=== PATIENT | female | born 1945 | race Hispanic/Latino ===

== ENCOUNTER 2019-02-21 18:18 | Emergency (ER) | payer OTHER ==
--- OUTSIDE RECORDS SUMMARY | 2019-02-21 18:22 | XMS REPORT | Summary of Care ---
:1945 Author Organization [facility] Address [address] [place] [id number] Encounter HQ He_júnior(MATTEO) [id number] Date(s): 08/06/15 - 08/06/[address] [phone] Discharge Disposition: Home Attending Physician: Livier Ngo MD Referring Physician: Livier Ngo MD Vital Signs Most recent to oldest [Reference Range]: 1 Height 167.64 cm (08/06/15 3:12 PM) Most recent to oldest [Reference Range]: 1 Blood Pressure [90-140/60-90 mmHg] 139/66 mmHg (08/06/15 3:12 PM) Most recent to oldest [Reference Range]: 1 Respiratory Rate [14-20 BRMIN] 18 BRMIN (08/06/15 3:12 PM) Most recent to oldest [Reference Range]: 1 Peripheral Pulse Rate [60-100 bpm] 59 bpm *LOW* (08/06/15 3:12 PM) Most recent to oldest [Reference Range]: 1 Weight 90.455 kg (08/06/15 3:12 PM) Most recent to oldest [Reference Range]: 1 Body Mass Index 32.19 m2 (08/06/15 3:12 PM) Problem List Condition Effective Dates Status Health Status Informant Gait abnormality(Confirmed) Active Diabetes mellitus(Confirmed) Active 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 Hypertension(Confirmed) Active Neurogenic bladder(Confirmed) Active Neurogenic bowel(Confirmed) Resolved Neuropathic pain(Confirmed) Active Obesity(Confirmed) Active 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) Vertigo(Confirmed) Active Allergies, Adverse Reactions, Alerts Substance Reaction Severity Status NKDA Active Medications DULoxetine 30 mg oral delayed release capsule 30 mg=1 cap, PO, Daily, # 30 cap, 0 Refill(s) Start Date: 08/06/15 Status: Orderedmeclizine 25 mg oral tablet 25 mg=1 tab, PO, BID, PRN for dizziness, # 60 tab, 0 Refill(s) Start Date: 08/06/15 Status: Orderedmeloxicam 7.5 mg oral tablet 7.5 mg=1 tab, PO, Daily, # 30 tab, 0 Refill(s) Start Date: 08/06/15 Status: Ordered Results No data available for this section Immunizations No data available for this section Procedures Procedure Date Related Diagnosis Body Site Appendectomy Bunionectomy Cholecystectomy Procedure on back Social History Social History Type Response Smoking Status Never smoker; Exposure to Tobacco Smoke None; Cigarette Smoking Last 365 Days No; Reg Smoking Cessation Counseling No Assessment and Plan No data available for this section
--- OUTSIDE RECORDS SUMMARY | 2019-02-21 18:22 | XMS REPORT | Summary of Care ---
:1945 Author Organization [facility] Address [address] [place] [phone] Encounter HQ Lluvia(MATTEO) [id number] Date(s): 04/28/16 - 04/28/[address] Discharge Disposition: Home Attending Physician: Livier Ngo MD Referring Physician: Livier Ngo MD Vital Signs Most recent to oldest [Reference Range]: 1 Height 167.64 cm (04/28/16 3:13 PM) Blood Pressure [90-140/60-90 mmHg] 130/63 mmHg (04/28/16 3:13 PM) Respiratory Rate [14-20 BRMIN] 20 BRMIN (04/28/16 3:13 PM) Peripheral Pulse Rate [60-100 bpm] 63 bpm (04/28/16 3:13 PM) Weight 77.273 kg (04/28/16 3:13 PM) Body Mass Index 27.5 m2 (04/28/16 3:13 PM) Problem List Condition Effective Dates Status Health Status Informant Gait abnormality(Confirmed) Active Diabetes mellitus(Confirmed) 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 Hypertension(Confirmed) Active Neurogenic bladder(Confirmed) Active Neurogenic bowel(Confirmed) Resolved Neuropathic pain(Confirmed) Active Obesity(Confirmed) Active 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
--- OUTSIDE RECORDS SUMMARY | 2019-02-21 18:22 | XMS REPORT | Summary of Care ---
:1945 Author Encounter MELVI Teixeira(MATTEO) [id number] Date(s): 11/27/14 - 11/27/[address] [phone] [facility] Discharge Disposition: Home Physician Attending: Livier Ngo MD Physician_Referring: Livier Ngo MD Reason for Visit F/U Vital Signs Most recent to oldest [Reference Range]: 1 Height 167.64 cm (11/27/14 2:47 PM) Systolic Blood Pressure [90-140 mmHg] 147 mmHg *HI* (11/27/14 2:47 PM) Diastolic Blood Pressure [60-90 mmHg] 88 mmHg (11/27/14 2:47 PM) Respiratory Rate [14-20 BRMIN] 20 BRMIN (11/27/14 2:47 PM) Peripheral Pulse Rate [60-100 bpm] 73 bpm (11/27/14 2:47 PM) Weight 88.636 kg (11/27/14 2:47 PM) Body Mass Index 31.54 m2 (11/27/14 2:47 PM) Problem List Condition Effective Dates Status Health Status Informant Gait abnormality(Confirmed) Active Diabetes mellitus(Confirmed) 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 Hypertension(Confirmed) Active Neurogenic bladder(Confirmed) Active Neurogenic bowel(Confirmed) Resolved Neuropathic pain(Confirmed) Active 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) Vertigo(Confirmed) Active Allergies, Adverse Reactions, Alerts Substance Reaction Severity Status NKDA Active Medications Home Medication Refill(s) 0 Start Date: 11/27/14 Status: OrderedNexIUM 40 mg oral delayed release capsule 40 mg=1 cap, PO, Daily, # 30 cap, 0 Refill(s) Start Date: 11/27/14 Status: Ordered Medications Administered During Your Visit No data available for this section Immunizations No data available for this section Social History Social History Type Response Smoking Status Never smoker, Exposure to Tobacco Smoke None, Cigarette Smoking Last 365 Days No, Reg Smoking Cessation Counseling Yes
--- OUTSIDE RECORDS SUMMARY | 2019-02-21 18:22 | XMS REPORT | Summary of Care ---
:1945 Author Encounter MELVI Teixeira(MATTEO) [id number] Date(s): 08/14/14 - 08/14/[address] [phone] [facility] [place] Discharge Disposition: Home Physician Attending: Livier Ngo MD Physician_Referring: Livier Ngo MD Reason for Visit POST D/C FU Vital Signs Most recent to oldest [Reference Range]: 1 Height 167.64 cm (08/14/14 2:55 PM) Systolic Blood Pressure [90-140 mmHg] 117 mmHg (08/14/14 2:55 PM) Diastolic Blood Pressure [60-90 mmHg] 59 mmHg *LOW* (08/14/14 2:55 PM) Respiratory Rate [14-20 BRMIN] 20 BRMIN (08/14/14 2:55 PM) Peripheral Pulse Rate [60-100 bpm] 65 bpm (08/14/14 2:55 PM) Weight 90 kg (08/14/14 2:55 PM) Body Mass Index 32.02 m2 (08/14/14 2:55 PM) Problem List Condition Effective Dates Status Health Status Informant Gait abnormality(Confirmed) Active Diabetes mellitus(Confirmed) 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 Hypertension(Confirmed) Active Neurogenic bladder(Confirmed) Active Neurogenic bowel(Confirmed) Resolved Neuropathic pain(Confirmed) Active 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) Vertigo(Confirmed) Active Allergies, Adverse Reactions, Alerts Substance Reaction Severity Status NKDA Active Medications Centrum oral tablet 1 tab, PO, Daily, # 30 tab, 0 Refill(s) Start Date: 08/14/14 Status: OrderedDULoxetine 60 mg oral delayed release capsule 60 mg=1 cap, PO, Daily, # 30 cap, 0 Refill(s) Start Date: 08/14/14 Status: OrderedVESIcare 5 mg oral tablet 5 mg=1 tab, PO, Daily, # 30 tab, 0 Refill(s) Start Date: 08/14/14 Status: Ordered Results ELECTROLYTES Most recent to oldest [Reference Range]: 1 Sodium Lvl [135-145 mEq/L] 144 mEq/L (08/14/14 4:55 PM) Potassium Lvl [3.5-5.1 mEq/L] 3.9 mEq/L (08/14/14 4:55 PM) Chloride Lvl [95-109 mEq/L] 107 mEq/L (08/14/14 4:55 PM) CO2 [24-32 mEq/L] 28 mEq/L (08/14/14 4:55 PM) AGAP [10.0-20.0 mEq/L] 12.9 mEq/L (08/14/14 4:55 PM) CHEM PANEL Most recent to oldest [Reference Range]: 1 Creatinine Lvl [0.5-1.4 mg/dL] 0.8 mg/dL (08/14/14 4:55 PM) eGFR 77 mL/min/1.73m2 1 *NA* (08/14/14 4:55 PM) BUN [7-22 mg/dL] 21 mg/dL (08/14/14 4:55 PM) B/C Ratio [6-25] 26 *HI* (08/14/14 4:55 PM) Glucose Lvl [70-99 mg/dL] 114 mg/dL 2 *HI* (08/14/14 4:55 PM) Total Protein [6.4-8.4 g/dL] 6.8 g/dL (08/14/14 4:55 PM) Albumin Lvl [3.5-5.0 g/dL] 4.0 g/dL (08/14/14 4:55 PM) Globulin [2.0-4.0 g/dL] 2.8 g/dL (08/14/14 4:55 PM) A/G Ratio [0.7-1.6] 1.4 (08/14/14 4:55 PM) Calcium Lvl [8.5-10.5 mg/dL] 9.0 mg/dL (08/14/14 4:55 PM) ALT [0-65 unit/L] 18 unit/L (08/14/14 4:55 PM) AST [0-37 unit/L] 12 unit/L (08/14/14 4:55 PM) Alk Phos [39-136 unit/L] 108 unit/L (08/14/14 4:55 PM) Bili Total [0.2-1.3 mg/dL] 0.5 mg/dL (08/14/14 4:55 PM) 1Result Comment: The eGFR is calculated using the CKD-EPI formula. In most young , healthy individualsthe eGFR will be >90 mL/min/1.73m2. The eGFR declines with age. An eGFR of 60-89 may be normal in some populations, particularly the elderly, for whom the CKD-EPI formula has not been extensively validated. Use of the eGFR is not recommended in the following populations: Individuals with unstable creatinine concentrations, including patients and those with serious co-morbid conditions. Patients with extremes in muscle mass or diet. The data above are obtained from the National Kidney Disease Education Program ( NKDEP) which additionally recommends that when the eGFR is used in patients with extremes of body mass index for purposesof drug dosing, the eGFR should be multiplied by the estimated BMI.2Interpretive Data: Adult reference range values reflect the clinical guidelines of the [place] [employer].ANEMIA STUDY Most recent to oldest [Reference Range]: 1 Vitamin B12 Lvl [254-1320 pg/mL] 383 pg/mL (08/14/14 4:55 PM) Folate Lvl [>=3.0 ng/mL] 25.9 ng/mL (08/14/14 4:55 PM) THYROID PANEL Most recent to oldest [Reference Range]: 1 T4 Free [0.76-1.46 ng/dL] 0.98 ng/dL (08/14/14 4:55 PM) TSH [0.360-3.740 uIU/mL] 1.090 uIU/mL (08/14/14 4:55 PM) HEMATOLOGY Most recent to oldest [Reference Range]: 1 WBC [3.7-10.4 K/CMM] 5.9 K/CMM (08/14/14 4:55 PM) RBC [4.20-5.40 M/CMM] 4.33 M/CMM (08/14/14 4:55 PM) Hgb [12.0-16.0 g/dL] 13.0 g/dL (08/14/14 4:55 PM) Hct [36.0-48.0 %] 38.6 % (08/14/14 4:55 PM) MCV [80.0-98.0 fL] 89.1 fL (08/14/14 4:55 PM) MCH [27.0-31.0 pg] 30.0 pg (08/14/14 4:55 PM) MCHC [32.0-36.0 g/dL] 33.7 g/dL (08/14/14 4:55 PM) RDW [11.5-14.5 %] 13.5 % (08/14/14 4:55 PM) Platelet [133-450 K/CMM] 168 K/CMM (08/14/14 4:55 PM) MPV [7.4-10.4 fL] 9.4 fL (08/14/14 4:55 PM) Segs [45.0-75.0 %] 56.7 % (08/14/14 4:55 PM) Lymphocytes [20.0-40.0 %] 34.0 % (08/14/14 4:55 PM) Monocytes [2.0-12.0 %] 6.5 % (08/14/14 4:55 PM) Eosinophils [0.0-4.0 %] 2.2 % (08/14/14 4:55 PM) Basophils [0.0-1.0 %] 0.6 % (08/14/14 4:55 PM) Segs-Bands # [1.5-8.1 K/CMM] 3.4 K/CMM (08/14/14 4:55 PM) Lymphocytes # [1.0-5.5 K/CMM] 2.0 K/CMM (08/14/14 4:55 PM) Monocytes # [0.0-0.8 K/CMM] 0.4 K/CMM (08/14/14 4:55 PM) Eosinophils # [0.0-0.5 K/CMM] 0.1 K/CMM (08/14/14 4:55 PM) Medications Administered During Your Visit No data available for this section Immunizations No data available for this section Social History Social History Type Response Smoking Status Never smoker, Exposure to Tobacco Smoke None, Cigarette Smoking Last 365 Days No, Reg Smoking Cessation Counseling No
--- OUTSIDE RECORDS SUMMARY | 2019-02-21 18:22 | XMS REPORT | Continuity of Care Document ---
:1945 Author Organization Interface Problems Problem Status Onset Classification Date Comments Source Date Reported MARIAM F/U Active 01/30/20 [facility] 16 F/U Active 08/06/20 [facility] 15 POST D/C FU Active 05/07/20 [facility] 14 BILATERAL Active 02/05/[address] WEAKNESS Active 02/05/20 [facility],[address] Gait abnormality Active Problem 05/01/2016 [facility] Diabetes Active Problem 05/01/2016 [facility] mellitus Guillain [place] Active Problem 05/01/2016 [facility] syndrome Hypertension Active Problem 05/01/2016 [facility] Neurogenic Active Problem 05/01/2016 [facility] bladder Neurogenic bowel Resolved Problem 05/01/2016 [facility] Neuropathic pain Active Problem 05/01/2016 [facility] Obesity Active Problem 05/01/2016 [facility] AIDP (<span Active Problem 05/01/2016 [facility] ID="[id number]" >Confirmed</span >) Vertigo Active Problem 05/01/2016 [facility] MALAISE AND Active [facility] FOLLOW-UP EXAM Active [facility] NOS BRAIN INJURY NEC Active [facility] LT EFF Active [facility] INTRACRANIAL INJ INTCRAN INJ W/O Active [facility] LOSS OF CONSCIOUSNESS, I Medications Medication Details Route Status Patient Ordering Order Source Instructions Provider Date Metformin 500 mg=1 Active 04/28/20 [facility] hydrochloride tab, PO, 16 500 MG Oral BID-Meals, Tablet # 180 tab, 0 Refill(s) azelastine / 1 spray, Active 04/28/20 [facility] fluticasone NASAL, 16 BID, 0 Refill(s) Loratadine 10 mg=1 Active 04/28/20 [facility] tab, PO, 16 Daily, PRN Itching / rash / allergy symptoms, # 14 tab, 0 Refill(s) meclizine 25 mg 25 mg=1 Active 08/06/20 [facility] oral tablet tab, PO, 15 BID, PRN for dizziness, # 60 tab, 0 Refill(s) meloxicam 7.5 mg 7.5 mg=1 Active 08/06/20 [facility] oral tablet tab, PO, 15 Daily, # 30 tab, 0 Refill(s) DULoxetine 30 mg 30 mg=1 Active 08/06/20 [facility] oral delayed cap, PO, 15 release capsule Daily, # 30 cap, 0 Refill(s) Home Medication Refill(s) Active 11/27/20 [facility] 0 14 Esomeprazole 40 40 mg=1 Active 11/27/20 [facility] MG Enteric cap, PO, 14 Coated Capsule Daily, # [Nexium] 30 cap, 0 Refill(s) solifenacin 5 mg=1 Active 08/14/20 [facility] succinate 5 MG tab, PO, 14 Oral Tablet Daily, # [VESICARE] 30 tab, 0 Refill(s) DULoxetine 60 mg 60 mg=1 Active 08/14/20 [facility] oral delayed cap, PO, 14 release capsule Daily, # 30 cap, 0 Refill(s) Centrum oral 1 tab, PO, Active 08/14/20 [facility] tablet Daily, # 14 30 tab, 0 Refill(s) Allergies, Adverse Reactions, Alerts Substance Category Reaction Severity Reaction Status Date Comments Source type Reported Immunizations Immunization Date Given Site Status Last Updated Comments Source Results Order Name Results Value Reference Date Interpretation Comments Source Range ANEMIA Folate Lvl 25.9 ng/mL >=3.0 08/14 [facility] STUDY ng/mL /2013 ANEMIA Vitamin B12 383 pg/mL 254 - 1320 08/14 [facility] STUDY Lvl CHEM PANEL eGFR 77 08/14 1Result Comment: The eGFR is calculated using the CKD-EPI formula. In most young, healthy individuals the eGFR will be >90 mL/ min/1.73m2. The eGFR declines with age. An eGFR of 60-89 may be normal in [facility] mL/min/1.73 some populations, particularly the elderly, for whom the CKD-EPI formula has not been extensively validated. Use of the eGFR is not recommended in the following populations: m2 Individuals with unstable creatinine concentrations, including patients and those with serious co-morbid conditions. Patients with extremes in muscle mass or diet. The data above are obtained from the National Kidney Disease Education Program (NKDEP) which additionally recommends that when the eGFR is used in patients with extremes of body mass index for purposes of drug dosing, the eGFR should be multiplied by the estimated BMI. CHEM PANEL Bili Total 0.5 mg/dL 0.2 - 1.3 08/14 [facility] CHEM PANEL Alk Phos 108 unit/L 39 - 136 08/14 [facility] CHEM PANEL AST 12 unit/L 0 - 37 08/14 [facility] CHEM PANEL ALT 18 unit/L 0 - 65 08/14 [facility] CHEM PANEL Sodium Lvl 144 meq/L 135 - 145 08/14 [facility] CHEM PANEL Potassium 3.9 meq/L 3.5 - 5.1 08/14 [facility] Lv CHEM PANEL Chloride Lvl 107 meq/L 95 - 109 08/14 [facility] CHEM PANEL Creatinine 0.8 mg/dL 0.5 - 1.4 08/14 [facility] Lv CHEM PANEL BUN 21 mg/dL 7 - 22 08/14 [facility] CHEM PANEL CO2 28 meq/L 24 - 32 08/14 [facility] CHEM PANEL Calcium Lvl 9.0 mg/dL 8.5 - 10.5 08/14 [facility] CHEM PANEL Total 6.8 g/dL 6.4 - 8.4 08/14 CHEM PANEL Albumin Lvl 4.0 g/dL 3.5 - 5.0 08/14 [facility] CHEM PANEL Glucose Lvl 114 mg/dL 70 - 99 08/14 2Interpretive Data: Adult reference range values reflect the clinical guidelines of the [place] [employer]. CHEM PANEL AGAP 12.9 meq/L 10.0 - 08/14 [facility] 20. CHEM PANEL B/C Ratio 26 6 - 25 08/14 [facility] CHEM PANEL Globulin 2.8 g/dL 2.0 - 4.0 08/14 [facility] CHEM PANEL A/G Ratio 1.4 0.7 - 1.6 08/14 [facility] HEMATOLOGY RDW 13.5 % 11.5 - 08/14 [facility] 14. HEMATOLOGY Platelet 168 K/CMM 133 - 450 08/14 [facility] HEMATOLOGY MCV 89.1 fL 80.0 - 08/14 [facility] 98.0 /2013 HEMATOLOGY Hct 38.6 % 36.0 - 08/14 [facility] 48.0 /2013 HEMATOLOGY MCHC 33.7 g/dL 32.0 - 08/14 [facility] 36.0 /2013 HEMATOLOGY MCH 30.0 pg 27.0 - 08/14 [facility] 31.0 /2013 HEMATOLOGY Hgb 13.0 g/dL 12.0 - 08/14 [facility] 16.0 HEMATOLOGY RBC 4.33 M/CMM 4.20 - 08/14 [facility] 5.40 /2013 HEMATOLOGY WBC 5.9 K/CMM 3.7 - 10.4 08/14 [facility] /2013 HEMATOLOGY MPV 9.4 fL 7.4 - 10.4 08/14 [facility] /2013 HEMATOLOGY Monocytes 6.5 % 2.0 - 12.0 08/14 [facility] /2013 HEMATOLOGY Eosinophils 2.2 % 0.0 - 4.0 08/14 [facility] /2013 HEMATOLOGY Basophils 0.6 % 0.0 - 1.0 08/14 [facility] /2013 HEMATOLOGY Segs-Bands # 3.4 K/CMM 1.5 - 8.1 08/14 [facility] /2013 HEMATOLOGY Segs 56.7 % 45.0 - 08/14 [facility] 75.0 /2013 HEMATOLOGY Lymphocytes 34.0 % 20.0 - 08/14 [facility] 40.0 HEMATOLOGY Eosinophils 0.1 K/CMM 0.0 - 0.5 08/14 [facility] # /2013 HEMATOLOGY Lymphocytes 2.0 K/CMM 1.0 - 5.5 08/14 [facility] # /2013 HEMATOLOGY Monocytes # 0.4 K/CMM 0.0 - 0.8 08/14 [facility] /2013 THYROID T4 Free 0.98 ng/dL 0.76 - 08/14 [facility] PANEL 1.46 THYROID TSH 1.090 0.360 - 08/14 [facility] PANEL uIU/mL 3.740 /2013 Chest 1view Chest 1view PORTABLE CHEST 2014-02-05 16:28:00 02/05 - - [facility] COMPARISON: None Read by: Callum Foote Dictated Date/time: 02/05/14 16:51 Electronically Signed by: Callum Foote MD 02/05/14 16:52 FINAL REPORT CLINICAL INDICATION: Dyspnea DISCUSSION: Lung volumes are low. Subsegmental atelectasis is seen within the left lower lobe. No evidence of airspace disease. No pleural effusions or pneumothorax. Cardiac silhouette is normal in size. Aorta is unfolded. IMPRESSION: Subsegmental atelectasis within left lower lobe. Spine Spine entire EXAM: MRI SPINE, ENTIRE 02/04 - [facility] entire w/wo w/ /2013 - Medical contrast contrast MRI Center MRI DATE: 2014-02-04 19:53:00. Read by: Francisco J Gerard Dictated Date/time: 02/05/14 09:50 Electronically Signed by: Francisco J Gerard MD 02/05/14 10:31 FINAL REPORT INDICATION: TECHNIQUE: Sagittal T1, sagittal T2, axial T1, and axial T2-weighted images of the cervical, thoracic and lumbar spine are obtained without contrast. Postcontrast sagittal and axial T1-weighted images were also obtained after the uneventful administration of 17 cc intravenous gadolinium. FINDINGS: The examination is performed as a study of the entire spine entire spine. Therefore, axial images are obtained at a greater than standard interval. As a consequence, evaluation of the patient's degenerative disease is somewhat limited. Cervical Spine: The visualized portions of the brain parenchyma are unremarkable. The craniocervical junction has a normal appearance. The cerebellar tonsils are in the normal position. No focal signal abnormality is i dentified within the cervical cord. No intradural pathology is present. There is reversal of the cervical lordotic curvature centered at C5. Generative retrolisthesis of C3 is present with respect to C4. Similarly, there is degenerative retrolisthesis of C5 with respect to the adjacent 2 vertebral bodies. Vertebral height is maintained and marrow signal is unremarkable. C2-C3: Unremarkable C3-C4: No focal disk pathology a diffuse bulge of the posterior annulus combines with redundancy of the ligamenta flava to narrow the ventral and dorsal subarachnoid spaces without cord compression. The foramina are grossly patent. C4-C5: Minimal degenerative changes are present without focal disc pathology. The foramina appear patent. C5-C6: As a result of the alignment abnormality there is narrowing of the ventral subarachnoid space and posterior displacement of the cord with possible ventral indentation. Bilateral foraminal narrowi ng is noted, mild on the right and minimal on the left. C6-C7: Unremarkable C7-T1: Unremarkable Thoracic Spine: Minimal right convex curvature of the thoracic spine is noted. AP alignment is normal. Marrow signal is normal. Intervertebral disk height is maintained. No focal disk pathology is identified. No spinal canal stenosis is present. Signal, caliber and contour of the spinal cord is unremarkable. No pathologic enhancement is identified after administration of intravenous contrast. Lumbar Spine: The conus medullaris terminates at the L1 level. It has a normal contour and normal signal characteristics. No intradural pathology is identified. Alignment is normal. Vertebral height and signal characteristics are unremarkable. Elevated T2 signal in the posterior disc annulus at L3-L4 is parallel to the posterior longitudinal ligament and evidence of degenerative change rather than a radial tear. No focal disc pathology is present at this level otherwise. L4-L5, there is minimal loss of disc signal intensity although disc height is maintained. L5-S1 there is loss of intervertebral disc height and signal, most pronounced posteriorly. The patient has had prior laminectomies at this level. No residual or recurrent disc protrusion is evident. Intervertebral disk height and signal are otherwise maintained. No other focal disk pathology is evident. There is no evidence of significant spinal canal or neural foraminal stenosis. No pathologic enh ancement is identified after administration of intravenous contrast. IMPRESSION: The examination is performed as a study of the entire spine entire spine. Therefore, axial images are obtained at a greater than standard interval. As a consequence, evaluation of the patient's degenerative disease is somewhat limited. 1. No cord neoplasm or other cord signal to indicate demyelinating disease or infection. 2. No extradural mass lesion. 3. The nerve roots do not appear thickened or to enhance pathologically. 4. Cervical spine degenerative changes resulting in a mild degree of cord impingement at C5-C6. 5. Lumbar degenerative disease at L5-S1 with evidence of prior surgery. No residual or recurrent disc herniation is present. Vital Signs Vital Sign Value Date Comments Source Weight 77.273 04/28/2016 [facility] Height 167.64 cm 04/28/2016 [facility] BMI Calculated 27.5 04/28/2016 [facility] Respitory Rate 20 04/28/2016 [facility] Systolic (mm Hg) 130 04/28/2016 [facility] Diastolic (mm Hg) 63 04/28/2016 [facility] Heart Rate 63 04/28/2016 [facility] Height 167.64 cm 08/06/2015 [facility] Weight 90.455 08/06/2015 [facility] BMI Calculated 32.19 08/06/2015 [facility] Systolic (mm Hg) 139 08/06/2015 [facility] Diastolic (mm Hg) 66 08/06/2015 [facility] Respitory Rate 18 08/06/2015 [facility] Heart Rate 59 08/06/2015 [facility] Height 167.64 cm 11/27/2014 [facility] Weight 88.636 11/27/2014 [facility] BMI Calculated 31.54 11/27/2014 [facility] Diastolic (mm Hg) 88 11/27/2014 [facility] Respitory Rate 20 11/27/2014 [facility] Systolic (mm Hg) 147 11/27/2014 [facility] Heart Rate 73 11/27/2014 [facility] Diastolic (mm Hg) 59 08/14/2014 [facility] Systolic (mm Hg) 117 08/14/2014 [facility] Respitory Rate 20 08/14/2014 [facility] Heart Rate 65 08/14/2014 [facility] Weight 90 08/14/2014 [facility] BMI Calculated 32.02 08/14/2014 [facility] Height 167.64 cm 08/14/2014 [facility] Encounters Location Location Encounter Encounter Reason Attending ADM DC Status Source Details Type Number For Provider Date Date [facility] [id number] 08[facility]14 08/15 [facility]2013 [facility] [id number] Livier 11/27 11/28 [facility]- /2013 [facility] [place] [facility] [id number] [place] 08/06 08/07 [facility] /2014 [facility] [id number] [place] 04/28 04/29 [facility] /2015 [facility] Procedures Procedure Code Date Perfomer Comments Source Appendectomy [id number] [facility] Bunionectomy [id number] [facility] Cholecystectomy [id number] [facility] Procedure on back [id number] [facility]
--- NOTE | 2019-02-21 20:16 | RAD REPORT ---
EXAM DESCRIPTION: Nabila García (2 Views)02/21/2019 7:50 pm CLINICAL HISTORY: Chest pain COMPARISON: None FINDINGS: The lungs appear clear of acute infiltrate. The heart is normal size IMPRESSION: No acute abnormalities displayed
--- NOTE | 2019-02-21 20:48 | RAD REPORT ---
EXAM DESCRIPTION: RAD - Knee Right 3 View - 02/21/2019 8:43 pm CLINICAL HISTORY: Right knee pain FINDINGS: No fracture or dislocation is seen.
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
--- NOTE | 2019-02-21 21:05 | RAD REPORT ---
EXAM DESCRIPTION: RAD - Knee Left 3 View - 02/21/2019 8:43 pm CLINICAL HISTORY: Left knee pain status post injury FINDINGS: No fracture or dislocation is seen.
[2019-02-21] MEDS ORDERED: IBUPROFEN 400 MG TAB ONE (21:17)
[2019-02-21 22:25] VITALS: BP 124/59; TEMP 97.8; O2SAT 97
== END 2019-02-21 21:22 | disposition home or self-care (01) ==
LOC: ER 18:18
DX: R07.89 Other chest pain (principal); M25.562 Pain in left knee; M25.561 Pain in right knee; V49.50XA Passenger injured in collision with unspecified motor vehicles in traffic accident, initial encounter; Z79.82 Long term (current) use of aspirin; E11.9 Type 2 diabetes mellitus without complications
CPT/HCPCS: 71046; 99284

== ENCOUNTER 2023-11-07 10:08 | Inpatient (IN) | payer OTHER ==
[2023-11-07 10:52] LABS: Absolute Lymphocytes (CBC) 0.4 K/uL (0.7-4.9); Hematocrit 36.7 % (36.0-45.0); Lymphocytes % 5.8 % (15.3-44.8); MCV 87.5 fL (80-100); MPV 8.1 fL (7.6-11.3); Platelets 168 thou/uL (152-406); RBC Red Blood Cell Count 4.19 M/uL (3.86-4.86)
[2023-11-07 10:59] LABS: Protime INR 1.18
--- NOTE | 2023-11-07 11:03 | RAD REPORT ---
[facility] CLINICAL HISTORY: COUGH COMPARISON: Chest Pa And Lat (2 Views) dated 02/21/2019; Chest Single View dated 09/15/2017; Chest Si ngle View dated 07/29/2016; CHEST SINGLE VIEW dated 06/24/2011 TECHNIQUE: Portable AP view of the chest. FINDINGS: Decreased inspiratory effort limits evaluation. Streaky perihilar opacities and bronchial wall thickening. No pneumothorax or effusion. The cardiomediastinal contours are unremarkable. IMPRESSION: Findings suggestive of reactive airway changes or viral infection, without evidence of f ocal pneumonia.
[2023-11-07 11:10] LABS: Albumin 3.7 g/dL (3.4-5.0); Bilirubin Total 0.8 mg/dL (0.2-1.0); Potassium 3.5 mEq/L (3.5-5.1); Protein, Total 7.4 g/dL (6.4-8.2)
[2023-11-07] MEDS ORDERED: NA CHLORIDE 0.9% 500 ML ONE (11:14)
[2023-11-07] MEDS ORDERED: ACETAMINOPHEN 500 MG TAB ONE (11:14)
[2023-11-07 11:47] LABS: SARS-CoV-2 Antigen Rapid Res Negative (Negative)
--- NOTE | 2023-11-07 12:06 | RAD REPORT ---
EXAM DESCRIPTION: CT - Head C Spine Cap Mian Regan - 11/07/2023 11:21 am CLINICAL HISTORY: fall, head/neck/back pain, weak lower ext COMPARISON: MRI brain 01/10/2020 TECHNIQUE: Head and cervical spine CT images were obtained without IV contrast. Chest, abdomen, and pelvis CT images were obtained following intravenous administration of 100 mL Isovue-300. Multiplanar reformats were generated and reviewed. All CT scans are performed using dose optimization technique as appropriate and may include automated exposure control or mA/KV adjustment according to patient size. FINDINGS: CT HEAD: No intracranial hemorrhage, mass effect, or edema. No evidence of acute territorial infarct. No midli ne shift or abnormal fluid collection. The ventricles are normal in caliber and configuration for age . Basal cisterns are patent. Mastoid aircells and paranasal sinuses are clear. No acute skull fractur e. CT CERVICAL SPINE: No acute cervical spine fracture or subluxation. Vertebral body heights are well maintained. Facet joann ints are normal in alignment. No hyperattenuating canal hematoma. Prevertebral and paraspinous soft t issues are unremarkable. CT CHEST: No pneumothorax, pulmonary contusion or pleural fluid collection. No mediastinal hematoma and the aor ta and pulmonary arteries are unremarkable. No chest will mass or abnormal axillary finding. No displ aced rib fracture or other significant bony finding. CT ABDOMEN/ PELVIS: No evidence of traumatic injury to solid abdominal viscera. Gallbladder was surgically removed. Bilia ry tree is unremarkable. Mild colonic diverticulosis. Right lower pole cortical fluid density 1.3 cm cyst. No bowel injury or significant finding. No free air, free fluid or abnormal fat stranding. No u rinary bladder abnormality. No significant bony finding. Subcutaneous soft tissue swelling and fat stranding along the anterior right upper thigh. IMPRESSION: Mild soft tissue contusion along the included anterior right upper thigh. No other acute traumatic findings. Incidental findings as above.
[2023-11-07] MEDS ORDERED: OSELTAMIVIR 75 MG CAP PO ONE (12:29)
--- NOTE | 2023-11-07 12:34 | ER ---
Nurse's Notes [facility] Name: Gabriella Whyte Age: 77 yrs Sex: Female : 1945 Arrival Date: 11/07/2023 Time: 10:08 Bed 7 Private MD: Diagnosis: Influenza due to identified novel influenza A virus with other respiratory manifestations;Weakness Presentation: 11/07 10:13 Chief complaint: EMS states: Pt fell this morning around one and landed on her right rs5 side, pt denies LOC, reports feeling weak. Coronavirus screen: At this time, the client does not indicate any symptoms associated with coronavirus-19. Ebola Screen: No symptoms or risks identified at this time. Initial Sepsis Screen: Does the patient meet any 2 criteria? HR > 90 bpm. Does the patient have a suspected source of infection? No. Patient's initial sepsis screen is negative. Risk Assessment: Do you want to hurt yourself or someone else? Patient reports no desire to harm self or others. Onset of symptoms was November 07, 2023. Care prior to arrival: IV initiated. 22 GA, in the right hand. 10:13 Method Of Arrival: EMS: 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 - Social history:: Smoking status: Patient denies any tobacco usage or history of. - Family history:: not pertinent. - Hospitalizations: : No recent hospitalization is reported. - History obtained from: grandson. Screenin:11 [facility] ED Fall Risk Assessment (Adult) History of falling in the last 3 months, rs5 including since admission Yes- single mechanical fall (1 pt) Confusion or Disorientation No (0 pts) Intoxicated or Sedated No (0 pts) Impaired Gait Yes (1 pt) Mobility Assist Device Used No (0 pt) Altered Elimination No (0 pt) Score/Fall Risk Level 0 - 2 = Low Risk Oriented to surroundings, Maintained a safe environment. Abuse screen: Denies threats or abuse. Nutritional screening: No deficits noted. Tuberculosis screening: No symptoms or risk factors identified. Assessment: 10:11 General: Appears in no apparent distress. comfortable, Behavior is calm, cooperative. rs5 Pain: Denies pain. Neuro: Level of Consciousness is awake, alert, obeys commands, Oriented to person, place, time, situation. Neuro: Weather Teacher are equal bilaterally Moves all extremities. Speech is normal, Facial symmetry appears normal, Pupils are PERRLA, Pupil Size: 3 mm Intact Pt reports lower extremity weakness bilat. Pt states "I'm usually able to walk around just fine without a walker or a cane, I don't know why but my legs started feeling really weak and heavy this morning around one in the morning and so I fell this morning and I had trouble getting up". Cardiovascular: Heart tones S1 S2 present Patient's skin is warm and dry. Rhythm is regular. Respiratory: Respiratory effort is even, unlabored, Respiratory pattern is regular, symmetrical, Breath sounds are clear bilaterally. GI: Abdomen is round non-distended, Bowel sounds present X 4 quads. Abd is soft and non tender X 4 quads. 10:11 : No signs and/or symptoms were reported regarding the genitourinary system. EENT: No rs5 signs and/or symptoms were reported regarding the EENT system. Derm: Skin is intact, Skin is dry, Skin is normal, Skin temperature is warm Small abrasion noted to right knee and right elbow, no bleeding noted. Musculoskeletal: Circulation, motion, and sensation intact. Range of motion: intact in all extremities, Pt reports bilat lower extremity weakness. Pt states "I can move my lower legs just fine when I'm in bed but they feel weak and heavy and I am unable to support my weight". 10:11 Reassessment: Pt has a cervical collar placed by EMS. rs5 11:20 Reassessment: Patient and/or family updated on plan of care and expected duration. Pain rs5 level reassessed. Patient is alert, oriented x 3, equal unlabored respirations, skin warm/dry/pink. 12:30 Reassessment: Pt in bed, eyes closed, respirations even and unlabored, side rails up rs5 x2, normal sinus rhythm noted on monitor . 13:26 Reassessment: No changes from previously documented assessment. rs5 Vital Signs: 10:13 BP 121 / 64; Pulse 110; Resp 17; Temp 99.8(O); Pulse Ox 93% on R/A; rs5 11:42 BP 108 / 54; Pulse 89; Resp 16; Pulse Ox 99% on R/A; iw 12:30 BP 117 / 53; Pulse 77; Resp 18; Pulse Ox 99% on R/A; rs5 13:00 Weight 75.75 kg (R); Height 5 ft. 7 in. ; rs5 13:26 BP 120 / 55; Pulse 75; Resp 17; Pulse Ox 99% on R/A; rs5 13:00 Body Mass Index 26.16 (75.75 kg, 170.18 cm) rs5 ED Course: 10:11 Patient arrived in ED. rn 10:11 Victor Manuel Burt MD is Attending Physician. rn 10:11 Patient has correct armband on for positive identification. Placed in gown. Bed in low rs5 position. Call light in reach. Side rails up X 1. 10:12 Bob Sadler, RN is Primary Nurse. rs5 10:16 Triage completed. rs5 10:58 Chest Single View XRAY In Process Unspecified. EDMS 11:23 CT Traumagram (Head C Spine CAP W Con) In Process Unspecified. EDMS 11:49 No provider procedures requiring assistance completed. rs5 12:33 Ashlee Perrin MD is Hospitalizing Provider. rn 13:51 Patient admitted, IV remains in place. rs5 15:17 initiated transfer to [facility] as requested by Dr Perrin. bd 15:38 pt accepted in transfer to [facility] by Dr Patel,admin approval given by Estephania Murguia RN, pt going to 5 [facility] neuro floor. Administered Medications: 10:30 Drug: NS 0.9% IV 500 ml IV at bolus once Route: IV; Rate: bolus; Site: right rs5 antecubital; 10:45 Follow up: Response: No adverse reaction rs5 11:14 Drug: Acetaminophen PO 650 mg PO once Route: PO; rs5 11:49 Follow up: Response: No adverse reaction rs5 12:15 Drug: Oseltamivir PO 75 mg PO once Route: PO; rs5 Medication: 11:49 VIS not applicable for this client. rs5 Outcome: 12:34 Decision to Hospitalize by Provider. rn 13:50 Admitted to ER Hold. Please see [facility] for further documentation. rs5 13:50 Condition: stable 13:50 Discharge instructions given to patient, family, Instructed on the need for admit, Demonstrated understanding of instructions, 17:56 Patient left the ED. iw Signatures: Dispatcher [employer] Em Andrew Irene, RN RN iw Nieto, Roman, MD MD rn Sotelo, Ricky, RN RN rs5
--- NOTE | 2023-11-07 12:34 | EDPHYS ---
Physician Documentation [facility] Name: Gabriella Whyte Age: 77 yrs Sex: Female : 1945 Arrival Date: 11/07/2023 Time: 10:08 Bed 7 Private MD: ED Physician Victor Manuel Burt HPI: 11/07 10:37 This 77 yrs old Female presents to ER via EMS with complaints of fall, rn weakness. 10:37 Details of fall: The patient fell from an upright position, while standing. Onset: The rn symptoms/episode began/occurred last night. Associated injuries: The patient sustained injury to the head, neck injury. Severity of symptoms: At their worst the symptoms were mild, in the emergency department the symptoms are unchanged. The patient has not experienced similar symptoms in the past. Patient reports fell last night when going to the bathroom. Reports hitting head and pain to head and neck. Reports subjective fever and cough for 2 days. Reports generalized weakness with lower extremities worse than the upper extremities. No shortness of breath.. 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 - Social history:: Smoking status: Patient denies any tobacco usage or history of. - Family history:: not pertinent. - Hospitalizations: : No recent hospitalization is reported. - History obtained from: grandson. ROS: 10:37 Constitutional: Positive for fever Neck: Positive for mild neck pain Cardiovascular: rn Negative for chest pain, palpitations, and edema, Respiratory: Positive for cough, negative for shortness of breath Abdomen/GI: Negative for abdominal pain, nausea, vomiting, diarrhea, and constipation, : Negative for injury, bleeding, discharge, and swelling, MS/Extremity: Negative for injury and deformity, Skin: Negative for injury, rash, and discoloration, Neuro: Positive for headache and generalized weakness Exam: 10:37 Constitutional: This is a well developed, well nourished patient who is awake, alert, rn and in no acute distress. Head/Face: Normocephalic, atraumatic. Eyes: Pupils equal round and reactive to light, extra-ocular motions intact. Periorbital areas with no swelling, redness, or edema. ENT: No oral trauma noted Neck: Patient in c-collar from EMS, no midline tenderness, no swelling, trachea midline Chest/axilla: Normal chest wall appearance and motion. Nontender with no deformity. Cardiovascular: Tachycardic, regular. No pulse deficits. Respiratory: Mild tachypnea. Speaking full sentences. No retractions. Abdomen/GI: Soft, non-tender Back: No spinal tenderness MS/ Extremity: Pulses equal, no cyanosis. Neurovascular intact. Neuro: Awake and alert, GCS 15, oriented to person, place, time, and situation. Cranial nerves II-XII grossly intact. Motor strength 4/5 in all extremities, slightly weaker in lower extremities compared to upper extremities.. Sensory grossly intact. Cerebellar exam normal. 12:46 ECG was reviewed by the Attending Physician. rn Vital Signs: 10:13 BP 121 / 64; Pulse 110; Resp 17; Temp 99.8(O); Pulse Ox 93% on R/A; rs5 11:42 BP 108 / 54; Pulse 89; Resp 16; Pulse Ox 99% on R/A; iw 12:30 BP 117 / 53; Pulse 77; Resp 18; Pulse Ox 99% on R/A; rs5 13:00 Weight 75.75 kg (R); Height 5 ft. 7 in. ; rs5 13:26 BP 120 / 55; Pulse 75; Resp 17; Pulse Ox 99% on R/A; rs5 13:00 Body Mass Index 26.16 (75.75 kg, 170.18 cm) rs5 MDM: 10:11 Patient medically screened. rn 10:37 Care significantly affected by the following chronic conditions: Diabetes, rn Hypertension, Vertigo and history of Guillain-Butler. 12:31 Differential diagnosis: contusion. rn 12:32 Data reviewed: vital signs, nurses notes, and as a result, I will admit patient. rn 12:32 Consideration of Admission/Observation Patient was admitted/placed on observation. rn Escalation of care including admission/observation considered. Management of patient was discussed with the following: Hospitalist: Will see and evaluate patient. Independent interpretation of the following test(s) in the Emergency Department X-Ray: My interpretation is Chest x-ray images show interstitial prominence per my interpretation. Counseling: I had a detailed discussion with the patient and/or guardian regarding the historical points, exam findings, and any diagnostic results supporting the discharge/admit diagnosis, lab results, radiology results, the need for further work-up and treatment in the hospital. Response to treatment: the patient's symptoms have mildly improved after treatment, and as a result, I will admit patient. ED course: Patient with oxygen 93% on room air, signs of viral infection on chest x-ray, positive flu A. I feel like at this time has generalized weakness but lower extremities are slightly weaker than upper extremities. Given history of Guillain-Butler, will observe in hospital to make sure she does not need further workup. At this time I had a long discussion with family and LP not indicated emergently at this time. Will defer to neurology and hospitalist service.. 14:40 ED course: Patient evaluated by Dr. Perrin, who in turn consulted Dr. Frazier, both rn recommend transfer for workup and evaluation for possible Guillain-Butler as they state if that is what she has we do not have IVIG here to administer and treat. Transfer initiated. 14:59 ED course: Inpatient admission orders have been placed, Dr. Perrin will initiate transfer rn now. 11/07 10:12 Order name: Blood Culture Adult (2) rn 11/07 10:12 Order name: CBC with Diff; Complete Time: 11:32 rn 11/07 10:12 Order name: CMP; Complete Time: 11:32 rn 11/07 10:12 Order name: Lactate w/ 2H reflex if indic.; Complete Time: 11:32 rn 11/07 10:12 Order name: Protime (+inr); Complete Time: 11:32 rn 11/07 10:12 Order name: Ptt, Activated; Complete Time: 11:32 rn 11/07 10:12 Order name: Urinalysis w/ reflexes; Complete Time: 14:41 rn 11/07 10:12 Order name: Flu; Complete Time: 12:08 rn 11/07 10:12 Order name: SARS RAPID; Complete Time: 12:08 rn 11/07 13:55 Order name: CBC with Automated Diff EDMS 11/07 13:55 Order name: CBC with Automated Diff EDMS 11/07 13:55 Order name: Comprehensive Metabolic Panel EDMS 11/07 13:55 Order name: Comprehensive Metabolic Panel EDMS 11/07 10:12 Order name: Chest Single View XRAY; Complete Time: 11:32 rn 11/07 10:12 Order name: CT Traumagram (Head C Spine CAP W Con); Complete Time: 12:08 rn 11/07 12:32 Order name: XRAY Femur RIGHT rn 11/07 14:26 Order name: RAD; Complete Time: 14:41 EDMS 11/07 10:12 Order name: EKG; Complete Time: 10:13 rn 11/07 13:55 Order name: CONS Physician Consult EDWA 11/07 10:12 Order name: Accucheck; Complete Time: 11:06 rn 11/07 10:12 Order name: Cardiac monitoring; Complete Time: 11:06 rn 11/07 10:12 Order name: EKG - Nurse/Tech; Complete Time: 11:16 rn 11/07 10:12 Order name: IV Saline Lock - Large Bore; Complete Time: 11:06 rn 11/07 10:12 Order name: Labs collected and sent; Complete Time: 11:06 rn 11/07 10:12 Order name: O2 Per Protocol; Complete Time: 11:06 rn 11/07 10:12 Order name: O2 Sat Monitoring; Complete Time: 11:06 rn 11/07 10:12 Order name: Vital Signs; Complete Time: 11:06 rn EC:46 Rate is 97 beats/min. Rhythm is regular. QRS [place] is Normal. [place] interval is normal. QRS rn interval is normal. QT interval is normal. T waves are Normal. No ST changes noted. Clinical impression: NSR w/ Non-specific ST/T Changes. Interpreted by me. Reviewed by me. Administered Medications: 10:30 Drug: NS 0.9% IV 500 ml IV at bolus once Route: IV; Rate: bolus; Site: right rs5 antecubital; 10:45 Follow up: Response: No adverse reaction rs5 11:14 Drug: Acetaminophen PO 650 mg PO once Route: PO; rs5 11:49 Follow up: Response: No adverse reaction rs5 12:15 Drug: Oseltamivir PO 75 mg PO once Route: PO; rs5 Disposition Summary: 11/07/23 12:34 Hospitalization Ordered Notes: Hospitalization Status: Observation rn Provider: Ashlee Perrin rn Condition: Stable rn Problem: new rn Symptoms: have improved rn Bed/Room Type: Standard rn Location: [facility] ER HOLD(11/07/23 14:27) bd Room Assignment: ERHOLD-(11/07/23 14:27) bd Diagnosis - Influenza due to identified novel influenza A virus with other respiratory rn manifestations - Weakness rn Forms: - Medication Reconciliation Form rn - SBAR form rn - Leadership Thank You Letter rn Signatures: Dispatcher [employer] EDEm Wheeler Roman, MD MD rn Sotelo, Ricky RN RN rs5 Corrections: (The following items were deleted from the chart) 14: 12:34 Telemetry/MedSurg (observation) rn bd 14: 12:34 rn bd
[2023-11-07 13:14] LABS: Urine Bacteria None Seen /HPF (<20); Urine Bilirubin NEGATIVE (Negative); Urine Blood Negative (Negative); Urine Clarity Clear (Clear); Urine Color Light-Yellow (Yellow); Urine Glucose NEGATIVE (Negative); Urine Mucus Slight /HPF (None Seen); Urine Protein TRACE (Negative); Urine RBC <5 /HPF (None Seen); Urine Urobilinogen Normal (Normal); Urine pH 6.5 (5.0-7.0)
[2023-11-07 13:17] LABS: Specific Gravity > 1.030 (1.005-1.030)
[2023-11-07] MEDS ORDERED: MORPHINE 2 MG/ML SYR IV PRN (13:50)
[2023-11-07] MEDS ORDERED: ALBUTEROL 2.5 MG/3 ML NEB SOL NEB PRN (13:50)
[2023-11-07] MEDS ORDERED: IPRATROPIUM BROM 0.5MG/2.5ML NEB PRN (13:50)
[2023-11-07] MEDS ORDERED: ONDANSETRON 4 MG/2 ML VIAL IV PRN (13:50)
[2023-11-07] MEDS ORDERED: ACETAMINOPHEN 500 MG TAB PO PRN (13:50)
[2023-11-07] MEDS ORDERED: NA CHLORIDE 0.9% 1,000 ML IV SCH (14:00)
--- NOTE | 2023-11-07 14:04 | P.HP ---
Certification for Inpatient Patient admitted to: Inpatient With expected LOS: >2 Midnights Patient will require the following post-hospital care: None Practitioner: I am a practitioner with admitting privileges, knowledge of patient current condition, hospital course, and medical plan of care. Services: Services provided to patient in accordance with Admission requirements found in Title 42 Section 412.3 of the Code of Federal Regulations Patient History Date of Service: 11/07/23 Reason for admission: Weakness; AMS Allergies No Known Allergies Allergy (Verified 11/12/12 02:56) Home Medications: Metformin HCl [Glucophage*] 500 mg PO BID 11/12/12 Aspirin [Low Dose Aspirin EC] 81 mg PO DAILY 07/29/16 Solifenacin [Vesicare*] 5 mg PO DAILY 07/29/16 - Past Medical/Surgical History Diabetic: Yes -: guillain-barre -: bunyons removed from left foot -: back sx due to fall and dislocation of discs -: appendectomy -: cholecystectomy - Family History Father Medical History: Cancer, Other (see notes) Notes: Prostate Mother Medical History: Other (see notes) Notes: severe rheumatoid arthritis - Social History Smoking Status: Former smoker Alcohol use: No CD- Drugs: No Caffeine use: Yes Review of Systems 10-point ROS is otherwise unremarkable Physical Examination - Vital Signs Temperature: 98 F Blood Pressure: 140/80 Pulse: 60 Respirations: 18 Pulse Ox (%): 95 - Physical Exam General: Alert, In no apparent distress, Oriented x3 HEENT: Atraumatic, PERRLA, Mucous membr. moist/pink, EOMI, Sclerae nonicteric Neck: Supple, 2+ carotid pulse no bruit, No LAD, Without JVD or thyroid abnormality Respiratory: Diminished Cardiovascular: Regular rate/rhythm, Normal S1 S2, No murmurs Gastrointestinal: Normal bowel sounds, Soft and benign, Non-distended, No tenderness Musculoskeletal: No clubbing, No swelling, No tenderness Integumentary: No rashes Neurological: Normal gait, Normal speech, Normal strength at 5/5 x4 extr, Normal tone, Sensation intact, Cranial nerves 3-12 intact, Normal affect Lymphatics: No axilla or inguinal lymphadenopathy - Studies Laboratory Data (last 24 hrs) 11/07/23 11/07/23 11/07/23 10:32 10:32 10:32 WBC 7.10 Hgb 12.3 Hct 36.7 Plt Count 168 PT 12.9 H INR 1.18 APTT 31.3 Sodium 136 Potassium 3.5 BUN 9 Creatinine 0.68 Glucose 138 H Total Bilirubin 0.8 AST 15 ALT 16 Alkaline Phosphatase 93 Microbiology Data (last 24 hrs): 11/07/23 10:55 Nasopharnyx Influenza Type A Antigen Screen - Final 11/07/23 10:55 Nasopharnyx Influenza Type B Antigen Screen - Final Assessment & Plan - Problems (Diagnosis) (1) AMS (altered mental status) Current Visit: Yes Status: Acute (2) Weakness Current Visit: Yes Status: Acute (3) Chest pain Onset Date: 07/30/16 Current Visit: No Status: Acute (4) Diabetes mellitus Onset Date: 07/30/16 Current Visit: No Status: Acute Qualifiers: - Advance Directives Does patient have a Living Will: No Does patient have a Durable POA for Healthcare: No
[2023-11-07 14:05] VITALS: BP 140/80; TEMP 98
[2023-11-07] MEDS ORDERED: ONDANSETRON 4 MG/2 ML VIAL ONE (14:12)
[2023-11-07] MEDS ORDERED: MORPHINE 2 MG/ML SYR ONE (14:12)
[2023-11-07 14:17] VITALS: BMI 26.2
--- NOTE | 2023-11-07 14:26 | RAD REPORT ---
EXAM DESCRIPTION: RAD - Femur Right - 11/07/2023 2:16 pm CLINICAL HISTORY: Leg pain FINDINGS: No fracture is seen.
[2023-11-07 18:03] VITALS: O2SAT 99
--- NOTE | 2023-11-08 13:44 | EKG ---
Test Date: 2023-11-07 Test Time: 10:49:57 Television Anchor: BELINDA MEASUREMENT RESULTS: Intervals: Rate: 97 AL: 148 QRSD: 84 QT: 362 QTc: 459 Quinter: P: 65 AL: 148 QRS: 2 T: 45 INTERPRETIVE STATEMENTS: Normal sinus rhythm ST abnormality, possible digitalis effect Abnormal ECG Compared to ECG 09/15/2017 17:30:34 ST (T wave) deviation now present Left ventricular hypertrophy no longer present Electronically Signed On 11-08-23 13:40:17 [employer]ING [employer] LEAD[employer] by Gabriel Linares
== END 2023-11-07 17:59 | disposition short-term general hospital (02) | DRG 195 ==
LOC: ER 10:08 → ERHOLD 13:55
PROVIDERS: ADMIT Hospitalist; ATTEND Hospitalist
DX: J10.1 Influenza due to other identified influenza virus with other respiratory manifestations (principal); I10 Essential (primary) hypertension; E11.9 Type 2 diabetes mellitus without complications; E78.00 Pure hypercholesterolemia, unspecified; Z11.52 Encounter for screening for COVID-19; Z79.84 Long term (current) use of oral hypoglycemic drugs; Z79.82 Long term (current) use of aspirin; Z90.49 Acquired absence of other specified parts of digestive tract; Z79.899 Other long term (current) drug therapy; Z87.891 Personal history of nicotine dependence
CPT/HCPCS: 36415; 70450; 71045; 71260; 72125; 74177; 80053; 81001; 83605; 85025; 85610; 85730; 87040; 87804; 87811; 93005; J2270; J2405; J7040; Q9967

== ENCOUNTER 2025-07-01 12:12 | Inpatient (IN) | payer OTHER ==
[2025-07-01] MEDS ORDERED: NA CHLORIDE 0.9% 1,000 ML ONE (12:36)
--- OUTSIDE RECORDS SUMMARY | 2025-07-01 12:46 | XMS REPORT | Continuity of Care Document ---
Author Name Unknown Address [address] [place] [address] [facility] Address 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 Name Role Phone Pcp, Patient Does Not Have A Primary Care Physic polly Aston Andrade Attending Clinician Unavailable Doctor Unassigned, Donnellson Attending Clinician U Juan Rosales MD Attending Clinician [phone] JUAN LOVE Attending Clinician Unavailable Evelyn Santo Attending Clinician [phone] Saray Borja Attending Clinician [phone] SARAY VISNON Attending Clinician Unavailable 2, [facility] Attending Clinician Unavailable Jaspreet Monroy MD Attending Clinician [phone] NERET Attending Clinician Unavailable NERET Admitting Clinician Unavailable Payers Payer Name Policy Type Policy Number Effective Date Expirati on Date Source [facility] Dual Complete Choice (Regional PPO D-SNP) [id number] [facility] Advantage PPO 53 [id number] [facility] [place] [id number] 2008 00:00:00 [place] BENEFIC[place]ARY [place]) [id number] Problems Condition Name Condition Details Condition Category Status Onset Date Resolution Date Last Treatment Date Treating Clinician Comments Source MARIAM F/U MARIAM F/U Active 01/30/2016 [facility] Diagnosis Active 01-29 00:00: 00 2016-04-28 14:04:00 Yeison Marmolejo F/U F/U Active 08/06/2015 [facility] Diagnosis Active 08-06 00:00: 00 2016-03-07 16:40:00 Yeison Marmolejo POST D/C FU POST D/C FU Active 05/07/2014 [facility] Diagnosis Active 05-07 00:00: 00 2014-08-14 14:34:00 Yeison Marmolejo BILATERAL BILATERAL Active 02/04/2014 [facility] Diagnosis Active 02-04 00:00: 00 2014-02-04 18:39:00 Yeison Marmolejo WEAKNESS WEAKNESS Active 02/04/2014 [facility] Diagnosis Active 02-04 00:00: 00 2014-02-12 14:23:00 Yeison Marmolejo Encounter for routine gynecologi iliana examinatio n Encounter for routine gynecologi iliana examinatio n Disease Active 07-16 00:00: 00 Overview: Formattin g of this note might be different from the original. Medical records:B HS. Digital mammogram . Impressio n: BI-RADS, category 2 benign. Routine annual mammogram . ICD10 Diagnosis Term Viscosity Tester Utility [facility] Type 2 diabetes mellitus without complicati ons Type 2 diabetes mellitus without complicati ons Disease Active 07-16 00:00: 00 Overview: Formattin g of this note might be different from the original. ICD10 Diagnosis Term Viscosity Tester Utility [facility] Essential hypertensi on Essential hypertensi on Disease Active 07-16 00:00: 00 Overview: Formattin g of this note might be different from the original. ICD10 Diagnosis Term Viscosity Tester Utility 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) Active Problem 05/01/2016 [facility] Problem Active 2016-05-01 00:07:23 Yeison Marmolejo Hypertensi ve disorder, systemic arterial (disorder) Hypertensi ve disorder, systemic arterial (disorder) Active Problem 05/01/2016 [facility] Problem Active 2016-05-01 00:07:23 Yeison Marmolejo Neurogenic bladder (finding) Neurogenic bladder (finding) Active Problem 05/01/2016 [facility] Problem Active 2016-05-01 00:07:23 Yeison Marmolejo Neuropathi c pain (finding) Neuropathi c pain (finding) Active Problem 05/01/2016 [facility] Problem Active 2016-05-01 00:07:23 Yeison Marmolejo Peripheral demyelinat ing neuropathy (disorder) Peripheral demyelinat ing neuropathy (disorder) Active Problem 05/01/2016 [facility] Problem Active 2016-05-01 00:07:23 Yeison Marmolejo Dizziness and giddiness (finding) Dizziness and giddiness (finding) Active Problem 05/01/2016 [facility] Problem Active 2016-05-01 00:07:23 Yeison Marmolejo Obesity (disorder) Obesity (disorder) Active Problem 05/01/2016 [facility] Problem Active 2016-05-01 00:07:23 Yeison Marmolejo MALAISE AND FATIGUE NEC MALAISE AND FATIGUE NEC Active [facility] Diagnosis Active 2014-02-08 15:42:00 Yeison Marmolejo FOLLOW-UP EXAM NOS FOLLOW-UP EXAM NOS Active [facility] Diagnosis Active 2015-08-06 15:14:00 Yeison Marmolejo BRAIN INJURY NEC BRAIN INJURY NEC Active [facility] Diagnosis Active 2015-08-06 15:14:00 Yeison Marmolejo LT EFF INTRACRANI AL INJ LT EFF INTRACRANI AL INJ Active [facility] Diagnosis Active 2015-06-28 16:21:00 Yeison Marmolejo INTCRAN INJ W/O LOSS OF CONSCIOUSN ESS, I INTCRAN INJ W/O LOSS OF CONSCIOUSN ESS, I Active [facility] Diagnosis Active 2016-04-28 14:04:00 Yeison Marmolejo Neurogenic bowel (disorder) Neurogenic bowel (disorder) Resolved Problem 05/01/2016 [facility] Problem Resolve d 2016-05-01 00:07:23 Memced Marmolejo [id number] Pain, joint, knee, left Problem Active [facility] [id number] Bilateral primary osteoarthr itis of knee Problem Active [facility] [id number] Carpal tunnel syndrome of left wrist Problem Active [facility] [id number] Right sciatic nerve pain Problem Active [facility] [id number] Primary osteoarthr itis of right knee Problem Active [facility] [id number] Primary osteoarthr itis of left knee Problem Active [facility] [id number] 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 Social History Social Habit Start Date Stop Date Quantity Comments Source History of Tobacco Use [facility] Sex Assigned At [facility] Exposure to SARS-CoV-2 (event) Not sure [facility] Gender identity [facility] Sexual orientation U [facility] Tobacco use and exposure 2021-01-28 00:00:00 2021-01-28 00:00:00 Never used [facility] Alcohol intake 2021-01-28 00:00:00 2021-01-28 00:00:00 Current non-drinker of alcohol (finding) [facility] History of Social function 2020-12-31 00:00:00 2020-12-31 00:00:00 [facility] Smoking Status Start Date Stop Date Source Social History [facility] Medications Ordered Medication Name Filled Medication Name Start Date Stop Date Current Medication? Ordering Clinician Indication Dosage Frequency Signature (SIG) Comments Components Source Voltaren 1 % Voltaren 1 % 06-11 00:00: 00 No QID Voltaren 1 % Meloxicam 7.5 MG Meloxicam 7.5 MG 06-11 00:00: 00 No 1{table t} QD Meloxicam 7.5 MG predniSONE 10 MG predniSONE 10 MG 06-11 00:00: 00 No 1{table t_with_ food_or _milk} QD predniSONE 10 MG NaCl 0.9% (NS) IV infusion 250 mL 2022-11 18:15: 00 Yes 250mL at 20 mL/hr, IV Infusion, CONTINUOUS , Starting on Tue09/23/23 at 1315, Until Discontinu ed, Routine
To keep vein open
[facility] sulfur hexafluorid e microsphr (LUMASON) injection 5 mL 2022-11 18:00: 00 09-23 15:00 :00 No 5mL 5 mL, Slow IV Push, ONCE, 1 dose, On Tue09/23/23 at 1300, Routine
anthropology faculty member approving Restricted medication : XOCHILT RODRIGUEZ [facility] DOBUTamine (DOBUTREX) 250 mg/250 mL RTU infusion 2022-11 17:01: 11 Yes 5ug/kg/ min 5 mcg/kg/min ?77.6 kg (23.28 mL/hr), IV Infusion, TITRATE, MAP Goal > or = 65 mmHg, Titrate per admin instructio ns, Starting on Tue09/23/23 at 1201
No te and document the precise time that this is 3. ac complished . Begin the count with the EKG system's DSE applicatio n program. This is time zero.&nbsp ; At 2 minutes and 30 seconds after beginning the initial dosing, acquire parasterna l long axis and parasterna l short axis view at papillary level, apical 4 chamber, 2 chamber and apical long axis view, and BP At the 3 minute interval, simultaneo usly obtain a 12 lead EKG, heart rate and 02 saturation and increase the Dobutamine infusion to 10 mcg/kg/min . At the 5 minutes and 30 second interval, acquire parasterna l long axis and parasterna l short&nbsp ;axis view at papillary level, apical 4 chamber, 2 chamber and apical long axis view and measure BP. At the 6 minute interval, simultaneo usly obtain a 12 lead EKG, heart rate and 02saturati on an d increase the Dobutamine infusion to 20 mcg/kg/min . At the 8 minutes and 30 second interval, acquire parasterna l long axis and parasterna l short&nbsp ;axis view at papillary level, apical 4 chamber, 2 chamber and apical long axis view and measure BP. At the 9 minute interval, simultaneo usly obtain a 12 lead EKG, heart rate and 02 saturation and increase the Dobutamine infusion to 30 mcg/kg/min . (see Adjunctive Therapy)&n bsp; At the 11 minutes and 30 second interval, acquire parasterna l long axis and parasterna l short&nbsp ;axis view at papillary level, apical 4 chamber, 2 chamber and apical long axis view and m easure BP. At the 12 minute interval, simultaneo usly obtain a 12 lead EKG, heart rate and 02 saturation and increase the Dobutamine infusion to 40 mcg/kg/min . (see Adjunctive Therapy&nb sp; At the 14 minutes and 30 second interval, acquire parasterna l long axis and parasterna l short&nbsp ;axis view at papillary level, apical 4 chamber, 2 chamber and apical long axis view and m easure BP. At the 15 minute interval, simultaneo usly obtain a 12 lead EKG, heart rate and 02 saturation and terminate the Dobutamine infusion. (see Adjunctive Therapy)<b r> [facility] losartan-hy drochloroth iazide (HYZAAR) 50-12.5 mg per tablet 2022-11 13:21: 41 Yes 1{tbl} Take 1 tablet by mouth daily. [facility] METFORMIN HCL (METFORMIN ORAL) 2022-11 0-06 13:21: 41 Yes 500mg Take 500 mg by mouth daily. [facility] Hyalgan Hyalgan 2022-0 5-16 00:00: 00 No 2mL [facility] Dose Unknown 2021-0 9-05 00:00: 00 No Dose Unknown 2021-0 9-01 00:00: 00 No 500 Kenalog (Triamcinol one) Kenalog (Triamcinol one) 2021-0 8-01 00:00: 00 No 40mg [facility] &lt 2022-0 8-01 00:00: 00 No 5 &lt 2022-0 6-15 00:00: 00 No &lt 2022-0 6-15 00:00: 00 No &lt 2022-0 6-15 00:00: 00 No &lt 2022-0 6-15 00:00: 00 No &lt 2022-0 6-15 00:00: 00 No Dose Unknown 2022-0 5-02 00:00: 00 No Dose Unknown 2-0 5-02 00:00: 00 No Dose Unknown 2021-0 4-29 00:00: 00 No Dose Unknown 2021-0 4-29 00:00: 00 No Dose Unknown 2021-0 4-07 00:00: 00 No Dose Unknown 2021-0 4-07 00:00: 00 No loratadine 10 mg tablet 2021-0 4-06 00:00: 00 No 1mg fluticasone propionate 50 mcg/actuati on nasal spray,suspe nsion 2021-0 4-06 00:00: 00 No 12mcg/a ctuatio n Dose Unknown 2021-0 4-06 00:00: 00 No Dose Unknown 2-0 3-16 00:00: 00 No Dose Unknown 2021-0 3-16 00:00: 00 No Dose Unknown 2022-0 3-16 00:00: 00 No Dose Unknown 2-0 3-16 00:00: 00 No Dose Unknown 2021-0 3-16 00:00: 00 No Dose Unknown 2021-0 3-16 00:00: 00 No Dose Unknown 3-16 00:00: 00 No Dose Unknown 2020-11 2-14 00:00: 00 No Dose Unknown 2020-11 2-14 00:00: 00 No Dose Unknown 2020-11 2-14 00:00: 00 No Dose Unknown 2020-11 0-27 00:00: 00 No Dose Unknown 9-21 00:00: 00 No Dose Unknown 9- 00:00: 00 No Dose Unknown 9- 00:00: 00 No Dose Unknown 9 00:00: 00 No amoxicillin 500 mg tablet 06-11 00:00: 00 No 1mg Flonase Allergy Relief 50 mcg/actuati on nasal spray,suspe nsion 06-11 00:00: 00 No 1mcg/ac tuation Dose Unknown 06-11 00:00: 00 No lisinopril 5 mg tablet 6- 00:00: 00 No 1mg metformin 1,000 mg tablet 6 00:00: 00 No 1mg atorvastati n 20 mg tablet 6 00:00: 00 No 1mg Myrbetriq 50 mg tablet,exte nded release 3-10 00:00: 00 No 1mg lisinopril 5 mg tablet 3-10 00:00: 00 No 1mg metformin 1,000 mg tablet 3-10 00:00: 00 No 1mg ibuprofen 600 mg tablet 3-10 00:00: 00 No 1mg atorvastati n 20 mg tablet 3-10 00:00: 00 No 1mg mirabegron (MYRBETRIQ) 50 mg tablet 3-03 00:00: 00 Yes [id number] 50mg Take 1 tablet by mouth daily. [facility] mirabegron (MYRBETRIQ) 50 mg tablet 0 2-23 00:00: 00 - 00:00 :00 No [id number] 50mg Take 1 tablet by mouth daily. [facility] cephALEXin (KEFLEX) 500 mg capsule 01-02 00:00: 00 Yes [id number] 500mg Take 1 capsule by mouth 2 (two) times daily. [facility] mirabegron (MYRBETRIQ) 50 mg tablet 12-31 00:00: 00 01-20 00:00 :00 No [id number] 50mg Take 1 tablet by mouth daily. [facility] oxybutynin chloride ER 10 mg tablet,exte nded release 24 hr 12-10 00:00: 00 No 1mg oxybutynin chloride ER 15 mg tablet,exte nded release 24 hr 12-10 00:00: 00 No 1mg ACCU-CHEK SATHYA PLUS TEST STRP strip 2019-11 00:00: [address] [facility] lisinopril 5 mg tablet 2019-11 00:00: 00 No 1mg metformin 1,000 mg tablet 2019-11 00:00: 00 No 1mg oxybutynin chloride ER 10 mg tablet,exte nded release 24 hr 2019-11 00:00: 00 No 1mg atorvastati n 20 mg tablet 2019-11 00:00: 00 No 1mg Celebrex 200 mg capsule 2019-11 00:00: 00 No 1mg Celebrex 200 mg capsule 2019-11 00:00: 00 No 1mg oxybutynin chloride ER 10 mg tablet,exte nded release 24 hr 08-22 00:00: 00 No 1mg lisinopril 5 mg tablet 08-22 00:00: 00 No 1mg metformin 1,000 mg tablet 08-22 00:00: 00 No 1mg atorvastati n 20 mg tablet 08-22 00:00: 00 No 1mg Celebrex 200 mg capsule 08-22 00:00: 00 No 1mg lisinopril 5 mg tablet 05-13 00:00: 00 No 1mg oxybutynin chloride ER 10 mg tablet,exte nded release 24 hr 05-13 00:00: 00 No 1mg meloxicam 7.5 mg tablet 05-13 00:00: 00 No 1mg metformin 1,000 mg tablet 05-13 00:00: 00 No 1mg atorvastati n 20 mg tablet 05-13 00:00: 00 No 1mg naproxen 500 mg tablet 02-12 00:00: 00 No 1mg azithromyci n 250 mg tablet 02-12 00:00: 00 No mg benzonatate 200 mg capsule 02-12 00:00: 00 No 1mg Bromfed DM 2 mg-30 mg-10 mg/5 mL oral syrup 02-12 00:00: 00 No 5mg/5 mL metformin 1,000 mg tablet 01-11 00:00: 00 No 1mg atorvastati n 20 mg tablet 01-11 00:00: 00 No 1mg lisinopril 5 mg tablet 01-11 00:00: 00 No 1mg oxybutynin chloride ER 10 mg tablet,exte nded release 24 hr 01-11 00:00: 00 No 1mg meloxicam 7.5 mg tablet 01-11 00:00: 00 No 1mg Depo Medrol (40mg) Depo Medrol (40mg) 06-04 00:00: 00 No 40mg [facility] Bupivicaine [place] Bupivicaine [place] 06-04 00:00: 00 No 150mg [facility] Metformin hydrochlori de 500 MG Oral Tablet 04-28 20:27: 00 Yes 500 mg = 1 tab, PO, BID-Meals, # 180 tab, 0 Refill(s) Memced Marmolejo azelastine / fluticasone 04-28 20:27: 00 Yes 1 spray, NASAL, BID, 0 Refill(s) Yeison Marmolejo Loratadine 04-28 20:27: 00 Yes 10 mg = 1 tab, PO, Daily, PRN Itching / rash / allergy symptoms, # 14 tab, 0 Refill(s) Yeison Marmolejo meclizine 25 mg oral tablet 08-06 20:16: 00 Yes 25 mg = 1 tab, PO, BID, PRN for dizziness, # 60 tab, 0 Refill(s) [facility] meloxicam 7.5 mg oral tablet 08-06 20:16: 00 Yes 7.5 mg = 1 tab, PO, Daily, # 30 tab, 0 Refill(s) [facility] Jaleel DULoxetine 30 mg oral delayed release capsule 08-06 20:16: 00 Yes 30 mg = 1 cap, PO, Daily, # 30 cap, 0 Refill(s) Yeison Marmolejo Home Medication 2013-11 20:53: 00 Yes Refill(s) 0 Yeison Marmolejo Esomeprazol e 40 MG Enteric Coated Capsule [Nexium] 2013-11 20:52: 00 Yes 40 mg = 1 cap, PO, Daily, # 30 cap, 0 Refill(s) Yeison Marmolejo solifenacin succinate 5 MG Oral Tablet [VESICARE] 08-14 20:05: 00 Yes 5 mg = 1 tab, PO, Daily, # 30 tab, 0 Refill(s) [facility] DULoxetine 60 mg oral delayed release capsule 08-14 20:05: 00 Yes 60 mg = 1 cap, PO, Daily, # 30 cap, 0 Refill(s) [facility] Centrum oral tablet 08-14 20:05: 00 Yes 1 tab, PO, Daily, # 30 tab, 0 Refill(s) Yeison Marmolejo METFORMIN HCL (METFORMIN ORAL) 07-16 20:44: 48 Yes 500mg Take 500 mg by mouth daily. [facility] losartan-hy drochloroth iazide (HYZAAR) 50-12.5 mg per tablet 07-16 19:59: 41 Yes 1{tbl} Take 1 Tab by mouth daily. [facility] METFORMIN HCL (METFORMIN ORAL) 07-16 15:44: 48 Yes 500mg Take 500 mg by mouth daily. [facility] losartan-hy drochloroth iazide (HYZAAR) 50-12.5 mg per tablet 07-16 14:59: 41 Yes 1{tbl} Take 1 Tab by mouth daily. [facility] Pregabalin 100 MG Pregabalin 100 MG No 1{capsu le} TID Pregabalin 100 MG Atorvastati n Calcium 20 MG Atorvastati n Calcium 20 MG No 1{table t} QD Atorvastat in Calcium 20 MG Lisinopril 5 MG Lisinopril 5 MG No 1{table t} QD Lisinopril 5 MG metFORMIN HCl 1000 MG metFORMIN HCl 1000 MG No 1{table t_with_ a_meal} QD metFORMIN HCl 1000 MG Immunizations Ordered Immunization Name Filled Immunization Name Date Status Comments Source Moderna COVID-19 Vaccine 2021-12-30 00:00:00 Completed Moderna COVID-19 Vaccine 2021-04-24 00:00:00 Completed Moderna COVID-19 Vaccine 2021-03-27 00:00:00 Completed TDAP 2013-02-13 00:00:00 Completed [facility] TDAP 2013-02-13 00:00:00 Completed [facility] TDAP 2013-02-13 00:00:00 Completed [facility] TDAP 2013-02-13 00:00:00 Completed [facility] TDAP 2013-02-13 00:00:00 Completed [facility] TDAP 2013-02-13 00:00:00 Completed [facility] TDAP 2013-02-13 00:00:00 Completed [facility] TDAP 2013-02-13 00:00:00 Completed [facility] TDAP 2013-02-13 00:00:00 Completed [facility] TDAP Unknown Completed [facility] Influenza Virus Vaccine,quad Im,preserve Free 65+ (FLUAD) Unknown Completed [facility] TDAP Unknown Completed [facility] TDAP Unknown Completed [facility] Influenza Virus Vaccine,quad Im,preserve Free 65+ (FLUAD) Unknown Completed [facility] TDAP Unknown Completed [facility] Influenza Virus Vaccine,quad Im,preserve Free 65+ (FLUAD) Unknown Completed [facility] TDAP Unknown Completed [facility] Influenza Virus Vaccine,quad Im,preserve Free 65+ (FLUAD) Unknown Completed [facility] TDAP Unknown Completed [facility] Influenza Virus Vaccine,quad Im,preserve Free 65+ (FLUAD) Unknown Completed [facility] TDAP Unknown Completed [facility] Influenza Virus Vaccine,quad Im,preserve Free 65+ (FLUAD) Unknown Completed [facility] TDAP Unknown Completed [facility] Influenza Virus Vaccine,quad Im,preserve Free 65+ (FLUAD) Unknown Completed [facility] Vital Signs Vital Name Observation Time Observation Value Comments S angi height 2025-06-11 14:30:00 66 [in_i] [facility] weight 2025-06-11 14:30:00 168 [lb_av] [facility] on [facility] temperature 2025-06-11 14:30:00 98.4 [degF] Com mon [facility] bmi 2025-06-11 14:30:00 27.11 kg/m2 [facility] blood pressure systolic 2025-06-11 14:30:00 110 mm[Hg] [facility] blood pressure diastolic 2025-06-11 14:30:00 68 mm[Hg] [facility] Systolic blood pressure 2023-09-02 18:28:00 128 mm[Hg] [facility] Diastolic blood pressure 2023-09-02 18:28:00 57 mm[Hg] [facility] Heart rate 2023-09-02 18:28:00 61 /min [facility] Body height 2023-09-02 18:28:00 170.2 cm [facility] Body weight 2023-09-02 18:28:00 77.883 kg [facility] BMI 2023-09-02 18:28:00 26.89 kg/m2 [facility] Oxygen saturation in Arterial blood by Pulse oximetry 2023-09-02 18:28:00 96 /min [facility] height 2023-04-19 09:30:00 66 [in_i] [facility] weight 2023-04-19 09:30:00 168 [lb_av] [facility] temperature 2023-04-19 09:30:00 97.7 [degF] [facility] bmi 2023-04-19 09:30:00 27.11 kg/m2 [facility] blood pressure systolic 2023-04-19 09:30:00 128 mm[Hg] [facility] blood pressure diastolic 2023-04-19 09:30:00 82 mm[Hg] [facility] height 2023-04-12 09:45:00 66 [in_i] [facility] weight 2023-04-12 09:45:00 168 [lb_av] [facility] on [facility] bmi 2023-04-12 09:45:00 27.11 kg/m2 [facility] blood pressure systolic 2023-04-12 09:45:00 130 mm[Hg] [facility] blood pressure diastolic 2023-04-12 09:45:00 84 mm[Hg] [facility] height 2023-04-05 11:00:00 66 [in_i] [facility] weight 2023-04-05 11:00:00 168 [lb_av] [facility] on [facility] temperature 2023-04-05 11:00:00 98.0 [degF] Com [facility] bmi 2023-04-05 11:00:00 27.11 kg/m2 [facility] blood pressure systolic 2023-04-05 11:00:00 130 mm[Hg] [facility] blood pressure diastolic 2023-04-05 11:00:00 84 mm[Hg] [facility] height 2023-03-28 13:00:00 66 [in_i] [facility] weight 2023-03-28 13:00:00 168 [lb_av] [facility] temperature 2023-03-28 13:00:00 97.5 [degF] Com [facility] bmi 2023-03-28 13:00:00 27.11 kg/m2 [facility] blood pressure systolic 2023-03-28 13:00:00 126 mm[Hg] [facility] blood pressure diastolic 2023-03-28 13:00:00 74 mm[Hg] [facility] height 2023-03-10 13:30:00 66 [in_i] [facility] weight 2023-03-10 13:30:00 168 [lb_av] [facility] temperature 2023-03-10 13:30:00 98.1 [degF] Com [facility] bmi 2023-03-10 13:30:00 27.11 kg/m2 [facility] blood pressure systolic 2023-03-10 13:30:00 124 mm[Hg] [facility] blood pressure diastolic 2023-03-10 13:30:00 78 mm[Hg] [facility] height 2022-06-28 09:00:00 66 [in_i] [facility] weight 2022-06-28 09:00:00 174 [lb_av] [facility] temperature 2022-06-28 09:00:00 97.4 [degF] Com [facility] bmi 2022-06-28 09:00:00 28.08 kg/m2 [facility] blood pressure systolic 2022-06-28 09:00:00 126 mm[Hg] [facility] blood pressure diastolic 2022-06-28 09:00:00 72 mm[Hg] [facility] Systolic blood pressure 2021-01-28 15:06:00 130 mm[Hg] [facility] acute hospital Diastolic blood pressure 2021-01-28 15:06:00 70 mm[Hg] [facility] hospital Heart rate 2021-01-28 15:06:00 70 /min [facility] Body temperature 2021-01-28 15:06:00 36.22 [place] [facility] Respiratory rate 2021-01-28 15:06:00 18 /min [facility] Body height 2021-01-28 15:06:00 170.2 cm [facility] Body weight 2021-01-28 15:06:00 76.476 kg [facility] BMI 2021-01-28 15:06:00 26.41 kg/m2 [facility] Systolic blood pressure 2020-12-31 15:06:00 118 mm[Hg] [facility] hospital Diastolic blood pressure 2020-12-31 15:06:00 63 mm[Hg] [facility] hospital Heart rate 2020-12-31 15:06:00 73 /min [facility] Body temperature 2020-12-31 15:06:00 36.28 [place] [facility] Respiratory rate 2020-12-31 15:06:00 18 /min [facility] Body height 2020-12-31 15:06:00 170.2 cm [facility] Body weight 2020-12-31 15:06:00 77.293 kg [facility] BMI 2020-12-31 15:06:00 26.69 kg/m2 [facility] BP Systolic 2022-08-02 08:36:00 136 mm[Hg] BP Diastolic 2022-08-02 08:36:00 72 mm[Hg] Weight Measured 2022-08-02 08:36:00 172.20 pounds Height Measured 2022-08-02 08:36:00 67.30 inches Body Temperature 2022-08-02 08:36:00 98.40 degrees Heart Rate 2022-08-02 08:36:00 54.00 /min Respiratory Rate 2022-08-02 08:36:00 18.00 /min BP Systolic 2022-05-12 11:33:00 113 mm[Hg] BP Diastolic 2022-05-12 11:33:00 69 mm[Hg] Weight Measured 2022-05-12 11:33:00 181.00 pounds Height Measured 2022-05-12 11:33:00 67.30 inches Body Temperature 2022-05-12 11:33:00 98.30 degrees Heart Rate 2022-05-12 11:33:00 74.00 /min Respiratory Rate 2022-05-12 11:33:00 16.00 /min BP Systolic 2022-03-03 15:30:00 144 mm[Hg] BP Diastolic 2022-03-03 15:30:00 77 mm[Hg] Weight Measured 2022-03-03 15:30:00 177.80 pounds Height Measured 2022-03-03 15:30:00 67.30 inches Body Temperature 2022-03-03 15:30:00 98.10 degrees Heart Rate 2022-03-03 15:30:00 84.00 /min Respiratory Rate 2022-03-03 15:30:00 16.00 /min BP Systolic 2022-02-22 09:10:00 123 mm[Hg] BP Diastolic 2022-02-22 09:10:00 71 mm[Hg] Weight Measured 2022-02-22 09:10:00 177.20 pounds Height Measured 2022-02-22 09:10:00 67.30 inches Body Temperature 2022-02-22 09:10:00 98.20 degrees Heart Rate 2022-02-22 09:10:00 69.00 /min Respiratory Rate 2022-02-22 09:10:00 21.00 /min BP Systolic 2022-02-10 10:44:00 117 mm[Hg] BP Diastolic 2022-02-10 10:44:00 70 mm[Hg] Weight Measured 2022-02-10 10:44:00 173.60 pounds Height Measured 2022-02-10 10:44:00 67.30 inches Body Temperature 2022-02-10 10:44:00 98.20 degrees Heart Rate 2022-02-10 10:44:00 70.00 /min Respiratory Rate 2022-02-10 10:44:00 21.00 /min BP Systolic 2021-11-10 11:50:00 113 mm[Hg] BP Diastolic 2021-11-10 11:50:00 61 mm[Hg] Weight Measured 2021-11-10 11:50:00 177.60 pounds Height Measured 2021-11-10 11:50:00 67.30 inches Body Temperature 2021-11-10 11:50:00 98.30 degrees Heart Rate 2021-11-10 11:50:00 73.00 /min Respiratory Rate 2021-11-10 11:50:00 21.00 /min BP Systolic 2021-09-23 08:53:00 134 mm[Hg] BP Diastolic 2021-09-23 08:53:00 78 mm[Hg] Weight Measured 2021-09-23 08:53:00 172.00 pounds Height Measured 2021-09-23 08:53:00 67.30 inches Body Temperature 2021-09-23 08:53:00 98.20 degrees Heart Rate 2021-09-23 08:53:00 63.00 /min Respiratory Rate 2021-09-23 08:53:00 16.00 /min BP Systolic 2021-08-18 10:57:00 128 mm[Hg] BP Diastolic 2021-08-18 10:57:00 72 mm[Hg] Weight Measured 2021-08-18 10:57:00 172.00 pounds Height Measured 2021-08-18 10:57:00 67.30 inches Body Temperature 2021-08-18 10:57:00 98.20 degrees Heart Rate 2021-08-18 10:57:00 64.00 /min Respiratory Rate 2021-08-18 10:57:00 17.00 /min BP Systolic 2021-05-25 08:00:00 128 mm[Hg] BP Diastolic 2021-05-25 08:00:00 72 mm[Hg] Weight Measured 2021-05-25 08:00:00 168.20 pounds Height Measured 2021-05-25 08:00:00 67.30 inches Body Temperature 2021-05-25 08:00:00 98.50 degrees Heart Rate 2021-05-25 08:00:00 64.00 /min Respiratory Rate 2021-05-25 08:00:00 17.00 /min BP Systolic 2021-03-04 16:16:00 123 mm[Hg] BP Diastolic 2021-03-04 16:16:00 70 mm[Hg] Weight Measured 2021-03-04 16:16:00 170.40 pounds Height Measured 2021-03-04 16:16:00 67.30 inches Body Temperature 2021-03-04 16:16:00 98.30 degrees Heart Rate 2021-03-04 16:16:00 71.00 /min Respiratory Rate 2021-03-04 16:16:00 17.00 /min Heart Rate 2016-04-28 20:13:00 [facility] Weight 2016-04-28 20:13:00 [facility] Height 2016-04-28 20:13:00 167.64 cm [facility] BMI Calculated 2016-04-28 20:13:00 [facility] Rate 2016-04-28 20:13:00 [facility] Systolic (mm Hg) 2016-04-28 20:13:00 [facility] Diastolic (mm Hg) 2016-04-28 20:13:00 [facility] Height 2015-08-06 20:12:00 167.64 cm [facility] Weight 2015-08-06 20:12:00 [facility] BMI Calculated 2015-08-06 20:12:00 [facility] Systolic (mm Hg) 2015-08-06 20:12:00 [facility] Diastolic (mm Hg) 2015-08-06 20:12:00 [facility] Respitory Rate 2015-08-06 20:12:00 [facility] Heart Rate 2015-08-06 20:12:00 [facility] Height 2014-11-27 20:47:00 167.64 cm [facility] Weight 2014-11-27 20:47:00 [facility] BMI Calculated 2014-11-27 20:47:00 [facility] Diastolic (mm Hg) 2014-11-27 20:47:00 [facility] Respitory Rate 2014-11-27 20:47:00 [facility] Systolic (mm Hg) 2014-11-27 20:47:00 [facility] Heart Rate 2014-11-27 20:47:00 [facility] Systolic (mm Hg) 2014-08-14 19:55:00 [facility] Respitory Rate 2014-08-14 19:55:00 [facility] Heart Rate 2014-08-14 19:55:00 [facility] Weight 2014-08-14 19:55:00 [facility] BMI Calculated 2014-08-14 [facility]:55[facility] Height 2014-08-14 19:55:00 167.64 cm [facility] Diastolic (mm Hg) 2014-08-14 19:55:00 [facility] Procedure Date / Time Performed Performing Clinician Source AUTHORIZATION FOR RELEASE OF PHI 2023-10-06 06:01:00 Doctor Unassigned, Donnellson [facility] COMPLETE ECHOCARDIOGRAM DOBUTAMINE STRESS TEST W CONTRAST 2023-09-23 17:32:19 [facility] RHYTHM STRIP 2023-09-02 [facility]:25[facility]65+YR,0.5 ML,IM,ADJUVANTED,QUAD(FLUA D) 2023-09-02 18:10:14 [facility] FOR [facility]AGNOSIS AND TREATMENT 2023-09-02 17:46:44 Doctor Unassigned, Donnellson [facility] REFERRAL- REQUEST/RESPONSE 2023-07-14 05:01:00 D octor Unassigned, Donnellson [facility] REFERRAL- REQUEST/RESPONSE 2021-06-09 05:01:00 D octor Unassigned, Donnellson [facility] POCT URINALYSIS AUTO 2021-01-28 15:04:00 Saray Vinson [facility] POCT URINALYSIS AUTO 2020-12-31 15:12:00 Saray Vinson [facility] ASSIGNMENT OF BENEFITS 2020-12-31 14:25:54 Docto r Unassigned, Donnellson [facility] Appendectomy [facility] Bunionectomy [facility] Cholecystectomy [facility] rivera Procedure on back [facility] Plan of Care Planned Activity Planned Date Details Comments Source Goal Plan of Care Note [code = 28206-4] Goal Plan of Care Note [code = 50657-9] Goal Plan of Care Note [code = 23681-9] Goal Plan of Care Note [code = 27587-3] Goal Plan of Care Note [code = 23108-6] Goal Plan of Care Note [code = 71080-9] Goal Plan of Care Note [code = 71530-1] Goal Plan of Care Note [code = 51765-9] Goal Plan of Care Note [code = 82013-9] Goal Plan of Care Note [code = 14965-6] Goal Plan of Care Note [code = 85793-5] Goal Plan of Care Note [code = 41315-0] Goal Plan of Care Note [code = 58192-1] Goal Plan of Care Note [code = 82449-3] Goal Plan of Care Note [code = 83198-1] Goal Plan of Care Note [code = 59368-8] Goal Plan of Care Note [code = 01138-8] Goal Plan of Care Note [code = 76769-8] Goal Plan of Care Note [code = 19014-4] Goal Plan of Care Note [code = 31604-8] Goal Plan of Care Note [code = 86706-8] Goal Plan of Care Note [code = 46279-5] Goal Plan of Care Note [code = 86310-0] Goal Plan of Care Note [code = 32013-5] Goal Plan of Care Note [code = 26657-7] Goal Plan of Care Note [code = 73737-6] Goal Plan of Care Note [code = 11548-3] Goal Plan of Care Note [code = 46297-4] Goal Plan of Care Note [code = 55334-2] Goal Plan of Care Note [code = 54368-6] Goal Plan of Care Note [code = 07983-1] Encounters Start Date/Time End Date/Time Encounter Type Admission Type Attending [facility] Care Facility Care Department Encounter ID Source 2023-03-10 14:16:00 Outpatient AndradeJigna sonh [facility] [id number] [facility] 2022-06-30 10:10:00 Outpatient AndradeJignah [facility] [id number] [facility] 2022-06-28 09:01:00 Outpatient [facility] [id number] [facility] 2022-06-23 08:46:00 Outpatient Andrade, [facility] [id number] [facility] 2022-05-27 08:26:00 Outpatient Andrade, Aston [facility] [id number] [facility] 2021-12-23 11:31:03 Outpatient Andrade[facility] [id number] [facility] 2021-12-23 11:28:46 Outpatient Andrade, Aston [facility] [id number] [facility] 2025-06-11 00:00:00 2025-06-11 00:00:00 OFFICE VISIT ESTAB PT LEVEL 4 [facility] [id number] [facility] 2024-03-21 09:41:40 2024-03-21 09:41:40 Outpatient S[facility] [id number] Dante Lira 2024-02-21 13:25:02 2024-02-21 13:25:02 Outpatient [facility] [id number] Dante Gonzalez [place] 2023-12-28 08:06:51 2023-12-28 08:06:51 Outpatient [facility] [id number] Dante Lira 2023-12-01 11:49:59 2023-12-01 11:49:59 Outpatient [facility] [id number] Dante Lira 2023-10-11 13:54:47 2023-10-11 13:54:47 Outpatient SFA [facility] [id number] Dante Lira 2023-10-06 00:00:00 2023-10-06 00:00:00 Orders Only Doctor Unassigned, Donnellson [facility] ..840.114 350.1.13.10 4.2.7.2.[id number] [facility] 2023-10-05 00:00:00 2023-10-05 00:00:00 Telephone Juan Love [facility] 1..840.114 350.1.13.10 4.2.7.2.[id number] [facility] 2023-09-26 00:00:00 2023-09-26 00:00:00 [facility] 1.2.840.114 350.1.13.10 4.2.7.2.[id number] [facility] 2023-09-23 10:54:10 2023-09-23 23:59:00 [facility] 1.2.840.114 350.1.13.10 4.2.7.2.[id number] [facility] 2023-09-23 08:59:40 2023-09-23 10:53:00 [facility] [id number] [facility] 2023-09-23 08:59:40 2023-09-23 10:53:00 [facility] 1.2.840.114 350.1.13.10 4.2.7.2.[id number] [facility] 2023-09-22 00:00:00 2023-09-22 00:00:00 [facility] 1.2.840.114 350.1.13.10 4.2.7.2.[id number] [facility] 2023-09-02 13:20:00 2023-09-02 13:51:33 [facility] [id number] [facility] 2023-09-02 13:20:00 2023-09-02 13:51:33 [facility] 1.2.840.114 350.1.13.10 4.2.7.2.[id number] [facility] 2023-09-02 00:00:00 2023-09-02 00:00:00 Orders Only Doctor Unassigned, Donnellson [facility] 1.2.840.114 350.1.13.10 4.2.7.2.[id number] [facility] 2023-07-20 14:52:41 2023-07-20 14:52:41 Outpatient [facility] [id number] Dante Gonzalez [place] 2023-07-15 15:35:13 2023-07-15 15:35:13 Outpatient SFA [facility] [id number] Dante Gonzalez [place] 2023-07-14 00:00:00 2023-07-14 00:00:00 Orders Only Doctor Unassigned, Donnellson [facility] 1.2.840.114 350.1.13.10 4.2.7.2.[id number] [facility] 2023-07-13 16:45:29 2023-07-13 16:45:29 Outpatient SFA [facility] [id number] Dante Gonzalez [place] 2023-05-02 13:31:08 2023-05-02 13:31:08 Outpatient [facility]FA [facility] [id number] Dante Gonzalez [place] 2023-04-19 10:31:43 2023-04-19 10:31:43 Outpatient [facility]FA [facility] [id number] Dante Gonzalez [place] 2023-04-19 00:00:00 2023-04-19 00:00:00 (IN/ASP) INJ ASP [facility] [id number] [facility] 2023-04-12 00:00:00 2023-04-12 00:00:00 (IN/ASP) INJ ASP [facility]LMLC [facility] [id number] [facility] 2023-04-07 10:42:53 2023-04-07 10:42:53 Outpatient SFA [facility] [id number] Dante Lira 2023-04-05 00:00:00 2023-04-05 00:00:00 (IN/ASP) INJ ASP [facility]LMLC [facility] [id number] [facility] 2023-03-28 00:00:00 2023-03-28 00:00:00 OFFICE VISIT ESTAB PT LEVEL 4 [facility] [id number] [facility] 2023-03-10 00:00:00 2023-03-10 00:00:00 (TEL) STLMLC ST[facility] [id number] [facility] 2023-03-10 00:00:00 2023-03-10 00:00:00 OFFICE VISIT ESTAB PT LEVEL 4 [facility] [id number] [facility] 2023-02-16 16:59:48 2023-02-16 16:59:48 Outpatient [facility] [id number] Dante Lira 2022-11-30 17:29:36 2022-11-30 17:29:36 Outpatient [facility] [id number] Dante Lira 2022-08-02 00:00:00 2022-08-02 00:00:00 Outpatient Visit [id number] 2022-06-28 00:00:00 2022-06-28 00:00:00 (TEL) STLMLC STLMLC [id number] [facility] 2022-06-28 00:00:00 2022-06-28 00:00:00 OFFICE VISIT ESTAB PT LEVEL 4 [facility] [id number] [facility] 2021-06-24 00:00:00 2021-06-24 00:00:00 Letter (Out) Evelyn Isaac [facility] 1.2.840.114 350.1.13.10 4.2.7.2.[id number] [facility] 2021-06-09 00:00:00 2021-06-09 00:00:00 Orders Only Doctor Unassigned, Donnellson [facility] 1.2.840.114 350.1.13.10 4.2.7.2.[id number] [facility] 2021-01-28 08:42:38 2021-01-28 09:23:08 Office Visit Saray Vinson [facility] 1.2.840.114 350.1.13.10 4.2.7.2.[id number] [facility] 2021-01-28 09:00:00 2021-01-28 09:00:00 Outpatient R SARAY VINSON [facility] [id number] [facility] 2021-01-20 13:00:00 2021-01-20 13:00:00 Outpatient R SARAY VINSON [facility] [id number] [facility] 2021-01-20 09:23:33 2021-01-20 09:38:33 Care Giver Visit 2, Adc Lab Saray Vinson [facility] 1.2.840.114 350.1.13.10 4.2.7.2.[id number] [facility] 2021-01-20 00:00:00 2021-01-20 00:00:00 Refill Jaspreet Monroy [facility] 1.2.840.114 350.1.13.10 4.2.7.2.[id number] [facility] 2021-01-02 00:00:00 2021-01-02 00:00:00 Telephone Saray Vinson [facility] 1.2.840.114 350.1.13.10 4.2.7.2.[id number] [facility] 2020-12-31 08:26:16 2020-12-31 09:31:42 Office Visit Saray Vinson [facility] 1.2.840.114 350.1.13.10 4.2.7.2.[id number] [facility] 2020-12-31 09:00:00 2020-12-31 09:00:00 Outpatient R SARAY VINSON [facility] [id number] [facility] 2020-12-31 00:00:00 2020-12-31 00:00:00 Orders Only Doctor Unassigned, Donnellson [facility] 1.2.840.114 350.1.13.10 4.2.7.2.[id number] [facility] 2020-08-13 08:05:00 2020-08-13 08:05:00 Outpatient [facility] [id number] [facility] 2020-07-17 09:30:00 2020-07-17 09:30:00 [facility] [id number] [facility] 2020-06-16 11:52:00 2020-06-16 11:52:00 Outpatient [facility] [id number] [facility] 2020-06-05 09:30:00 2020-06-05 09:30:00 Outpatient [facility] [id number] [facility] 2016-04-28 18:54:00 2016-04-29 04:59:00 Outpatient nullFlavo r [facility] [id number] Yeison Marmolejo 2015-08-06 20:05:00 2015-08-07 04:59:00 Outpatient nullFlavo r [facility] [id number] Yeison M[facility] 2014-11-27 20:00:00 2014-11-28 05:59:00 Outpatient elianaFlavo kaylynn Patel [facility] [id number] Yeison [facility] 2014-08-14 19:00:00 2014-08-15 04:59:00 Outpatient elianaFlavo r Amanda Jaleel [facility] [id number] Yeison [facility] Results Test Description Test Time Test Comments Results Result Co mments Source LIPID [id number] 05:41:01* Test Item Value Reference Range Interpretation Comme nts CHOLESTEROL (test code = 2210) 115 MG/DL <200 TRIGLYCERIDES (test code = 2232) 136 MG/DL <150 HDL CHOLESTEROL (test code = 2220) 52 MG/DL >39 CALC LDL CHOL (test code = 2237) 41 MG/DL <100 NOTE: CALCULATED LDL IS BASED ON YASMEEN-LOU METHOD WHICHINCLUDES ADJUSTABLE TRIGLYCERIDE:VLDL CHOLESTEROL RATIO.THIS FACTOR VARIES BY MEASURED TRIGLYCERIDE AND NON-HDLCHOLESTEROL CONCENTRATIONS WITH INCREASED CALCULATED LDL SEENIN HIGHER TRIGLYCERIDE OR LOWER NON-HDL SPECIMENS. FOR MOREINFORMATION, SEE CLIENT ANNOUNCEMENT AT [email or web address] /[email or web address] RISK RATIO LDL/HDL (test code = 2238) 0.79 RATIO <3.22 UNLESS OTHERW ISE INDICATED, ALL TESTING PERFORMED AT [facility] [address] [place] [address] MANAGER OF INTERNAL: KEATON RAM M.D. CLIA NUMBER [id number] [facility] [place]. [id number] CBC W/AUTO DIFF WITH [id number] 02:55:28* Test Item Value Reference Range Interpretation Comme nts WBC (test code = 1001) 5.0 K/UL 3.5-11.0 RBC (test code = 1002) 4.25 M/UL 3.80-5.40 HEMOGLOBIN (test code = 1003) 12.3 G/DL 11.5-15.5 HEMATOCRIT (test code = 1004) 38.1 % 34.0-45.0 MCV (test code = 1005) 89.6 fL 80.0-99.0 MCH (test code = 1006) 28.9 PG 25.0-33.0 MCHC (test code = 1007) 32.3 G/DL 31.0-36.0 RDW (test code = 1038) 13.3 % 11.5-15.0 NEUTROPHILS (test code = 1008) 52.2 % LYMPHOCYTES (test code = 1010) 34.8 % MONOCYTES (test code = 1011) 8.2 % EOSINOPHILS (test code = 1012) 3.6 % BASOPHILS (test code = 1013) 0.6 % IMMATURE GRANULOCYTES (test code = 1036) 0.6 % NUCLEATED RBCS (test code = 1065) 0.0 /100 WBC'S See_Comment [Automated messa ge] The system which generated this result transmitted reference range: 0.0. The reference range was not used to interpret this result as normal/abnormal. PLATELET COUNT (test code = 1015) 209 K/UL 130-400 ABSOLUTE NEUTROPHILS (test code = 1066) 2.63 K/UL 1.50-7.50 ABSOLUTE LYMPHOCYTES (test code = 1067) 1.75 K/UL 1.00-4.00 ABSOLUTE MONOCYTES (test code = 1068) 0.41 K/UL 0.20-1.00 ABSOLUTE EOSINOPHILS (test code = 1040) 0.18 K/UL 0.00-0.50 ABSOLUTE BASOPHILS (test code = 1069) 0.03 K/UL 0.00-0.20 ABS IMMATURE GRANULOCYTES (test code = 1020) 0.03 K/UL 0.00-0.10 ABS NUCLEATED RBCS (test code = 38607) 0.00 K/UL 0.00-0.11 ALBUMIN/CREATININE RATIO, URINE, [id number] 06:41:36* Test Item Value Reference Range Interpretation Comme nts CREATININE, URINE, CONC. (test code = 2072) 35.1 MG/DL NOT ESTAB ALBUMIN, URINE, RANDOM (test code = 42153) <0.2 MG/DL NOT ESTAB CALC ALBUMIN/CREAT, RND (test code = 18569) <6 MG/G <30 Note: Albumin/Cr eatinine ratio reference interval reflects ADA and NKF guidelines. UNLESS OTHERWISE INDICATED, ALL TESTING PERFORMED AT [facility] [address] [place] [address] MANAGER OF INTERNAL: KEATON RAM M.D. CLIA NUMBER [id number] [place] [id number] HEMOGLOBIN [id number] 03:24:25* Test Item Value Reference Range Interpretation Comme nts HEMOGLOBIN A1c (test code = 70305) 6.2 % 4.2-5.6 H [employer] GUIDELINES FOR HGB A1C: PREDIABETES/INCREASED RISK . . . . . . . 5.7-6.4% DIAGNOSIS OF DIABETES . . . . . . . . . >=6.5% WITH CONFIRMATION OR APPROPRIATE SYMPTOMS NOTE: ASSAY MAY BE AFFECTED BY HEMOGLOBINOPATHIES (SICKLE CELL ANEMIA, S-C DISEASE, OTHERS) OR ARTIFICIALLY LOWERED BY DECREASED RED CELL SURVIVAL (HEMOLYTIC ANEMIAS, BLOOD LOSS, ETC.). CONSIDER ALTERNATE TESTING OR LABORATORY CONSULTATION. Echocardiogram dobutamine stress [id number] 17:58:51* Test Item Value Reference Range Interpretation Comme nts Height (test code = 1406090357) 67 in Weight (test code = 9874557624) 171 lbs Systolic BP (test code = 9468042573) 127 mmHg Diastolic BP (test code = 8031706251) 64 mmHg Heart Rate (test code = 5994580921) 54 bpm BSA (test code = 8023377345) 1.[address] Depresion (mm) (test code = 6741456498) 0 mm Radiology Study observation (narrative) (test code = 58708-7) FLORENTINO (test code = FLORENTINO) Table formatting from the original result was not included. ?Post-stress?Impression: Adequate hemodynamic response, adequate chronotropic response and negative stress echocardiography study for inducible ischemia. ?Post-stress: The post-stress echo shows appropriate increased thickness to all myocardial segments, increased ejection fraction 70-75 and no wall motion abnormalities noted. ?Stress?ECG: The ECG was negative for ischemia. ?Left?Ventricle: Left ventricle is normal in size and function. Normal wall thickness. Septal motion is normal. . Normal systolic function with a visually estimated EF of 55 - 60%. There is impaired relaxation. I, Xochilt Rodriguez MD was immediately available for ?the entire procedure(s). Stress ResultsProtocol: DSE Maximum Predicted HR: 145 Target HR: 123 % Maximum Predicted HR: 89 Stage Duration (mm:ss) Heart Rate (bpm) BP Dose Comment Baseline ?56 127/64 ?Lumason Peak 9:05 130 170/62 20 0.25 Atropine Recovery 4 4:00 122 154/74 ? ?Recovery 10 10:00 90 148/79 ? ?Add'l Recovery ?Stress Duration: 9:05 Recovery Time: 10:00 Maximum Stress HR: 130 ? Left VentricleLeft ventricle is normal in size and function. Normal wall thickness. Septal motion is normal. . Normal systolic function with a visually estimated EF of 55 - 60%. There is impaired relaxation.Right VentricleRight ventricle is normal in size and function.Left AtriumLeft atrium is mildly dilated.Right AtriumRight atrium size is normal.IVC/SVCRA pressure is 0-5 mmHg.Mitral ValveMildly calcified leaflets. Moderate posterior mitral annular calcification. Mild transvalvular regurgitation.Tricuspid ValveTricuspid valve is grossly normal size and function. Trace transvalvular regurgitation. Right ventricular systolic pressure is 25-30 mmHg. RA pressure is 0-5 mmHg.Aortic ValveAortic valve opens well.Pulmonic ValvePulmonic valve is grossly normal in structure and function. Trace transvalvular regurgitation.Ascending AortaNormal sized aortic root.PericardiumNo pericardial effusion.Study DetailsStudy quality was adequate. A Dobutamine stress echocardiogram was performed using color flow Doppler and spectral Doppler. 5 mL of Lumason ultrasound enhancing agent used. Elissa Montero, RNResting ECGNormal sinus rhythm. Resting ECG shows no ST-segment deviation.Stress FindingsA pharmacological stress test was performed using dobutamine. The patient reported no symptoms during the stress test. Blood pressure demonstrated a normal response and heart rate demonstrated a normal response to stress. The patient's heart rate recovery was normal.Stress ECGSinus tachycardia. No significant ST depression.There were no arrhythmias during stress. There were no arrhythmias during recovery. The ECG was negative for ischemia.Echo Post StressThe post-stress echo shows appropriate increased thickness to all myocardial segments, increased ejection fraction 70-75 and no wall motion abnormalities noted.Study ImpressionAdequate hemodynamic response, adequate chronotropic response and negative stress echocardiography study for inducible ischemia. [facility] W/AUTO DIFF WITH [id number] 16:24:32* Test Item Value Reference Range Interpretation Comme nts WBC (test code = 1001) 7.2 K/UL 3.5-11.0 RBC (test code = 1002) 4.03 M/UL 3.80-5.40 HEMOGLOBIN (test code = 1003) 11.9 G/DL 11.5-15.5 HEMATOCRIT (test code = 1004) 36.6 % 34.0-45.0 MCV (test code = 1005) 90.8 fL 80.0-99.0 MCH (test code = 1006) 29.5 PG 25.0-33.0 MCHC (test code = 1007) 32.5 G/DL 31.0-36.0 RDW (test code = 1038) 13.4 % 11.5-15.0 NEUTROPHILS (test code = 1008) 67.9 % LYMPHOCYTES (test code = 1010) 24.3 % MONOCYTES (test code = 1011) 5.5 % EOSINOPHILS (test code = 1012) 1.6 % BASOPHILS (test code = 1013) 0.4 % IMMATURE GRANULOCYTES (test code = 1036) 0.3 % NUCLEATED RBCS (test code = 1065) 0.0 /100 WBC'S See_Comment [Automated Novavax ABa ge] The system which generated this result transmitted reference range: 0.0. The reference range was not used to interpret this result as normal/abnormal. PLATELET COUNT (test code = 1015) 218 K/UL 130-400 ABSOLUTE NEUTROPHILS (test code = 1066) 4.59 K/UL 1.50-7.50 ABSOLUTE LYMPHOCYTES (test code = 1067) 1.64 K/UL 1.00-4.00 ABSOLUTE MONOCYTES (test code = 1068) 0.37 K/UL 0.20-1.00 ABSOLUTE EOSINOPHILS (test code = 1040) 0.11 K/UL 0.00-0.50 ABSOLUTE BASOPHILS (test code = 1069) 0.03 K/UL 0.00-0.20 ABS IMMATURE GRANULOCYTES (test code = 1020) 0.02 K/UL 0.00-0.10 ABS NUCLEATED RBCS (test code = 20829) 0.00 K/UL 0.00-0.11 VITAMIN D, 25 [id number] 05:32:52* Test Item Value Reference Range Interpretation Comme nts VITAMIN D, 25 OH (test code = 4958) 35 NG/ML SEE BELOW EFFECTIVE 07/2023, PLEASE NOTE NEW METHODOLOGY IS ELECTROCHEMILUMINESCENCE BINDING ASSAY. NOTE: 25-HYDROXYVITAMIN D ASSAY INCLUDES 25-HYDROXYVITAMIN D2 AND D3. INTERPRETIVE RANGES PEDIATRIC (<17 YEARS) . . . . . . . . . . . NG/ML 20-100ADULT: INSUFFICIENT . . . . . . . . . . . . . . NG/ML <20 SUBOPTIMAL . . . . . . . . . . . . . . . NG/ML 20-29 OPTIMAL . . . . . . . . . . . . . . . . . NG/ML 30-100 TSH, THIRD [id number] 05:32:06* Test Item Value Reference Range Interpretation Comme nts TSH, THIRD GENERATION (test code = 2821) 1.070 UIU/ML 0.400-4.100 UNLESS OTHERWISE INDICATED, ALL TESTING PERFORMED AT [facility] [address] [place] [address] 97[address] MANAGER OF INTERNAL: KEATON RAM M.D. CLIA NUMBER [id number] [facility]. [id number] CBC W/AUTO DIFF WITH [id number] 03:59:33* Test Item Value Reference Range Interpretation Comme nts WBC (test code = 1001) 7.2 K/UL 3.5-11.0 RBC (test code = 1002) 4.18 M/UL 3.80-5.40 HEMOGLOBIN (test code = 1003) 12.3 G/DL 11.5-15.5 HEMATOCRIT (test code = 1004) 36.9 % 34.0-45.0 MCV (test code = 1005) 88.3 fL 80.0-99.0 MCH (test code = 1006) 29.4 PG 25.0-33.0 MCHC (test code = 1007) 33.3 G/DL 31.0-36.0 RDW (test code = 1038) 13.5 % 11.5-15.0 NEUTROPHILS (test code = 1008) 69.3 % LYMPHOCYTES (test code = 1010) 21.6 % MONOCYTES (test code = 1011) 7.0 % EOSINOPHILS (test code = 1012) 1.3 % BASOPHILS (test code = 1013) 0.4 % IMMATURE GRANULOCYTES (test code = 1036) 0.4 % NUCLEATED RBCS (test code = 1065) 0.0 /100 WBC'S See_Comment [Automated message] The system which generated this result transmitted reference range: 0.0. The reference range was not used to interpret this result as normal/abnormal. PLATELET COUNT (test code = 1015) 200 K/UL 130-400 ABSOLUTE NEUTROPHILS (test code = 1066) 4.97 K/UL 1.50-7.50 ABSOLUTE LYMPHOCYTES (test code = 1067) 1.55 K/UL 1.00-4.00 ABSOLUTE MONOCYTES (test code = 1068) 0.50 K/UL 0.20-1.00 ABSOLUTE EOSINOPHILS (test code = 1040) 0.09 K/UL 0.00-0.50 ABSOLUTE BASOPHILS (test code = 1069) 0.03 K/UL 0.00-0.20 ABS IMMATURE GRANULOCYTES (test code = 1020) 0.03 K/UL 0.00-0.10 ABS NUCLEATED RBCS (test code = 72785) 0.00 K/UL 0.00-0.11 UNLESS OTHER [place] INDICATED, ALL TESTING PERFORMED AT [facility] [address] [place] [address] MANAGER OF INTERNAL: KEATON RAM M.D. CLIA NUMBER [id number] [facility] [place]. [id number] COMPREHENSIVE METABOLIC [id number] 06:51:21* Test Item Value Reference Range Interpretation Comme nts GLUCOSE (test code = 2217) 188 MG/DL 70-99 H BUN (test code = 2208) 23 MG/DL 8-23 CREATININE (test code = 2214) 0.56 MG/DL 0.60-1.30 L eGFR (2020 CKD-EPI) (test code = 01927) 95 ML/MIN/1.73 >60 CALC BUN/CREAT (test code = 2235) 41 RATIO 6-28 H SODIUM (test code = 2231) 142 MEQ/L 133-146 POTASSIUM (test code = 2228) 4.3 MEQ/L 3.5-5.4 CHLORIDE (test code = 2215) 106 MEQ/L 95-107 CARBON DIOXIDE (test code = 2206) 19 MEQ/L 19-31 CALCIUM (test code = 2209) 9.3 MG/DL 8.5-10.5 PROTEIN, TOTAL (test code = 222) 6.6 G/DL 6.1-8.3 ALBUMIN (test code = 2201) 4.4 G/DL 3.5-5.2 CALC GLOBULIN (test code = 2240) 2.2 G/DL 1.9-3.7 CALC A/G RATIO (test code = 2234) 2.0 RATIO 1.0-2.6 BILIRUBIN, TOTAL (test code = 2207) 0.5 MG/DL See_Comment [Automated me ssage] The system which generated this result transmitted reference range: <=1.2. The reference range was not used to interpret this result as normal/abnormal. ALKALINE PHOSPHATASE (test code = 2203) 91 U/L 40-142 AST (test code = 2218) 14 U/L 9-40 ALT (test code = 2219) 11 U/L 5-40 LIPID [id number] 06:51:21* Test Item Value Reference Range Interpretation Comme nts CHOLESTEROL (test code = 2210) 116 MG/DL <200 TRIGLYCERIDES (test code = 2) 127 MG/DL <150 HDL CHOLESTEROL (test code = 0) 63 MG/DL >39 CALC LDL CHOL (test code = 2236) 32 MG/DL <100 NOTE: CALCULATED LDL IS BASED ON YASMEEN-LOU METHOD WHICHINCLUDES ADJUSTABLE TRIGLYCERIDE:VLDL CHOLESTEROL RATIO.THIS FACTOR VARIES BY MEASURED TRIGLYCERIDE AND NON-HDLCHOLESTEROL CONCENTRATIONS WITH INCREASED CALCULATED LDL SEENIN HIGHER TRIGLYCERIDE OR LOWER NON-HDL SPECIMENS. FOR MOREINFORMATION, SEE CLIENT ANNOUNCEMENT AT [email or web address] RISK RATIO LDL/HDL (test code = 2238) 0.51 RATIO <3.22 VITAMIN D, 25 [id number] 06:13:17* Test Item Value Reference Range Interpretation Comme nts VITAMIN D, 25 OH (test code = 4958) 38 NG/ML SEE BELOW EFFECTIVE 07/2023, PLEASE NOTE NEW METHODOLOGY IS ELECTROCHEMILUMINESCENCE BINDING ASSAY. NOTE: 25-HYDROXYVITAMIN D ASSAY INCLUDES 25-HYDROXYVITAMIN D2 AND D3. INTERPRETIVE RANGES PEDIATRIC (<17 YEARS) . . . . . . . . . . . NG/ML 20-100ADULT: INSUFFICIENT . . . . . . . . . . . . . . NG/ML <20 SUBOPTIMAL . . . . . . . . . . . . . . . NG/ML 20-29 OPTIMAL . . . . . . . . . . . . . . . . . NG/ML 30-100 UNLESS OTHERWISE INDICATED, ALL TESTING PERFORMED AT [facility] [address] [place] [address] MANAGER OF INTERNAL: KEATON RAM M.D. IA NUMBER [id number] [facility] [place]. [id number] HEMOGLOBIN [id number] 05:12:55* Test Item Value Reference Range Interpretation Comme nts HEMOGLOBIN A1c (test code = 97919) 6.3 % 4.2-5.6 H [employer] DI[employer] S [employer]IATION GUIDELINES FOR HGB A1C: PREDIABETES/INCREASED RISK . . . . . . . 5.7-6.4% DIAGNOSIS OF DIABETES . . . . . . . . . >=6.5% WITH CONFIRMATION OR APPROPRIATE SYMPTOMS NOTE: ASSAY MAY BE AFFECTED BY HEMOGLOBINOPATHIES (SICKLE CELL ANEMIA, S-C DISEASE, OTHERS) OR ARTIFICIALLY LOWERED BY DECREASED RED CELL SURVIVAL (HEMOLYTIC ANEMIAS, BLOOD LOSS, ETC.). CONSIDER ALTERNATE TESTING OR LABORATORY CONSULTATION. CBC W/AUTO DIFF WITH [id number] 04:10:32* Test Item Value Reference Range Interpretation Comme nts WBC (test code = 1001) 15.2 K/UL 3.5-11.0 H RBC (test code = 1002) 3.95 M/UL 3.80-5.40 HEMOGLOBIN (test code = 1003) 11.8 G/DL 11.5-15.5 HEMATOCRIT (test code = 1004) 34.8 % 34.0-45.0 MCV (test code = 1005) 88.1 fL 80.0-99.0 MCH (test code = 1006) 29.9 PG 25.0-33.0 MCHC (test code = 1007) 33.9 G/DL 31.0-36.0 RDW (test code = 1038) 13.7 % 11.5-15.0 NEUTROPHILS (test code = 1008) 89.1 % LYMPHOCYTES (test code = 1010) 6.4 % MONOCYTES (test code = 1011) 3.6 % EOSINOPHILS (test code = 1012) 0.0 % BASOPHILS (test code = 1013) 0.1 % IMMATURE GRANULOCYTES (test code = 1036) 0.8 % NUCLEATED RBCS (test code = 1065) 0.0 /100 WBC'S See_Comment [Automated Novavax ABa ge] The system which generated this result transmitted reference range: 0.0. The reference range was not used to interpret this result as normal/abnormal. PLATELET COUNT (test code = 1015) 208 K/UL 130-400 ABSOLUTE NEUTROPHILS (test code = 1066) 13.52 K/UL 1.50-7.50 H ABSOLUTE LYMPHOCYTES (test code = 1067) 0.97 K/UL 1.00-4.00 L ABSOLUTE MONOCYTES (test code = 1068) 0.55 K/UL 0.20-1.00 ABSOLUTE EOSINOPHILS (test code = 1040) 0.00 K/UL 0.00-0.50 ABSOLUTE BASOPHILS (test code = 1069) 0.01 K/UL 0.00-0.20 ABS IMMATURE GRANULOCYTES (test code = 1020) 0.12 K/UL 0.00-0.10 H ABS NUCLEATED RBCS (test code = 78128) 0.00 K/UL 0.00-0.11 LIPID [id number] 08:35:55* Test Item Value Reference Range Interpretation Comme nts CHOLESTEROL (test code = 2210) 141 MG/DL <200 TRIGLYCERIDES (test code = 2232) 134 MG/DL <150 HDL CHOLESTEROL (test code = 2220) 70 MG/DL >39 CALC LDL CHOL (test code = 2237) 49 MG/DL <100 NOTE: CALCULATED LDL IS BASED ON YASMEEN-LOU METHOD WHICHINCLUDES ADJUSTABLE TRIGLYCERIDE:VLDL CHOLESTEROL RATIO.THIS FACTOR VARIES BY MEASURED TRIGLYCERIDE AND NON-HDLCHOLESTEROL CONCENTRATIONS WITH INCREASED CALCULATED LDL SEENIN HIGHER TRIGLYCERIDE OR LOWER NON-HDL SPECIMENS. FOR MOREINFORMATION, SEE CLIENT ANNOUNCEMENT AT [email or web address] [email or web address] RATIO LDL/HDL (test code = 2238) 0.70 RATIO <3.22 COMPREHENSIVE METABOLIC [id number] 08:35:55* Test Item Value Reference Range Interpretation Comme nts GLUCOSE (test code = 2217) 108 MG/DL 70-99 H BUN (test code = 2208) 18 MG/DL 8-23 CREATININE (test code = 2214) 0.64 MG/DL 0.60-1.30 eGFR (2020 CKD-EPI) (test code = 66922) 93 ML/MIN/1.73 >60 CALC BUN/CREAT (test code = 2235) 28 RATIO 6-28 SODIUM (test code = 223) 145 MEQ/L 133-146 POTASSIUM (test code = 8) 4.3 MEQ/L 3.5-5.4 CHLORIDE (test code = 2215) 108 MEQ/L 95-107 H CARBON DIOXIDE (test code = 2205) 25 MEQ/L 19-31 CALCIUM (test code = 2208) 9.8 MG/DL 8.5-10.5 PROTEIN, TOTAL (test code = 2228) 6.5 G/DL 6.1-8.3 ALBUMIN (test code = 2200) 4.4 G/DL 3.5-5.2 CALC GLOBULIN (test code = 0) 2.1 G/DL 1.9-3.7 CALC A/G RATIO (test code = 2233) 2.1 RATIO 1.0-2.6 BILIRUBIN, TOTAL (test code = 2206) 0.6 MG/DL See_Comment [Automated me ssage] The system which generated this result transmitted reference range: <=1.2. The reference range was not used to interpret this result as normal/abnormal. ALKALINE PHOSPHATASE (test code = 2203) 77 U/L 40-142 AST (test code = 8) 14 U/L 9-40 ALT (test code = 2219) 15 U/L 5-40 UNLESS OTHERWISE INDICATED, ALL TEST[facility] [address] [place] [address] MANAGER OF INTERNAL: BRANDON HANNA M.D. CLIA NUMBER [id number] [facility] [place]. [id number] HEMOGLOBIN [id number] 07:44:09* Test Item Value Reference Range Interpretation Comme [facility] HEMOGLOBIN A1c (test code = 51025) 6.9 % 4.2-5.6 H [employer] DIAB[employer] S ASSOCIATION GUIDELINES FOR HGB A1C: PREDIABETES/INCREASED RISK . . . . . . . 5.7-6.4% DIAGNOSIS OF DIABETES . . . . . . . . . >=6.5% WITH CONFIRMATION OR APPROPRIATE SYMPTOMS NOTE: ASSAY MAY BE AFFECTED BY HEMOGLOBINOPATHIES (SICKLE CELL ANEMIA, S-C DISEASE, OTHERS) OR ARTIFICIALLY LOWERED BY DECREASED RED CELL SURVIVAL (HEMOLYTIC ANEMIAS, BLOOD LOSS, ETC.). CONSIDER ALTERNATE TESTING OR LABORATORY CONSULTATION. TSH, THIRD [id number] 05:46:24* Test Item Value Reference Range Interpretation Comme nts TSH, THIRD GENERATION (test code = 2821) 0.445 UIU/ML 0.400-4.100 VITAMIN [id number] 05:46:24* Test Item Value Reference Range Interpretation Comme nts VITAMIN B-12 (test code = 2840) 392 PG/ML 200-950 COMPREHENSIVE METABOLIC [id number] 05:24:42* Test Item Value Reference Range Interpretation Comme nts GLUCOSE (test code = 2216) 91 MG/DL 70-99 BUN (test code = 2207) 11 MG/DL 8-23 CREATININE (test code = 2213) 0.58 MG/DL 0.60-1.30 L eGFR (2020 CKD-EPI) (test code = 99106) 95 ML/MIN/1.73 >60 CALC BUN/CREAT (test code = 2234) 19 RATIO 6-28 SODIUM (test code = 2230) 142 MEQ/L 133-146 POTASSIUM (test code = 222) 4.0 MEQ/L 3.5-5.4 CHLORIDE (test code = 2214) 105 MEQ/L 95-107 CARBON DIOXIDE (test code = 2205) 23 MEQ/L 19-31 CALCIUM (test code = 2209) 9.5 MG/DL 8.5-10.5 PROTEIN, TOTAL (test code = 2228) 6.6 G/DL 6.1-8.3 ALBUMIN (test code = 2200) 4.6 G/DL 3.5-5.2 CALC GLOBULIN (test code = 2240) 2.0 G/DL 1.9-3.7 CALC A/G RATIO (test code = 2233) 2.3 RATIO 1.0-2.6 BILIRUBIN, TOTAL (test code = 2206) 0.8 MG/DL See_Comment [Automated me ssage] The system which generated this result transmitted reference range: <=1.2. The reference range was not used to interpret this result as normal/abnormal. ALKALINE PHOSPHATASE (test code = 2203) 76 U/L 40-142 AST (test code = 2218) 19 U/L 9-40 ALT (test code = 2219) 13 U/L 5-40 UNLESS OTHERWISE INDICATED, ALL TESTING PERFORMED [facility] [address] [place] [address] MANAGER OF INTERNAL: BRANDON HANNA M.D. CLIA NUMBER [id number] [facility] [place]. [id number] CBC W/AUTO DIFF WITH [id number] 02:55:01* Test Item Value Reference Range Interpretation Comme nts WBC (test code = 1001) 7.2 K/UL 3.5-11.0 RBC (test code = 1002) 3.87 M/UL 3.80-5.40 HEMOGLOBIN (test code = 1003) 11.5 G/DL 11.5-15.5 HEMATOCRIT (test code = 1004) 33.6 % 34.0-45.0 L MCV (test code = 1005) 86.8 fL 80.0-99.0 MCH (test code = 1006) 29.7 PG 25.0-33.0 MCHC (test code = 1007) 34.2 G/DL 31.0-36.0 RDW (test code = 1038) 13.1 % 11.5-15.0 NEUTROPHILS (test code = 1008) 63.5 % LYMPHOCYTES (test code = 1010) 24.9 % MONOCYTES (test code = 1011) 9.6 % EOSINOPHILS (test code = 1012) 1.5 % BASOPHILS (test code = 1013) 0.4 % IMMATURE GRANULOCYTES (test code = 1036) 0.1 % NUCLEATED RBCS (test code = 1065) 0.0 /100 WBC'S See_Comment [Automated messa ge] The system which generated this result transmitted reference range: 0.0. The reference range was not used to interpret this result as normal/abnormal. PLATELET COUNT (test code = 1015) 203 K/UL 130-400 ABSOLUTE NEUTROPHILS (test code = 1066) 4.54 K/UL 1.50-7.50 ABSOLUTE LYMPHOCYTES (test code = 1067) 1.78 K/UL 1.00-4.00 ABSOLUTE MONOCYTES (test code = 1068) 0.69 K/UL 0.20-1.00 ABSOLUTE EOSINOPHILS (test code = 1040) 0.11 K/UL 0.00-0.50 ABSOLUTE BASOPHILS (test code = 1069) 0.03 K/UL 0.00-0.20 ABS IMMATURE GRANULOCYTES (test code = 1020) 0.01 K/UL 0.00-0.10 ABS NUCLEATED RBCS (test code = 70834) 0.00 K/UL 0.00-0.11 [id number] 00:00:00* Test Item Value Reference Range Interpretation Comme nts TSH, THIRD GENERATION (test code = 2821) 0.445 UIU/ML CBC W/AUTO [id number] 00:00:00* Test Item Value Reference Range Interpretation Comme nts WBC (test code = 1001) 7.2 K/UL RBC (test code = 1002) 3.87 M/UL HEMOGLOBIN (test code = 1003) 11.5 G/DL HEMATOCRIT (test code = 1004) 33.6 % MCV (test code = 1005) 86.8 fL MCH (test code = 1006) 29.7 PG MCHC (test code = 1007) 34.2 G/DL RDW (test code = 1038) 13.1 % NEUTROPHILS (test code = 1008) 63.5 % LYMPHOCYTES (test code = 1010) 24.9 % MONOCYTES (test code = 1011) 9.6 % EOSINOPHILS (test code = 1012) 1.5 % BASOPHILS (test code = 1013) 0.4 % IMMATURE GRANULOCYTES (test code = 1036) 0.1 % NUCLEATED RBCS (test code = 1065) 0.0 /100WBC'S PLATELET COUNT (test code = 1015) 203 K/UL ABSOLUTE NEUTROPHILS (test c ode = 1066) 4.54 K/UL ABSOLUTE LYMPHOCYTES (test c ode = 1067) 1.78 K/UL ABSOLUTE MONOCYTES (test cod e = 1068) 0.69 K/UL ABSOLUTE EOSINOPHILS (test c ode = 1040) 0.11 K/UL ABSOLUTE BASOPHILS (test cod e = 1069) 0.03 K/UL ABS IMMATURE GRANULOCYTES (t est code = 1020) 0.01 K/UL ABS NUCLEATED RBCS (test cod e = 03799) 0.00 K/UL VITAMIN [id number] 00:00:00* Test Item Value Reference Range Interpretation Comme nts VITAMIN B-12 (test code = 2840) 392 PG/ML COMPREHENSIVE METABOLIC [id number] 00:00:00* Test Item Value Reference Range Interpretation Comme nts GLUCOSE (test code = 2217) 91 MG/DL BUN (test code = 2208) 11 MG/DL CREATININE (test code = 2214) 0.58 MG/DL eGFR (2020 CKD-EPI) (test co de = 75364) 95 ML/MIN/1.73 CALC BUN/CREAT (test code = 2235) 19 RATIO SODIUM (test code = 2231) 142 MEQ/L POTASSIUM (test code = 2228) 4.0 MEQ/L CHLORIDE (test code = 2215) 105 MEQ/L CARBON DIOXIDE (test code = 2206) 23 MEQ/L CALCIUM (test code = 2209) 9.5 MG/DL PROTEIN, TOTAL (test code = 2229) 6.6 G/DL ALBUMIN (test code = 2201) 4.6 G/DL CALC GLOBULIN (test code = 2240) 2.0 G/DL CALC A/G RATIO (test code = 2234) 2.3 RATIO BILIRUBIN, TOTAL (test code = 2207) 0.8 MG/DL ALKALINE PHOSPHATASE (test code = 2204) 76 U/L AST (test code = 2218) 19 U/L ALT (test code = 2219) 13 U/L LIPID [id number] 04:38:00* Test Item Value Reference Range Interpretation Comme nts CHOLESTEROL (test code = 2210) 149 MG/DL <200 TRIGLYCERIDES (test code = 2232) 91 MG/DL <150 HDL CHOLESTEROL (test code = 2220) 84 MG/DL >39 CALC LDL CHOL (test code = 2237) 48 MG/DL <100 NOTE: CALCULATED LDL IS BASED ON YASMEEN-LOU METHOD WHICHINCLUDES ADJUSTABLE TRIGLYCERIDE:VLDL CHOLESTEROL RATIO.THIS FACTOR VARIES BY MEASURED TRIGLYCERIDE AND NON-HDLCHOLESTEROL CONCENTRATIONS WITH INCREASED CALCULATED LDL SEENIN HIGHER TRIGLYCERIDE OR LOWER NON-HDL SPECIMENS. FOR MOREINFORMATION, SEE CLIENT ANNOUNCEMENT AT [email or web address] RATIO LDL/HDL (test code = 2238) 0.57 RATIO <3.22 UNLESS OTHERW ISE INDICATED, ALL TESTING PERFORMED [facility] [address] [place] [address] MANAGER OF INTERNAL: BRANDON HANNA M.D. CLIA NUMBER [id number] [facility] [place]. [id number] HEMOGLOBIN [id number] 04:26:46* Test Item Value Reference Range Interpretation Comme nts HEMOGLOBIN A1c (test code = 39044) 6.6 % 4.2-5.6 H [employer] DI[employer] S ASSOCIATION GUIDELINES FOR HGB A1C: PREDIABETES/INCREASED RISK . . . . . . . 5.7-6.4% DIAGNOSIS OF DIABETES . . . . . . . . . >=6.5% WITH CONFIRMATION OR APPROPRIATE SYMPTOMS NOTE: ASSAY MAY BE AFFECTED BY HEMOGLOBINOPATHIES (SICKLE CELL ANEMIA, S-C DISEASE, OTHERS) OR ARTIFICIALLY LOWERED BY DECREASED RED CELL SURVIVAL (HEMOLYTIC ANEMIAS, BLOOD LOSS, ETC.). CONSIDER ALTERNATE TESTING OR LABORATORY CONSULTATION. HEMOGLOBIN [id number] 00:00:00* Test Item Value Reference Range Interpretation Comme nts HEMOGLOBIN A1c (test code = 46994) 6.6 % LIPID [id number] 00:00:00* Test Item Value Reference Range Interpretation Comme nts CHOLESTEROL (test code = 2210) 149 MG/DL TRIGLYCERIDES (test code = 2232) 91 MG/DL HDL CHOLESTEROL (test code = 2220) 84 MG/DL CALC LDL CHOL (test code = 2237) 48 MG/DL RISK RATIO LDL/HDL (test cod e = 2238) 0.57 RATIO SARS-CoV-2 (COVID-19), RT-PCR/[id number] 17:21:13* Test Item Value Reference Range Interpretation Comments SARS-CoV-2 INTERPRETATION (test code = 81882) POSITIVE SEE NOTE A SARS-CoV-2 RNA DETECTEDPositive results are indicative of the presence of SARS-CoV-2 RNA;clinical correlation with patient history and other diagnosticinformation is necessary to determine patient infection status.Positive results do not rule out bacterial infection or co-infectionwith other viruses. Positive and negative predictive values oftesting are highly dependent on prevalence. SOURCE (test code = 79054) NASOPHARYNGEAL Note: Methodolog y is Yuki Lizzie Real-Time RT-PCR. The expected result or reference range is NEGATIVE (Not Detected). For more information regarding COVID-19 testing to include clinicalinformation, methodology detail, intended use, FDA authorization andrecommended fact sheets for patients or healthcare providers, see NewTest Announcement: SARS-CoV-2 (COVID-19) by NAAT at URL below (note,fact sheets are provided by method given in report:[email or web address]/ Alternatively, see downloadable PDF fact sheet at:[email or web address] UNLESS OTHERWISE INDICATED, ALL TESTING PERFORMED [facility] [address] [place] [address] MANAGER OF INTERNAL: BRANDON HANNA M.D. CLIA NUMBER [id number] [facility] [place]. [id number] SARS-CoV-2 (COVID-19) by RT-PCR (HIGH RISK)2021-12-06 00:00:00* Test Item Value Reference Range Interpretation Comme nts SARS-CoV-2 INTERPRETATION (test code = 93970) POSITIVE SOURCE (test code = 29603) NASOPHARYNGEAL HEMOGLOBIN [id number] 00:00:00* Test Item Value Reference Range Interpretation Comme nts HEMOGLOBIN A1c (test code = 65679) 6.3 % COMPREHENSIVE METABOLIC [id number] 00:00:00* Test Item Value Reference Range Interpretation Comme nts GLUCOSE (test code = 2217) 93 MG/DL BUN (test code = 2208) 20 MG/DL CREATININE (test code = 2214) 0.71 MG/DL eGFR AMER. (test cod e = 79104) 98 ML/MIN/1.73 eGFR NON- AMER. (test code = 70856) 84 ML/MIN/1.73 CALC BUN/CREAT (test code = 2235) 28 RATIO SODIUM (test code = 2231) 141 MEQ/L POTASSIUM (test code = 2228) 4.0 MEQ/L CHLORIDE (test code = 2215) 103 MEQ/L CARBON DIOXIDE (test code = 2206) 27 MEQ/L CALCIUM (test code = 2209) 9.4 MG/DL PROTEIN, TOTAL (test code = 2229) 6.7 G/DL ALBUMIN (test code = 2201) 4.4 G/DL CALC GLOBULIN (test code = 2240) 2.3 G/DL CALC A/G RATIO (test code = 2234) 1.9 RATIO BILIRUBIN, TOTAL (test code = 2207) 0.8 MG/DL ALKALINE PHOSPHATASE (test code = 2204) 79 U/L AST (test code = 2218) 18 U/L ALT (test code = 2219) 17 U/L CBC W/AUTO [id number] 00:00:00* Test Item Value Reference Range Interpretation Comme nts WBC (test code = 1001) 5.8 K/UL RBC (test code = 1002) 3.97 M/UL HEMOGLOBIN (test code = 1003) 12.0 G/DL HEMATOCRIT (test code = 1004) 35.8 % MCV (test code = 1005) 90.2 fL MCH (test code = 1006) 30.2 PG MCHC (test code = 1007) 33.5 G/DL RDW (test code = 1038) 13.1 % NEUTROPHILS (test code = 1008) 53.8 % LYMPHOCYTES (test code = 1010) 35.6 % MONOCYTES (test code = 1011) 7.5 % EOSINOPHILS (test code = 1012) 2.2 % BASOPHILS (test code = 1013) 0.7 % IMMATURE GRANULOCYTES (test code = 1036) 0.2 % NUCLEATED RBCS (test code = 1065) 0.0 /100WBC'S PLATELET COUNT (test code = 1015) 229 K/UL ABSOLUTE NEUTROPHILS (test c ode = 1066) 3.14 K/UL ABSOLUTE LYMPHOCYTES (test c ode = 1067) 2.08 K/UL ABSOLUTE MONOCYTES (test cod e = 1068) 0.44 K/UL ABSOLUTE EOSINOPHILS (test c ode = 1040) 0.13 K/UL ABSOLUTE BASOPHILS (test cod e = 1069) 0.04 K/UL ABS IMMATURE GRANULOCYTES (t est code = 1020) 0.01 K/UL ABS NUCLEATED RBCS (test cod e = 98114) 0.00 K/UL VITAMIN D, 25 [id number] 00:00:00* Test Item Value Reference Range Interpretation Comme [facility] VITAMIN D, 25 OH (test code = 4958) 51 NG/ML RHEUMATOID FACTOR, [id number] 00:00:00* Test Item Value Reference Range Interpretation Comme [facility] RHEUMATOID FACTOR, QUANT (te st code = 3502) <10 IU/ML C-REACTIVE [id number] 00:00:00* Test Item Value Reference Range Interpretation Comme nts C-REACTIVE PROTEIN (test cod e = 3513) <0.3 MG/DL LUNA (ANTI-NUCLEAR AB) WITH REFLEX [id number] 00:00:00* Test Item Value Reference Range Interpretation Comme [facility] ANTI-NUCLEAR ANTIBODIES (lindsay t code = 3506) NEGATIVE SEDIMENTATION [id number] 00:00:00* Test Item Value Reference Range Interpretation Comme nts SEDIMENTATION RATE (test cod e = 1017) 17 MM/HOUR URIC [id number] 00:00:00* Test Item Value Reference Range Interpretation Comme nts URIC ACID (test code = 2233) 4.6 MG/DL HEMOGLOBIN [id number] 00:00:00* Test Item Value Reference Range Interpretation Comme nts HEMOGLOBIN A1c (test code = 37340) 6.7 % LIPID [id number] 00:00:00* Test Item Value Reference Range Interpretation Comme nts CHOLESTEROL (test code = 2210) 129 MG/DL TRIGLYCERIDES (test code = 2232) 94 MG/DL HDL CHOLESTEROL (test code = 2220) 69 MG/DL CALC LDL CHOL (test code = 2237) 42 MG/DL RISK RATIO LDL/HDL (test cod e = 2238) 0.61 RATIO [id number] 00:00:00* Test Item Value Reference Range Interpretation Comme [facility] TSH, THIRD GENERATION (test code = 2821) 2.240 UIU/ML VITAMIN D, 25 [id number] 00:00:00* Test Item Value Reference Range Interpretation Comme [facility] VITAMIN D, 25 OH (test code = 4958) 44 NG/ML CBC W/AUTO [id number] 00:00:00* Test Item Value Reference Range Interpretation Comme nts WBC (test code = 1001) 5.3 K/UL RBC (test code = 1002) 3.89 M/UL HEMOGLOBIN (test code = 1003) 11.4 G/DL HEMATOCRIT (test code = 1004) 34.5 % MCV (test code = 1005) 88.7 fL MCH (test code = 1006) 29.3 PG MCHC (test code = 1007) 33.0 G/DL RDW (test code = 1038) 14.5 % NEUTROPHILS (test code = 1008) 51.3 % LYMPHOCYTES (test code = 1010) 37.8 % MONOCYTES (test code = 1011) 7.5 % EOSINOPHILS (test code = 1012) 2.8 % BASOPHILS (test code = 1013) 0.6 % IMMATURE GRANULOCYTES (test code = 1036) 0.0 % NUCLEATED RBCS (test code = 1065) 0.0 /100WBC'S PLATELET COUNT (test code = 1015) 217 K/UL ABSOLUTE NEUTROPHILS (test c ode = 1066) 2.74 K/UL ABSOLUTE LYMPHOCYTES (test c ode = 1067) 2.02 K/UL ABSOLUTE MONOCYTES (test cod e = 1068) 0.40 K/UL ABSOLUTE EOSINOPHILS (test c ode = 1040) 0.15 K/UL ABSOLUTE BASOPHILS (test cod e = 1069) 0.03 K/UL ABS IMMATURE GRANULOCYTES (t est code = 1020) 0.00 K/UL ABS NUCLEATED RBCS (test cod e = 03965) 0.00 K/UL COMPREHENSIVE METABOLIC [id number] 00:00:00* Test Item Value Reference Range Interpretation Comme nts GLUCOSE (test code = 2217) 100 MG/DL BUN (test code = 2208) 17 MG/DL CREATININE (test code = 2214) 0.68 MG/DL eGFR AMER. (test cod e = 67665) 101 ML/MIN/1.73 eGFR NON- AMER. (test code = 96477) 87 ML/MIN/1.73 CALC BUN/CREAT (test code = 2235) 25 RATIO SODIUM (test code = 2231) 144 MEQ/L POTASSIUM (test code = 2228) 4.2 MEQ/L CHLORIDE (test code = 2215) 106 MEQ/L CARBON DIOXIDE (test code = 2206) 24 MEQ/L CALCIUM (test code = 2209) 9.2 MG/DL PROTEIN, TOTAL (test code = 2229) 6.4 G/DL ALBUMIN (test code = 2201) 4.1 G/DL CALC GLOBULIN (test code = 2240) 2.3 G/DL CALC A/G RATIO (test code = 2234) 1.8 RATIO BILIRUBIN, TOTAL (test code = 2207) 0.5 MG/DL ALKALINE PHOSPHATASE (test code = 2204) 74 U/L AST (test code = 2218) 17 U/L ALT (test code = 2219) 13 U/L CBC W/AUTO [id number] 00:00:00* Test Item Value Reference Range Interpretation Comme nts WBC (test code = 1001) 7.0 K/UL RBC (test code = 1002) 4.18 M/UL HEMOGLOBIN (test code = 1003) 12.1 G/DL HEMATOCRIT (test code = 1004) 35.9 % MCV (test code = 1005) 85.9 fL MCH (test code = 1006) 28.9 PG MCHC (test code = 1007) 33.7 G/DL RDW (test code = 1038) 14.1 % NEUTROPHILS (test code = 1008) 56.0 % LYMPHOCYTES (test code = 1010) 33.5 % MONOCYTES (test code = 1011) 6.7 % EOSINOPHILS (test code = 1012) 3.3 % BASOPHILS (test code = 1013) 0.4 % IMMATURE GRANULOCYTES (test code = 1036) 0.1 % NUCLEATED RBCS (test code = 1065) 0.0 /100WBC'S PLATELET COUNT (test code = 1015) 200 K/UL ABSOLUTE NEUTROPHILS (test c ode = 1066) 3.92 K/UL ABSOLUTE LYMPHOCYTES (test c ode = 1067) 2.35 K/UL ABSOLUTE MONOCYTES (test cod e = 1068) 0.47 K/UL ABSOLUTE EOSINOPHILS (test c ode = 1040) 0.23 K/UL ABSOLUTE BASOPHILS (test cod e = 1069) 0.03 K/UL ABS IMMATURE GRANULOCYTES (t est code = 1020) 0.01 K/UL ABS NUCLEATED RBCS (test cod e = 44799) 0.00 K/UL COMPREHENSIVE METABOLIC [id number] 00:00:00* Test Item Value Reference Range Interpretation Comme nts GLUCOSE (test code = 2217) 89 MG/DL BUN (test code = 2208) 15 MG/DL CREATININE (test code = 2214) 0.70 MG/DL eGFR AMER. (test cod e = 26792) 100 ML/MIN/1.73 eGFR NON- AMER. (test code = 81670) 86 ML/MIN/1.73 CALC BUN/CREAT (test code = 2235) 21 RATIO SODIUM (test code = 2231) 143 MEQ/L POTASSIUM (test code = 2228) 4.0 MEQ/L CHLORIDE (test code = 2215) 102 MEQ/L CARBON DIOXIDE (test code = 2206) 27 MEQ/L CALCIUM (test code = 2209) 9.9 MG/DL PROTEIN, TOTAL (test code = 2229) 7.0 G/DL ALBUMIN (test code = 2201) 4.5 G/DL CALC GLOBULIN (test code = 2240) 2.5 G/DL CALC A/G RATIO (test code = 2234) 1.8 RATIO BILIRUBIN, TOTAL (test code = 2207) 1.0 MG/DL ALKALINE PHOSPHATASE (test code = 2204) 92 U/L AST (test code = 2218) 17 U/L ALT (test code = 2219) 13 U/L CBC W/AUTO [id number] 00:00:00* Test Item Value Reference Range Interpretation Comme nts WBC (test code = 1001) 4.8 K/UL RBC (test code = 1002) 4.23 M/UL HEMOGLOBIN (test code = 1003) 12.5 G/DL HEMATOCRIT (test code = 1004) 37.5 % MCV (test code = 1005) 88.7 fL MCH (test code = 1006) 29.6 PG MCHC (test code = 1007) 33.3 G/DL RDW (test code = 1038) 13.0 % NEUTROPHILS (test code = 1008) 60.9 % LYMPHOCYTES (test code = 1010) 30.0 % MONOCYTES (test code = 1011) 6.0 % EOSINOPHILS (test code = 1012) 2.5 % BASOPHILS (test code = 1013) 0.6 % PLATELET COUNT (test code = 1015) 207 K/UL HEMOGLOBIN [id number] 00:00:00* Test Item Value Reference Range Interpretation Comme nts HEMOGLOBIN A1c (test code = 94720) 6.6 % COMPREHENSIVE METABOLIC [id number] 00:00:00* Test Item Value Reference Range Interpretation Comme nts GLUCOSE (test code = 2217) 129 MG/DL BUN (test code = 2208) 13 MG/DL CREATININE (test code = 2214) 0.56 MG/DL eGFR AMER. (test cod e = 42828) 107 ML/MIN/1.73 eGFR NON- AMER. (test code = 32399) 93 ML/MIN/1.73 CALC BUN/CREAT (test code = 2235) 23 RATIO SODIUM (test code = 2231) 142 MEQ/L POTASSIUM (test code = 2228) 4.3 MEQ/L CHLORIDE (test code = 2215) 104 MEQ/L CARBON DIOXIDE (test code = 2206) 29 MEQ/L CALCIUM (test code = 2209) 9.5 MG/DL PROTEIN, TOTAL (test code = 2229) 7.0 G/DL ALBUMIN (test code = 2201) 4.9 G/DL CALC GLOBULIN (test code = 2240) 2.1 G/DL CALC A/G RATIO (test code = 2234) 2.3 RATIO BILIRUBIN, TOTAL (test code = 2207) 0.7 MG/DL ALKALINE PHOSPHATASE (test code = 2204) 90 U/L AST (test code = 2218) 16 U/L ALT (test code = 2219) 11 U/L VITAMIN D, 25 [id number] 00:00:00* Test Item Value Reference Range Interpretation Comme nts VITAMIN D, 25 OH (test code = 4958) 47 NG/ML [id number] 00:00:00* Test Item Value Reference Range Interpretation Comme nts TSH, THIRD GENERATION (test code = 2821) 1.060 UIU/ML POCT URINALYSIS, [id number] 15:06:00* Test Item Value Reference Range Interpretation Comme nts POCT U SP GRAV (test code = 3255) 1.030 mg/dl 1.005-1.025 A POCT PH U (test code = 3254) 6.0 mg/dl 5-8 POCT U LEUK EST (test code = 3263) negative Negative - Negative POCT U NIT (test code = 3262) negative Negative - Negati ve POCT U PROT (test code = 3259) negative Negative - Negative POCT U GLU (test code = 3256) negative Negative - Negati ve POCT U KETONE (test code = 3258) negative Negative - Negative POCT U UROBILI (test code = 3260) 0.2 mg/dl 0.2-1 POCT U BILI (test code = 3261) negative Negative - Negative POCT U BLD (test code = 3257) negative Negative - Negati ve POCT U COLOR (test code = 3266) yellow POCT U APPEAR (test code = 3267) clear Lab Interpretation (test cod e = 92374-6) Abnormal [facility] URINALYSIS, [id number] 15:06:00 * Test Item Value Reference Range Interpretation Comme nts POCT U SP GRAV (test code = 3255) 1.030 mg/dl 1.005-1.025 A POCT PH U (test code = 3254) 6.0 mg/dl 5-8 POCT U LEUK EST (test code = 3263) negative Negative - Negative POCT U NIT (test code = 3262) negative Negative - Negati ve POCT U PROT (test code = 3259) negative Negative - Negative POCT U GLU (test code = 3256) negative Negative - Negati ve POCT U KETONE (test code = 3258) negative Negative - Negative POCT U UROBILI (test code = 3260) 0.2 mg/dl 0.2-1 POCT U BILI (test code = 3261) negative Negative - Negative POCT U BLD (test code = 3257) negative Negative - Negati ve POCT U COLOR (test code = 3266) yellow POCT U APPEAR (test code = 3267) clear Lab Interpretation (test cod e = 67205-8) Abnormal [facility] URINALYSIS, [id number] 15:13:00 * Test Item Value Reference Range Interpretation Comme nts POCT U SP GRAV (test code = 3255) 1.015 mg/dl 1.005-1.025 POCT PH U (test code = 3254) 5.5 mg/dl 5-8 POCT U LEUK EST (test code = 3263) small Negative - Negative POCT U NIT (test code = 3262) negative Negative - Negati ve POCT U PROT (test code = 3259) negative Negative - Negative POCT U GLU (test code = 3256) negative Negative - Negati ve POCT U KETONE (test code = 3258) negative Negative - Negative POCT U UROBILI (test code = 3260) 0.2 mg/dl 0.2-1 POCT U BILI (test code = 3261) negative Negative - Negative POCT U BLD (test code = 3257) trace Negative - Negati ve POCT U COLOR (test code = 3266) yellow POCT U APPEAR (test code = 3267) clear [facility] URINALYSIS, [id number] 15:13:00 * Test Item Value Reference Range Interpretation Comme nts POCT U SP GRAV (test code = 3255) 1.015 mg/dl 1.005-1.025 POCT PH U (test code = 3254) 5.5 mg/dl 5-8 POCT U LEUK EST (test code = 3263) small Negative - Negative POCT U NIT (test code = 3262) negative Negative - Negati ve POCT U PROT (test code = 3259) negative Negative - Negative POCT U GLU (test code = 3256) negative Negative - Negati ve POCT U KETONE (test code = 3258) negative Negative - Negative POCT U UROBILI (test code = 3260) 0.2 mg/dl 0.2-1 POCT U BILI (test code = 3261) negative Negative - Negative POCT U BLD (test code = 3257) trace Negative - Negati ve POCT U COLOR (test code = 3266) yellow POCT U APPEAR (test code = 3267) clear [facility] W/AUTO [id number] 00:00:00* Test Item Value Reference Range Interpretation Comme nts WBC (test code = 1001) 5.3 K/UL RBC (test code = 1002) 4.16 M/UL HEMOGLOBIN (test code = 1003) 12.5 G/DL HEMATOCRIT (test code = 1004) 36.9 % MCV (test code = 1005) 88.7 fL MCH (test code = 1006) 30.0 PG MCHC (test code = 1007) 33.9 G/DL RDW (test code = 1038) 13.3 % NEUTROPHILS (test code = 1008) 63.5 % LYMPHOCYTES (test code = 1010) 23.7 % MONOCYTES (test code = 1011) 7.2 % EOSINOPHILS (test code = 1012) 4.7 % BASOPHILS (test code = 1013) 0.9 % PLATELET COUNT (test code = 1015) 228 K/UL VITAMIN [id number] 00:00:00* Test Item Value Reference Range Interpretation Comme [facility] VITAMIN B-12 (test code = 2840) 479 PG/ML HEMOGLOBIN [id number] 00:00:00* Test Item Value Reference Range Interpretation Comme [facility] HEMOGLOBIN A1c (test code = 83854) 6.5 % LIPID [id number] 00:00:00* Test Item Value Reference Range Interpretation Comme nts CHOLESTEROL (test code = 2210) 148 MG/DL TRIGLYCERIDES (test code = 2232) 105 MG/DL HDL CHOLESTEROL (test code = 2220) 74 MG/DL CALC LDL CHOL (test code = 2237) 55 MG/DL RISK RATIO LDL/HDL (test cod e = 2238) 0.74 RATIO COMPREHENSIVE METABOLIC [id number] 00:00:00* Test Item Value Reference Range Interpretation Comme nts GLUCOSE (test code = 2217) 115 MG/DL BUN (test code = 2208) 19 MG/DL CREATININE (test code = 2214) 0.55 MG/DL eGFR AMER. (test cod e = 48839) 109 ML/MIN/1.73 eGFR NON- AMER. (test code = 13809) 94 ML/MIN/1.73 CALC BUN/CREAT (test code = 2235) 35 RATIO SODIUM (test code = 2231) 145 MEQ/L POTASSIUM (test code = 2228) 4.3 MEQ/L CHLORIDE (test code = 2215) 106 MEQ/L CARBON DIOXIDE (test code = 2206) 26 MEQ/L CALCIUM (test code = 2209) 9.5 MG/DL PROTEIN, TOTAL (test code = 2229) 7.3 G/DL ALBUMIN (test code = 2201) 4.7 G/DL CALC GLOBULIN (test code = 2240) 2.6 G/DL CALC A/G RATIO (test code = 2234) 1.8 RATIO BILIRUBIN, TOTAL (test code = 2207) 0.9 MG/DL ALKALINE PHOSPHATASE (test code = 2204) 85 U/L AST (test code = 2218) 17 U/L ALT (test code = 2219) 14 U/L HEMOGLOBIN [id number] 00:00:00* Test Item Value Reference Range Interpretation Comme nts HEMOGLOBIN A1c (test code = 54512) 6.1 % HEMOGLOBIN [id number] 00:00:00* Test Item Value Reference Range Interpretation Comme nts HEMOGLOBIN A1c (test code = 71213) 6.3 % LIPID [id number] 00:00:00* Test Item Value Reference Range Interpretation Comme nts CHOLESTEROL (test code = 2210) 140 MG/DL TRIGLYCERIDES (test code = 2232) 98 MG/DL HDL CHOLESTEROL (test code = 2220) 72 MG/DL CALC LDL CHOL (test code = 2237) 48 MG/DL RISK RATIO LDL/HDL (test cod e = 2238) 0.67 RATIO COMPREHENSIVE METABOLIC [id number] 00:00:00* Test Item Value Reference Range Interpretation Comme nts GLUCOSE (test code = 2217) 110 MG/DL BUN (test code = 2208) 14 MG/DL CREATININE (test code = 2214) 0.52 MG/DL eGFR AMER. (test cod e = 62862) 111 ML/MIN/1.73 eGFR NON- AMER. (test code = 88644) 95 ML/MIN/1.73 CALC BUN/CREAT (test code = 2235) 27 RATIO SODIUM (test code = 2231) 142 MEQ/L POTASSIUM (test code = 2228) 4.1 MEQ/L CHLORIDE (test code = 2215) 102 MEQ/L CARBON DIOXIDE (test code = 2206) 27 MEQ/L CALCIUM (test code = 2209) 9.6 MG/DL PROTEIN, TOTAL (test code = 2229) 7.0 G/DL ALBUMIN (test code = 2201) 4.7 G/DL CALC GLOBULIN (test code = 2240) 2.3 G/DL CALC A/G RATIO (test code = 2234) 2.0 RATIO BILIRUBIN, TOTAL (test code = 2207) 1.1 MG/DL ALKALINE PHOSPHATASE (test code = 2204) 78 U/L AST (test code = 2218) 16 U/L ALT (test code = 2219) 9 U/L ANEMIA [id number] 21:55:00* Test Item Value Reference Range Interpretation Comme nts Folate Lvl (test code = Folate Lvl) 25.9 [id number] 21:55:00* Test Item Value Reference Range Interpretation Comme nts eGFR (test code = eGFR) 77 [id number] 21:55:00* Test Item Value Reference Range Interpretation Comme nts RDW (test code = RDW) 13.5 11.5-14.5 [facility] [id number] 21:55:00* Test Item Value Reference Range Interpretation Comme nts T4 Free (test code = T4 Free) 0.98 0.76-1.46 Amanda Marmolejo Notes Lumbar Spine:Alignment is normal. Vertebral height and signal characteristics areElevated T2 signal in the posterior disc annulus at L3-L4 is parallel to theIMPRESSION: Date/Time Note Provider Source 2014-02-05 15:30:00 PORTABLE CHEST 2014-02-05 16:28:00 COMPARISON: None CLINICAL INDICATION: Dyspnea DISCUSSION: Lung volumes are low. Subsegmental atelectasis is seen within the left lower lobe. No evidence of airspace disease. No pleural effusions or pneumothorax. Cardiac silhouette is normal in size. Aorta is unfolded. IMPRESSION: Subsegmental atelectasis within left lower lobe. [facility] 2014-02-05 15:30:00 PORTABLE CHEST 02-05 16:28:00 COMPARISON: None CLINICAL INDICATION: Dyspnea DISCUSSION: Lung volumes are low. Subsegmental atelectasis is seen within the left lower lobe. No evidence of airspace disease. No pleural effusions or pneumothorax. Cardiac silhouette is normal in size. Aorta is unfolded. IMPRESSION: Subsegmental atelectasis within left lower lobe. [facility] 2014-02-04 19:53:00 EXAM: MRI SPINE, ENTIRE DATE: 2014-02-04 19:53:00. INDICATION: TECHNIQUE: Sagittal T1, sagittal T2, axial [...] normal position. No focal signal abnormality is identified within the cervical cord. No intradural pathology [...] cord with possible ventral indentation. Bilateral foraminal narrowing is noted, mild on the right and [...] is identified after administration of intravenous contrast. The conus medullaris terminates at the L1 level. It has a normal contour and normal signal characteristics. No intradural pathology is identified. unremarkable. posterior longitudinal ligament and evidence of degenerative change rather than a radial tear. No focal disc pathology is present at this level otherwise. maintained. posteriorly. The patient has had prior laminectomies at this level. No residual or recurrent disc protrusion is evident. disk pathology is evident. There is no evidence of significant spinal canal or neural foraminal stenosis. No pathologic enhancement is identified after administration of intravenous contrast. Therefore, axial images are obtained at a greater than standard interval. As a consequence, evaluation of the patient's degenerative disease is somewhat limited. infection. 2. No extradural mass lesion. 3. The nerve roots do not appear thickened or to enhance pathologically. 4. Cervical spine degenerative changes resulting in a mild degree of cord impingement at C5-C6. 5. Lumbar degenerative disease at L5-S1 with evidence of prior surgery. No residual or recurrent disc herniation is present. [facility] 2014-02-04 19:53:00 EXAM: MRI SPINE, ENT JERRY DATE: 2014-02-04 19:53:00. INDICATION: TECHNIQUE: Sagittal T1, sagittal T2, axial [...] normal position. No focal signal abnormality is identified within the cervical cord. No intradural pathology [...] cord with possible ventral indentation. Bilateral foraminal narrowing is noted, mild on the right and [...] canal or neural foraminal stenosis. No pathologic enhancement is identified after administration [...] residual or recurrent disc herniation is present. [facility]
[2025-07-01 12:51] LABS: Absolute Lymphocytes (CBC) 2.4 K/uL (0.7-4.9); Hematocrit 37.7 % (36.0-45.0); Hemoglobin 12.5 g/dL (12.0-15.0); MCH 29.4 pg (27.0-35.0); MCHC 33.1 g/dL (32.0-36.0); MCV 88.8 fL (80-100); MPV 7.9 fL (7.6-11.3); Nucleated RBC Absolute Count 0.0 (0-0); Nucleated Red Blood Cells % 0.0 % (0-0); RBC Red Blood Cell Count 4.25 M/uL (3.86-4.86); White Blood Count 12.00 thou/uL (4.3-10.9)
[2025-07-01 13:00] LABS: PT Prothrombin Time 12.5 SECONDS (10-13.0); PTT, Activated Partial Thromb 24.4 SECONDS (27.2-37.4); Protime INR 1.11
[2025-07-01 13:14] LABS: ALT/SGPT 20 U/L (13-56); AST/SGOT 12 U/L (15-37); Albumin 3.2 g/dL (3.4-5.0); Albumin/Globulin Ratio 1.2 (1.1-1.8); Alkaline Phosphatase 82 U/L (45-117); Anion Gap 12.6 mEq/L (5.0-15.0); BUN Blood Urea Nitrogen 24 mg/dL (7-18); Bilirubin Indirect, Calculated 0.4 mg/dL (0.2-0.8); Globulin 2.7 g/dL (2.3-3.5); Glucose Level 206 mg/dL (74-106); Lipase 45 U/L (13-75); Magnesium 2.1 mg/dL (1.6-2.4); Potassium 3.6 mEq/L (3.5-5.1); Troponin High Sensitivity 5.6 pg/mL (<58.9)
--- NOTE | 2025-07-01 13:39 | RAD REPORT ---
EXAM: Chest Single View HISTORY: 79 years Female CHEST PAIN COMPARISON: 11/07/2023 FINDINGS: LUNGS/PLEURA: The lungs are clear. No pleural effusions or pneumothorax. No pulmonary edema. CARDIAC/MEDIASTINUM: The cardiac silhouette is within normal limits. UPPER ABDOMEN: No significant abnormality. BONES: No acute abnormality. LINES/TUBES/OTHER: N/A IMPRESSION: No evidence of acute cardiopulmonary disease.
--- NOTE | 2025-07-01 13:54 | RAD REPORT ---
EXAMINATION: Head Brain Wo Cont CLINICAL INDICATION: Female, 79 years old.Weakness;Syncope TECHNIQUE: Axial CT images from the skull base to the vertex without intravenous contrast. Coronal an d sagittal reformatted images were created from the data set. One or more of the following dose reduction techniques were used: Automated exposure control, adjustment of the mA and/or kV according to patient size, and/or iterative reconstruction. Unless otherwise specified, incidental findings do not require dedicated imaging follow-up. [id number]. COMPARISON: 11/07/2023 FINDINGS: INTRACRANIAL: No acute intracranial hemorrhage. No acute large vascular territory infarct. No hydroce phalus. No mass effect or midline shift. No significant white matter disease. VASCULATURE: No visualized abnormalities in the arteries or dural venous sinuses. SCALP/SKULL: No calvarial fracture identified. No acute soft tissue abnormality. SINUSES: The visualized paranasal sinuses are mostly clear. No significant mastoid fluid. IMPRESSION: No acute intracranial abnormality. No significant change from prior.
--- NOTE | 2025-07-01 14:06 | RAD REPORT ---
EXAM: Angio Aorta For Dissection CLINICAL INDICATION: Female, 79 years ABD PAIN TECHNIQUE: CTA of the aorta was obtained including the chest, abdomen and pelvis, with IV contrast, a s per department protocol. Axial, sagittal and coronal reconstructions were obtained. Post-processing was applied at the acquisition scanner with concurrent physician supervision which in cludes 3D reconstructions, MIPs, volume rendered images and/or shaded surface rendering. One or more of the following dose reduction techniques were used: Automated exposure control, adjustment of the mA and/or kV according to the patient size, and/or iterative reconstruction. Unless otherwise specified, incidental findings do not require dedicated imaging follow-up. [id number]. COMPARISON: No prior exam. FINDINGS: ---THORAX--- LOWER NECK AND CHEST WALL: Visualized thyroid gland and soft tissues are normal. MEDIASTINUM AND LYMPH NODES: No mediastinal mass or fluid collection. Normal size mediastinal, hilar, and axillary lymph nodes. Diffuse esophageal wall thickening. THORACIC AORTA: No thoracic aortic aneurysm. Atherosclerotic changes are present. PULMONARY ARTERIES: Caliber is within normal limits. No pulmonary emboli identified. HEART: Mild cardiomegaly. No coronary calcifications.No significant pericardial effusion. Mitral coleen lar calcifications. LUNGS AND AIRWAYS: Airways are clear. No evidence of airspace or interstitial process. Motion artifac t limits evaluation for pulmonary nodule detection. 8 millimeter left lower lobe nodule on image 74, series 201. PLEURA: No pleural effusion. No pneumothorax. ---ABDOMEN/PELVIS--- UPPER GI: No significant abnormality. LIVER: Hepatic steatosis, but otherwise unremarkable. GALLBLADDER/BILE DUCTS: Cholecystectomy. Moderate extrahepatic biliary ductal dilatation. This could be secondary to the post-cholecystectomy state. Recommend correlation with LFT's. If abnormal, consider MRCP for further evaluation. ? PANCREAS: No mass, ductal dilation, or max-pancreatic fluid. SPLEEN: Unremarkable. ADRENALS: No adrenal masses. KIDNEYS AND URETERS: No hydronephrosis.Low density and/or too small to characterize renal lesions whi ch are statistically benign.No renal calculi.No ureteral calculi. ABDOMINAL AORTA AND OTHER VESSELS: Moderate atherosclerotic changes without aortic aneurysm. PERITONEUM: No abnormal free fluid. No free air. LYMPH NODES: No pathologic lymphadenopathy. ABDOMINAL WALL: Unremarkable SMALL BOWEL/COLON: Small bowel has normal course and caliber. No colonic wall thickening or pericolon ic inflammatory changes.Appendectomy Moderate diverticulosis without diverticulitis. URINARY BLADDER: Underdistended but grossly unremarkable. REPRODUCTIVE ORGANS: No pathologic process. ---COMBINED--- MUSCULOSKELETAL: No acute or suspicious osseous abnormality. ADDITIONAL FINDINGS: None. IMPRESSION: No aortic aneurysm or dissection. No acute findings in the chest, abdomen, or pelvis.. 8 mm left lower lobe pulmonary nodule, strongly favored benign but would recommend 3 month follow-up chest CT to ensure resolution and/or stability.
--- NOTE | 2025-07-01 14:21 | ER ---
Nurse's Notes [facility] Name: Gabriella Whyte Age: 79 yrs Sex: Female : 1945 Arrival Date: 07/01/2025 Time: 12:12 Bed 6 Private MD: Diagnosis: Hypotension, unspecified;Syncope Presentation: 07/01 12:21 Chief complaint: EMS states: FALL AND GENERALIZED WEAKNESS, +HEAD STRIKE, NO LOC. bp Coronavirus screen: At this time, the client does not indicate any symptoms associated with coronavirus-19. Ebola Screen: No symptoms or risks identified at this time. Initial Sepsis Screen: Does the patient meet any 2 criteria? Systolic BP < 90 mmHg. No. Patient's initial sepsis screen is negative. Does the patient have a suspected source of infection? No. Patient's initial sepsis screen is negative. Risk Assessment: Do you want to hurt yourself or someone else? Patient reports no desire to harm self or others. Onset of symptoms was July 01, 2025. Care prior to arrival: Medication(s) given: Normal saline infusion, 1000 mL, zofran 4 mg, IV initiated. 20 GA, in the right antecubital area, Glucose check: 180. 12:21 Method Of Arrival: EMS bp 12:21 Acuity: JOSHUA 2 bp Triage Assessment: 12:23 General: Appears in no apparent distress. Behavior is cooperative, appropriate for age, bp drowsy. Pain: Complains of pain in abdomen. EENT: No deficits noted. Neuro: No deficits noted. Cardiovascular: Rhythm is sinus bradycardia. Respiratory: No deficits noted. GI: Reports lower abdominal pain. : No signs and/or symptoms were reported regarding the genitourinary system. Derm: No deficits noted. Musculoskeletal: No deficits noted. Historical: - Allergies: 12:23 No Known Allergies; bp - PMHx: 12:23 Diabetes - NIDDM; Guillia-Bare's Syndrome; Hypercholesterolemia; Hypertensive disorder; bp Vertigo; - Immunization history:: Adult Immunizations up to date. - Infectious Disease History:: Denies. - Social history:: Smoking status: Patient denies any tobacco usage or history of. Screenin:24 [facility] ED Fall Risk Assessment (Adult) History of falling in the last 3 months, bp including since admission No falls in past 3 months (0 pts) Confusion or Disorientation No (0 pts) Intoxicated or Sedated No (0 pts) Impaired Gait No (0 pts) Mobility Assist Device Used No (0 pt) Altered Elimination No (0 pt) Score/Fall Risk Level 0 - 2 = Low Risk Oriented to surroundings. Abuse screen: Denies threats or abuse. Denies injuries from another. Nutritional screening: No deficits noted. Tuberculosis screening: No symptoms or risk factors identified. Assessment: 12:24 General: SEE TRIAGE NOTE. bp 13:01 Reassessment: Assisted patient onto and off of bed canales. Large, brown, soft BM noted. ss 14:41 Reassessment: Patient appears in no apparent distress at this time. Patient and/or db family updated on plan of care and expected duration. Pain level reassessed. Patient is alert, oriented x 3, equal unlabored respirations, skin warm/dry/pink. PT ASSISTED TO BEDPAN. 15:58 Reassessment: REPORT SENT FOR 403. bp 16:24 Reassessment: Patient appears in no apparent distress at this time. Patient and/or db family updated on plan of care and expected duration. Pain level reassessed. Patient is alert, oriented x 3, equal unlabored respirations, skin warm/dry/pink. PT ASSISTED TO BEDPAN. NOTED WATERY STOOL. GI: Stools are reported to be diarrhea. Last BM at 16:25. 16:57 Reassessment: Patient appears in no apparent distress at this time. Patient and/or db family updated on plan of care and expected duration. Pain level reassessed. Patient is alert, oriented x 3, equal unlabored respirations, skin warm/dry/pink. Vital Signs: 12:21 BP 84 / 32; Pulse 58; Resp 15; Temp 98; Pulse Ox 98% on 2 lpm NC; bp 12:34 BP 79 / 36; Pulse 66; Resp 17; Pulse Ox 100% on R/A; Weight 77.11 kg; Height 5 ft. 7 ss in. ; 13:15 BP 83 / 33; Pulse 68; bp 13:32 BP 92 / 46; bp 14:08 BP 97 / 57; Pulse 66; Resp 17; Pulse Ox 98% ; db 15:57 BP 115 / 52; Pulse 69; Resp 16; Temp 97.9; Pulse Ox 98% ; bp 16:30 BP 115 / 50; Pulse 71; Resp 18; Pulse Ox 96% ; db 12:34 Body Mass Index 26.63 (77.11 kg, 170.18 cm) ss ED Course: 12:21 Patient arrived in ED. bp 12:22 [facility] kb 12:22 Victor Manuel Burt MD is Attending Physician. kb 12:23 Triage completed. bp 12:23 Arm band placed on. bp 12:24 Patient has correct armband on for positive identification. bp 12:24 Maintain EMS IV. Dressing intact. Good blood return noted. Site clean \T\ dry. Gauge \T\ bp site: 20 RAC. Flushed with 10 mL NS. 12:26 Jim Dukes, RN is Primary Nurse. bp 12:49 Radiology exam delayed due to PT ON BED CANALES AT THIS TIME. rs4 13:26 Chest Single View XRAY In Process Unspecified. EDMS 13:45 CT Head Brain wo Cont In Process Unspecified. EDMS 13:48 CT Aorta for Dissection In Process Unspecified. EDMS 14:20 Ashlee Perrin MD is Hospitalizing Provider. kb 16:59 Provided Education on: ADMISSION. Client placed on continuous cardiac and pulse db oximetry monitoring. NIBP monitoring applied. satellite project site monitor on. Pulse ox on. NIBP on. Warm blanket given. Pillow given. 16:59 No provider procedures requiring assistance completed. Patient admitted, IV remains in db place. Administered Medications: 12:37 Drug: NS 0.9% IV 1000 ml IV at 1000 ml once; to be given as a bolus over 60 minutes ss Route: IV; Rate: 1000 ml; Site: left antecubital; 14:47 Follow up: Response: No adverse reaction; IV Status: Completed infusion; IV Intake: db 1000ml 14:47 Drug: Famotidine IVP 20 mg IVP once; dilute with 10 mL 0.9% NaCl; give over 2 minutes db Route: IVP; Site: left antecubital; 16:56 Follow up: Response: No adverse reaction db Medication: 12:24 VIS not applicable for this client. bp Intake: 14:47 IV: 1000ml; Total: 1000ml. db Outcome: 14:20 Decision to Hospitalize by Provider. kb 16:59 Admitted to Med/surg room 4TH, db 16:59 Condition: stable 16:59 Instructed on the need for admit, 17:00 Patient left the ED. db Signatures: Dispatcher [employer] EDMS Rebeca Coleman, KWAME-Danica DEPUTY CHIEF EXECUTIVE-Nicole Wang RN RN ss Jim Dukes RN RN bp Benton, Danielle, RN RN Tati [email or web address] Corrections: (The following items were deleted from the chart) 13:15 12:21 Acuity: JOSHUA 3 bp bp
--- NOTE | 2025-07-01 14:21 | EDPHYS ---
Physician Documentation [facility] Name: Gabriella Whyte Age: 79 yrs Sex: Female : 1945 Arrival Date: 07/01/2025 Time: 12:12 Bed 6 Private MD: ED Physician Victor Manuel Burt HPI: 07/01 13:19 This 79 yrs old Female presents to ER via EMS with complaints of Fall Injury. kb 13:19 Pt is a 79 year old female who presents for syncopal episode that occurred just port captain. kb Family states pt was complaining of chest tightness last night, then abdominal pain this morning around 0900. States pt reported she needed to use the restroom and had a syncopal episode when she tried to get up. Pt reports upper abd pain that radiates to chest. . Historical: - Allergies: 12:23 No Known Allergies; bp - PMHx: 12:23 Diabetes - NIDDM; Guillia-Bare's Syndrome; Hypercholesterolemia; Hypertensive disorder; bp Vertigo; - Immunization history:: Adult Immunizations up to date. - Infectious Disease History:: Denies. - Social history:: Smoking status: Patient denies any tobacco usage or history of. ROS: 13:18 Constitutional: As per HPI kb Exam: 13:18 Constitutional: This is a well developed, well nourished patient who is awake, alert, kb and in no acute distress. Head/Face: Normocephalic, atraumatic. ENT: Moist Mucous membranes Cardiovascular: Regular rate Respiratory: Respirations even and unlabored. No increased work of breathing. Talking in full sentences Skin: Warm, dry with normal turgor. Normal color. MS/ Extremity: Pulses equal, no cyanosis. Neurovascular intact. Full, normal range of motion. Neuro: Awake and alert, GCS 15, oriented to person, place, time, and situation. 13:18 ECG was reviewed by the Attending Physician. 13:18 Abdomen/GI: Inspection: abdomen appears normal, Bowel sounds: normal, Palpation: soft, in all quadrants, mild abdominal tenderness, in the epigastric area and right upper quadrant, Vital Signs: 12:21 BP 84 / 32; Pulse 58; Resp 15; Temp 98; Pulse Ox 98% on 2 lpm NC; bp 12:34 BP 79 / 36; Pulse 66; Resp 17; Pulse Ox 100% on R/A; Weight 77.11 kg; Height 5 ft. 7 ss in. ; 13:15 BP 83 / 33; Pulse 68; bp 13:32 BP 92 / 46; bp 14:08 BP 97 / 57; Pulse 66; Resp 17; Pulse Ox 98% ; db 15:57 BP 115 / 52; Pulse 69; Resp 16; Temp 97.9; Pulse Ox 98% ; bp 16:30 BP 115 / 50; Pulse 71; Resp 18; Pulse Ox 96% ; db 12:34 Body Mass Index 26.63 (77.11 kg, 170.18 cm) ss MDM: 12:22 Medical Screening Exam initiated kb 13:19 Data reviewed: vital signs, nurses notes. kb 14:18 Differential diagnosis: dissection, AAA, acute mi, cva, tia, arrhythmia, syncope, kb dehydration. Consideration of Admission/Observation Patient was admitted/placed on observation. Escalation of care including admission/observation considered. Management of patient was discussed with the following: Hospitalist: Dr Perrin accepts pt for admission. Historians other than the Patient: Family Member: multiple family members. Counseling: I had a detailed discussion with the patient and/or guardian regarding the historical points, exam findings, and any diagnostic results supporting the discharge/admit diagnosis, lab results, radiology results, the need for further work-up and treatment in the hospital. 07/01 12:32 Order name: Basic Metabolic Panel; Complete Time: 13:23 kb 07/01 12:32 Order name: CBC with Diff; Complete Time: 12:57 kb 07/01 12:32 Order name: Hepatic Function; Complete Time: 13:23 kb 07/01 12:32 Order name: Magnesium; Complete Time: 13:23 kb 07/01 12:32 Order name: Protime (+inr); Complete Time: 13:02 kb 07/01 12:32 Order name: Ptt, Activated; Complete Time: 13:02 kb 07/01 12:32 Order name: Troponin High Sensitivity; Complete Time: 13:23 kb 07/01 12:32 Order name: Lipase; Complete Time: 13:23 kb 07/01 12:52 Order name: Glucose, Ancillary Testing; Complete Time: 12:57 EDMS 07/01 15:45 Order name: CBC with Automated Diff EDMS 07/01 15:45 Order name: CBC with Automated Diff EDMS 07/01 15:45 Order name: Comprehensive Metabolic Panel EDMS 07/01 15:45 Order name: Comprehensive Metabolic Panel EDMS 07/01 15:45 Order name: Protime (+INR) EDMS 07/01 15:45 Order name: Protime (+INR) EDMS 07/01 15:45 Order name: PTT, Activated Partial Thromb EDMS 07/01 15:45 Order name: PTT, Activated Partial Thromb EDMS 07/01 12:32 Order name: CT Head Brain wo Cont; Complete Time: 14:02 kb 07/01 12:32 Order name: Chest Single View XRAY; Complete Time: 13:42 kb 07/01 12:48 Order name: CT Aorta for Dissection; Complete Time: 14:08 kb 07/01 15:46 Order name: Echo with Doppler EDMS 07/01 15:46 Order name: Carotid Artery Bilateral; Complete Time: 16:40 EDMS 07/01 15:45 Order name: CONS Physician Consult EDMS 07/01 12:32 Order name: Cardiac monitoring; Complete Time: 13:00 kb 07/01 12:32 Order name: EKG - Nurse/Tech; Complete Time: 13:00 kb 07/01 12:32 Order name: IV Saline Lock; Complete Time: 12:45 kb 07/01 12:32 Order name: Labs collected and sent; Complete Time: 12:45 kb 07/01 12:32 Order name: NPO; Complete Time: 13:01 kb 07/01 12:32 Order name: O2 Per Protocol; Complete Time: 13:01 kb 07/01 12:32 Order name: O2 Sat Monitoring; Complete Time: 13:01 kb EC:18 Rate is 60 beats/min. Rhythm is regular. QRS [place] is Normal. NE interval is normal at kb 150 msec. QRS interval is normal at 96 msec. QT interval is normal at 462 msec. Administered Medications: 12:37 Drug: NS 0.9% IV 1000 ml IV at 1000 ml once; to be given as a bolus over 60 minutes ss Route: IV; Rate: 1000 ml; Site: left antecubital; 14:47 Follow up: Response: No adverse reaction; IV Status: Completed infusion; IV Intake: db 1000ml 14:47 Drug: Famotidine IVP 20 mg IVP once; dilute with 10 mL 0.9% NaCl; give over 2 minutes db Route: IVP; Site: left antecubital; 16:56 Follow up: Response: No adverse reaction db Disposition: 18:23 Co-signature as Attending Physician, Victor Manuel Burt MD I reviewed the patient's care rn provided by the Advanced Practice Provider and agree with the diagnosis and treatment plan. Disposition Summary: 07/01/25 14:20 Hospitalization Ordered Notes: Hospitalization Status: Inpatient Admission kb Provider: Ashlee Perrin Location: Telemetry/MedSur (Inpatient) kb Condition: Stable kb Problem: new kb Symptoms: are unchanged kb Bed/Room Type: Standard kb Room Assignment: 403(07/01/25 15:50) bd Diagnosis - Hypotension, unspecified kb - Syncope kb Forms: - Medication Reconciliation Form kb - SBAR form kb - Leadership Thank You Letter kb Critical care time excluding procedures: 14:18 Critical care time: Bedside Care: 10 minutes, Consultation: 10 minutes, Family kb Intervention: 11 minutes. Total time: 31 minutes Signatures: Dispatcher [employer] EDRebeca Miller, KWAME-Danica LEAD CARGO MOVER-Em Fernández Roman, MD MD rn Blanchard, Shelby, RN RN ss Jim Dukes, MAGGIE RN bp Megan Dale, RN RN db Corrections: (The following items were deleted from the chart) 12:33 12:33 BASIC METABOLIC PANEL+C.LAB.BRZ ordered. EDMS EDMS 12:33 12:33 CBC+H.LAB.BRZ ordered. EDMS EDMS 12:33 12:33 HEPATIC FUNCTION+C.LAB.BRZ ordered. EDMS EDMS 12:33 12:33 MAGNESIUM+C.LAB.BRZ ordered. EDMS EDMS 12:33 12:33 PROTIME (+INR)+COAG.LAB.BRZ ordered. EDMS EDMS 12:33 12:33 PTT, ACTIVATED+COAG.LAB.BRZ ordered. EDMS EDMS 12:33 12:33 Troponin High Sensitivity+C.LAB.BRZ ordered. EDMS EDMS 12:33 12:33 LIPASE+C.LAB.BRZ ordered. EDMS EDMS 12:33 12:33 Head Brain Wo Cont+CT.RAD.BRZ ordered. EDMS EDMS 12:33 12:33 Chest Single View+RAD.RAD.BRZ ordered. EDMS EDMS 12:33 12:33 Abdomen Pelvis W Con+CT.RAD.BRZ ordered. EDMS EDMS 15:50 14:20 kb bd
[2025-07-01] MEDS ORDERED: FAMOTIDINE 20 MG/2 ML VIAL IV ONE (14:25)
[2025-07-01] MEDS ORDERED: ONDANSETRON 4 MG/2 ML VIAL IV PRN (15:41)
--- NOTE | 2025-07-01 16:09 | P.HP ---
Certification for Inpatient Patient admitted to: Inpatient With expected LOS: >2 Midnights Patient will require the following post-hospital care: None Practitioner: I am a practitioner with admitting privileges, knowledge of patient current condition, hospital course, and medical plan of care. Services: Services provided to patient in accordance with Admission requirements found in Title 42 Section 412.3 of the Code of Federal Regulations Patient History Date of Service: 07/01/25 Reason for admission: Difficulty seeing and syncope with collapse History of Present Illness: 79-year-old female who presents to the hospital after having a syncopal episode. She fell and was having a hard time regaining her balance. She came to the emergency room for further evaluation. In the ER, she was having vision problems. CT imaging was unremarkable. Long discussion with family members regarding her clinical symptoms. She mainly [place]ian-speaking. MRI of the brain is pending. Carotid Doppler and echocardiogram pending as well. At this time patient will be admitted to the hospital for further workup. Allergies No Known Allergies Allergy (Verified 11/12/12 02:56) Home Medications: Metformin HCl [Glucophage*] 1,000 mg PO BID 11/12/12 Aspirin [Low Dose Aspirin EC] 81 mg PO DAILY 07/29/16 Solifenacin [Vesicare*] 5 mg PO DAILY 07/29/16 Atorvastatin Calcium 20 mg PO ONCE 07/01/25 Pregabalin 100 mg PO TID 07/01/25 lisinopriL [Lisinopril] 5 mg PO DAILY 07/01/25 - Past Medical/Surgical History Diabetic: Yes -: Guillain-Rialto -: bunyons removed from left foot -: back surgery due to fall and dislocation of discs -: appendectomy -: cholecystectomy - Family History Father Medical History: Cancer, Other (see notes) Notes: Prostate Mother Medical History: Other (see notes) Notes: severe rheumatoid arthritis - Social History Smoking Status: Former smoker Alcohol use: No CD- Drugs: No Caffeine use: Yes Review of Systems 10-point ROS is otherwise unremarkable Physical Examination - Physical Exam General: Alert, In no apparent distress, Oriented x3 HEENT: Atraumatic, PERRLA, Mucous membr. moist/pink, EOMI, Sclerae nonicteric Neck: Supple, 2+ carotid pulse no bruit, No LAD, Without JVD or thyroid abnormality Respiratory: Clear to auscultation bilaterally, Normal air movement Cardiovascular: Regular rate/rhythm, Normal S1 S2 Gastrointestinal: Normal bowel sounds, Non-distended, No tenderness Musculoskeletal: No tenderness Integumentary: No rashes Neurological: Normal speech, Normal tone, Sensation intact, Cranial nerves 3-12 intact, Normal affect, Abnormal gait, Abnormal strength Lymphatics: No axilla or inguinal lymphadenopathy - Studies Laboratory Data (last 24 hrs) 07/01/25 07/01/25 07/01/25 12:36 12:36 12:36 WBC 12.00 H Hgb 12.5 Hct 37.7 Plt Count 158 PT 12.5 INR 1.11 APTT 24.4 L Sodium 140 Potassium 3.6 BUN 24 H Creatinine 1.10 H Glucose 206 H Magnesium 2.1 Total Bilirubin 0.6 AST 12 L ALT 20 Alkaline Phosphatase 82 Lipase 45 Assessment & Plan - Problems (Diagnosis) (1) Syncope and collapse Current Visit: Yes Status: Acute (2) Blurred vision Current Visit: Yes Status: Acute (3) Type 2 diabetes mellitus Current Visit: Yes Status: Acute - Plan Plan: 1. Syncope and collapse with visual acuity diminishing; continue with MRI of the brain. Carotid Doppler and echocardiogram pending. Continue with antiplatelet therapy and statin therapy. Monitor hemodynamics closely. Patient will be admitted for inpatient hospitalization 2. History of type 2 diabetes; strict blood sugar control 3. GI DVT prophylaxis Discharge Plan: Home Plan to discharge in: Greater than 2 days - Advance Directives Does patient have a Living Will: No Does patient have a Durable POA for Healthcare: No - Code Status/Comfort Care Code Status Assessed: Yes Code Status: Full Code Critical Care: No Time Spent Managing PTS Care (In Minutes): 45
--- NOTE | 2025-07-01 16:38 | RAD REPORT ---
EXAMINATION: CAROTID DUPLEX ULTRASOUND CLINICAL INDICATION: syncope TECHNIQUE: Real-time grayscale, color flow and spectral Doppler sonographic images were obtained of t he extracranial carotid system using a linear transducer. COMPARISON: No prior exam. FINDINGS: RIGHT: Common carotid artery: 68 cm/s Internal carotid artery: 86 cm/s External carotid artery: 106 cm/s Right ICA/CCA ratio: 1.3 Plaque: Mild hard plaque Vertebral artery Antegrade LEFT: Common carotid artery: 120 cm/s Internal carotid artery: 71 cm/s External carotid artery: 68 cm/s Left ICA/CCA ratio: 0.6 Plaque: Mild hard plaque Vertebral artery Antegrade IMPRESSION: No hemodynamically significant stenosis (greater than 50%) within the extracranial internal carotid a rteries. The degrees of stenosis, if any, are quantified according to the consensus statement of the Society o f Radiologists in Ultrasound (SRUS). Please refer to Hilario E, Garland C, Jamar G et al. Carotid Artery Stenosis: Lawrence-Scale and Doppler US Diagnosis--Society of Radiologists in Ultrasound Consensus Conference. Radiology. 2003;229(2):340-6.
[2025-07-01] MEDS: NA CHLORIDE 0.9% 1,000 ML IV SCH (17:24)
[2025-07-01] MEDS: ASPIRIN EC 81 MG TAB PO ONE (17:24)
[2025-07-01] MEDS: ACETAMINOPHEN 500 MG TAB PO PRN (17:24)
[2025-07-01 17:52] VITALS: BMI 26.6
[2025-07-01] MEDS: PNEUMOCOCCAL VACCINE 0.5 ML IMVAC ONE (18:00)
[2025-07-01] MEDS ORDERED: SODIUM CHLORIDE 0.9% 10ML INJ IV PRN (18:57)
[2025-07-01] MEDS: PANTOPRAZOLE 40 MG INJ IVP ONE (21:03)
[2025-07-01] MEDS: ATORVASTATIN 40 MG TAB PO SCH (21:03)
[2025-07-02 05:08] LABS: Absolute Lymphocytes (CBC) 1.1 K/uL (0.7-4.9); Hematocrit 37.3 % (36.0-45.0); Hemoglobin 12.5 g/dL (12.0-15.0); MCH 29.7 pg (27.0-35.0); MCHC 33.5 g/dL (32.0-36.0); MCV 88.5 fL (80-100); MPV 8.0 fL (7.6-11.3); Nucleated RBC Absolute Count 0.0 (0-0); Nucleated Red Blood Cells % 0.0 % (0-0); RBC Red Blood Cell Count 4.22 M/uL (3.86-4.86); White Blood Count 12.10 thou/uL (4.3-10.9)
[2025-07-02 05:19] LABS: PT Prothrombin Time 12.5 SECONDS (10-13.0); PTT, Activated Partial Thromb 26.7 SECONDS (27.2-37.4); Protime INR 1.11
[2025-07-02 05:31] LABS: ALT/SGPT 19 U/L (13-56); AST/SGOT < 10 U/L (15-37); Albumin 3.0 g/dL (3.4-5.0); Albumin/Globulin Ratio 1.0 (1.1-1.8); Alkaline Phosphatase 75 U/L (45-117); Anion Gap 8.9 mEq/L (5.0-15.0); BUN Blood Urea Nitrogen 18 mg/dL (7-18); Globulin 2.9 g/dL (2.3-3.5); Glucose Level 184 mg/dL (74-106); Potassium 3.9 mEq/L (3.5-5.1)
[2025-07-02 05:37] LABS: Blood Morphology Comment NOT SEEN (NOT SEEN); Differential Total Cells Count 100; Segmented Neutrophils 53 % (40-80)
[2025-07-02] MEDS: ASPIRIN EC 81 MG TAB PO SCH (09:31)
[2025-07-02 10:13] VITALS: O2SAT 97
--- NOTE | 2025-07-02 10:24 | RAD REPORT ---
EXAMINATION: MRI BRAIN WITHOUT CONTRAST CLINICAL INDICATION: Female, 79 years old.[facility] N CVA TECHNIQUE: Multiplanar multisequence MR images of the brain were obtained without intravenous contras t. Unless otherwise specified, incidental findings do not require dedicated imaging follow-up. COMPARISON: 07/01/[address] 10/12/2017 brain MRI FINDINGS: INTRACRANIAL: Midline structures are unremarkable. 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 Diff usion-weighted images show no acute or early subacute infarction. No abnormal brain parenchymal signal. The ventricles are normal in size and morphology. No augmented susceptibility signal abnormal ity. There is no mass effect or midline shift. No abnormal extraaxial fluid collection. VASCULATURE: Normal signal voids in the larger intracranial arteries and dural venous sinuses. SINUSES: The paranasal sinuses and mastoid air cells are predominantly clear. BONE: The marrow signal pattern is within normal limits. IMPRESSION: No significant intracranial abnormalities.
--- NOTE | 2025-07-02 12:05 | P.CNS ---
Date of Consult: 07/02/25 Chief Complaint: Difficulty seeing and syncope with collapse History of Present Illness: Patient with PMH of DM, presented with chest pain for the last 3 months, also daughter report that she called yesterday as she did not feel good and passed out, can not recall the exact details of that, patient also report BARCENAS, no lower extremities edema. Allergies No Known Allergies Allergy (Verified 11/12/12 02:56) Home medications list reviewed: Yes Home Medications: Metformin HCl [Glucophage*] 1,000 mg PO BID 11/12/12 Aspirin [Low Dose Aspirin EC] 81 mg PO DAILY 07/29/16 Solifenacin [Vesicare*] 5 mg PO DAILY 07/29/16 Atorvastatin Calcium 20 mg PO ONCE 07/01/25 Pregabalin 100 mg PO TID 07/01/25 lisinopriL [Lisinopril] 5 mg PO DAILY 07/01/25 - Past Medical/Surgical History Diabetic: Yes -: Guillain-Tracy -: bunyons removed from left foot -: back surgery due to fall and dislocation of discs -: appendectomy -: cholecystectomy - Family History Father Medical History: Cancer, Other (see notes) Notes: Prostate Mother Medical History: Other (see notes) Notes: severe rheumatoid arthritis - Social History Smoking Status: Never smoker Alcohol use: No CD- Drugs: No Caffeine use: Yes Place of Residence: Home Review of Systems 10-point ROS is otherwise unremarkable Physical Examination Temp Pulse Resp BP Pulse Ox 98.2 F 87 16 117/54 L 97 07/02/25 08:00 07/02/25 08:00 07/02/25 08:00 07/02/25 08:00 07/02/25 08:00 General: Alert, In no apparent distress HEENT: Atraumatic, PERRLA, Mucous membr. moist/pink, EOMI, Sclerae nonicteric Neck: Supple, 2+ carotid pulse no bruit, No LAD, Without JVD or thyroid abnormality Respiratory: Clear to auscultation bilaterally, Normal air movement Cardiovascular: Regular rate/rhythm, Normal S1 S2 Gastrointestinal: Normal bowel sounds, No tenderness Musculoskeletal: No tenderness Integumentary: No rashes Neurological: Normal gait, Normal speech, Normal tone, Normal affect Lymphatics: No axilla or inguinal lymphadenopathy Laboratory Data (last 24 hrs) 07/01/25 07/01/25 07/01/25 12:36 12:36 12:36 WBC 12.00 H Hgb 12.5 Hct 37.7 Plt Count 158 PT 12.5 INR 1.11 APTT 24.4 L Sodium 140 Potassium 3.6 BUN 24 H Creatinine 1.10 H Glucose 206 H Magnesium 2.1 Total Bilirubin 0.6 AST 12 L ALT 20 Alkaline Phosphatase 82 Lipase 45 - Problems (1) Syncope and collapse Current Visit: Yes Status: Acute Plan: patient tele did not show any significant arrhythmia if echo is normal then patient will need outpatient event monitor continue to monitor. (2) Chest pain Onset Date: 07/30/16 Current Visit: No Status: Acute Plan: continue ASA 81 mg daily continue Lipitor 40 mg daily if echo is normal then outpatient follow up with cardiology for Cardiac PET scan.
--- NOTE | 2025-07-02 13:09 | ECHO ---
HEIGHT: 5 ft 7 in WEIGHT: 170 lb 0 oz DATE OF STUDY: 07/02/[address]: Ashlee Perrin MD 2-DIMENSIONAL: YES M.MODE: YES DOPPLER: YES COLOR FLOW: YES TDS: PORTABLE: YES DEFINITY: BUBBLE STUDY: DIAGNOSIS: SYNCOPE CARDIAC HISTORY: CATHERIZATION: SURGERY: PROSTHETIC VALVE: PACEMAKER: MEASUREMENTS (cm) DIASTOLIC (NORMALS) SYSTOLIC (NORMALS) IVSd 1.0 (0.6-1.2) LA Diam 2.8 (1.9-4.0) LVEF 60-65% LVIDd 4.1 (3.5-5.7) LVIDs 2.4 (2.0-3.5) %FS 41% LVPWd 1.1 (0.6-1.2) Ao Diam 2.4 (2.0-3.7) 2 DIMENSIONAL ASSESSMENT: RIGHT ATRIUM: NORMAL LEFT ATRIUM: NORMAL RIGHT VENTRICLE: NORMAL LEFT VENTRICLE: NORMAL TRICUSPID VALVE: MILD TRICUSPID REGURGITATION MITRAL VALVE: CALCIFIED, POSTERIOR LEAFLET PULMONIC VALVE: NORMAL AORTIC VALVE: NORMAL PERICARDIAL EFFUSION: NONE AORTIC ROOT: NORMAL LEFT VENTRICULAR WALL MOTION: NORMAL DOPPLER/COLOR FLOW: NORMAL COMMENTS: 1. NORMAL LEFT VENTRICULAR SYSTOLIC FUNCTION, EJECTION FRACTION 60-65%, NORMAL WALL MOTION 2. CALCIFIED POSTERIOR LEAFLET OF THE MITRAL VALVE, NO STENOSIS TECHNOLOGIST: KELLEN CLEMENTE
[2025-07-02 17:31] LABS: Sqamous Epithelial <5 /HPF (None Seen); Urine Culture Reflex Order NOT NEEDED; Urine Microscopic Reflex YN ORDER UMIC
[2025-07-02] MEDS: MORPHINE 2 MG/ML SYR IV PRN (19:56)
[2025-07-03 06:05] LABS: Absolute Lymphocytes (CBC) 1.7 K/uL (0.7-4.9); Hematocrit 34.8 % (36.0-45.0); Hemoglobin 11.8 g/dL (12.0-15.0); MCH 29.9 pg (27.0-35.0); MCHC 34.0 g/dL (32.0-36.0); MCV 87.9 fL (80-100); MPV 7.6 fL (7.6-11.3); Nucleated RBC Absolute Count 0.0 (0-0); Nucleated Red Blood Cells % 0.0 % (0-0); RBC Red Blood Cell Count 3.96 M/uL (3.86-4.86); White Blood Count 14.50 thou/uL (4.3-10.9)
[2025-07-03 06:28] LABS: ALT/SGPT 18.0 U/L (13-56); AST/SGOT 12.0 U/L (15-37); Albumin 2.8 g/dL (3.4-5.0); Albumin/Globulin Ratio 0.9 (1.1-1.8); Alkaline Phosphatase 76.0 U/L (45-117); Anion Gap 11.5 mEq/L (5.0-15.0); BUN Blood Urea Nitrogen 10.0 mg/dL (7-18); Globulin 3.0 g/dL (2.3-3.5); Glucose Level 155.0 mg/dL (74-106); Potassium 3.5 mEq/L (3.5-5.1)
--- NOTE | 2025-07-03 11:45 | P.PN ---
Subjective Date of Service: 07/03/25 Chief Complaint: Difficulty seeing and syncope with collapse Subjective: No new changes, No C/O voiced, Tolerating diet, Ambulating, Improving Review of Systems 10-point ROS is otherwise unremarkable Physical Examination - Vital Signs Temperature: 98.1 F Blood Pressure: 108/52 Pulse: 81 Respirations: 16 Pulse Ox (%): 95 - Physical Exam General: Alert, In no apparent distress HEENT: Atraumatic, PERRLA, EOMI Neck: Supple, JVD not distended Respiratory: Clear to auscultation bilaterally, Normal air movement Cardiovascular: Regular rate/rhythm, Normal S1 S2 Gastrointestinal: Normal bowel sounds, No tenderness Musculoskeletal: No tenderness Integumentary: No rashes Neurological: Normal speech, Normal tone, Normal affect Lymphatics: No axilla or inguinal lymphadenopathy - Studies Medications List Reviewed: Yes Assessment And Plan - Current Problems (Diagnosis) (1) Syncope and collapse Current Visit: Yes Status: Acute Plan: patient tele did not show any significant arrhythmia if echo is normal then patient will need outpatient event monitor No further inpatient cardiac work up needed. (2) Chest pain Onset Date: 07/30/16 Current Visit: No Status: Acute Plan: continue ASA 81 mg daily continue Lipitor 40 mg daily echo is normal outpatient follow up with cardiology for Cardiac PET scan.
[2025-07-03] MEDS: PANTOPRAZOLE 40 MG INJ IVP ONE ×2 (13:16→16:43)
[2025-07-03] MEDS ORDERED: SODIUM CHLORIDE 0.9% 10ML INJ IV PRN (13:16)
[2025-07-03] MEDS: ENOXAPARIN 40 MG/0.4 ML SQ ONE (13:16)
[2025-07-03] MEDS: FEXOFENADINE 180 MG TAB PO PRN (13:17)
[2025-07-03] MEDS: PREGABALIN 50 MG CAP PO SCH (13:17)
--- NOTE | 2025-07-03 13:18 | RAD REPORT ---
EXAMINATION: Head angio CLINICAL INDICATION: Female, 79 years old. Blurred vision TECHNIQUE: Axial CT images were obtained through the head after intravenous contrast utilizing angiog raphic protocol with 3D post-processing (maximum intensity projection images, volume rendered images and/or shaded surface rendered images). One or more of the following dose reduction technique s were used: Automated exposure control, adjustment of the mA and/or kV according to patient size, and/or iterative reconstruction. Unless otherwise specified, incidental findings do not require dedic ated imaging follow-up. COMPARISON: No prior exam. FINDINGS: RIGHT: ICA: Atherosclerotic calcifications but no flow limiting stenosis. CARISA: Patent MCA: Patent DIRECTOR BUSINESS MANAGEMENT: Patent LEFT: ICA: Atherosclerotic calcifications but no flow limiting stenosis. CARISA: Patent MCA: Patent DIRECTOR BUSINESS MANAGEMENT: Patent Vertebrobasilar: The vertebral arteries are patent. The basilar artery is normal in appearance. 3D images confirm these findings. IMPRESSION: No occlusion, aneurysm, or hemodynamically significant stenosis identified.
[2025-07-03] MEDS: PIPER TAZO 3.375 GM in NA CHLORIDE 0.9% 100 ML IV SCH (16:43)
[2025-07-03] MEDS: PANTOPRAZOLE 40 MG INJ IVP SCH (21:00)
[2025-07-03] MEDS: HYDROCORTISONE 2.5% PR SCH (21:00)
--- NOTE | 2025-07-04 08:15 | RAD REPORT ---
EXAMINATION: CT ABDOMEN AND PELVIS WITHOUT CONTRAST CLINICAL INDICATION: GI BLEED TECHNIQUE: CT abdomen and pelvis was performed, without IV contrast, as per department protocol. Axia l, sagittal and coronal reconstructions were obtained. One or more of the following dose reduction techniques were used: Automated exposure control, adjustment of the mA and kV according to the patien t size, and iterative reconstruction. Unless otherwise specified, incidental findings do not require dedicated imaging follow-up. COMPARISON: 07/01/2025 FINDINGS: The lack of intravenous contrast limits the sensitivity of this exam for evaluation of solid visceral organs, vascular structures, and retroperitoneum. LOWER CHEST: The visualized lung bases are clear. LIVER:Normal in size and contour. No focal lesion. Cholecystectomy clips. SPLEEN: Normal size. No focal lesion. PANCREAS: No mass, ductal dilation, or max-pancreatic fluid. ADRENALS: Normal; no mass. KIDNEYS AND URETERS: Normal size and contour. No hydronephrosis. URINARY BLADDER: Normal contour. GASTROINTESTINAL TRACT: No evidence of bowel obstruction, significant free fluid, free air or abscess . Sigmoid diverticulosis coli with mild wall thickening. Mild thickening of the left colon also present. APPENDIX: Appendix surgically absent. LYMPH NODES: No lymphadenopathy. MUSCULOSKELETAL: Moderate lower lumbar degenerative changes. ADDITIONAL FINDINGS: Aortoiliac atherosclerosis. IMPRESSION: Mild/moderate colitis pattern suspected involving the descending colon and proximal sigmoid colon. No pneumatosis coli. Prominent sigmoid diverticulosis coli without diverticulitis.
--- NOTE | 2025-07-04 08:19 | RAD REPORT ---
EXAM: CTA of the abdomen and pelvis HISTORY: Chest pain and back pain GI BLEED COMPARISON: None TECHNIQUE: Multiple contiguous axial images were obtained a CTA of the abdomen and pelvis with contra st per angiographic protocol. This involves 3D reconstructions, MIPs, volume rendered images and/or shaded surface rendering. One or more of the following dose reduction techniques were used: Automated exposure control, adjustment of the mA and/or kV according to patient size, and/or iterative reconstruction. Unless otherwise specified, incidental findings do not require dedicated imaging foll ow-up. Sagittal and coronal 3-D MIP reformats were performed. FINDINGS: DESCENDING THORACIC AORTA: Included infeior aspect demonstrates normal caliber without evidence of d issection or aneurysmal dilatation. ABDOMINAL AORTA: Normal caliber without evidence of dissection or aneurysmal dilatation. CELIAC TRUNK: Mild hard plaque is seen at the celiac axis origin. SMA: Mild/moderate hard plaque is seen SMA ostium. DUGLAS: Patent RENAL ARTERIES: Bilateral single renal arteries without significant atherosclerotic disease. LIVER: Mild liver.. Cholecystectomy. SPLEEN: Unremarkable. PANCREAS: Unremarkable. KIDNEYS: Unremarkable. ADRENALS: Unremarkable. BOWEL: Mild to moderately inflamed appearance to the descending colon and sigmoid colon suggesting co litis.. Sigmoid diverticulosis coli also present. RETROPERITONEUM: No lymphadenopathy. BONES: Moderate lumbosacral degenerative changes. IMPRESSION: No significant flow abnormality is detected.
[2025-07-04] MEDS: ENOXAPARIN 40 MG/0.4 ML SQ SCH (08:27)
[2025-07-04 12:04] LABS: Absolute Lymphocytes (CBC) 0.6 K/uL (0.7-4.9); Hematocrit 34.7 % (36.0-45.0); Hemoglobin 11.6 g/dL (12.0-15.0); MCH 29.5 pg (27.0-35.0); MCHC 33.5 g/dL (32.0-36.0); MCV 88.3 fL (80-100); MPV 8.0 fL (7.6-11.3); Nucleated RBC Absolute Count 0.0 (0-0); Nucleated Red Blood Cells % 0.0 % (0-0); RBC Red Blood Cell Count 3.94 M/uL (3.86-4.86); White Blood Count 8.60 thou/uL (4.3-10.9)
[2025-07-04 12:19] LABS: ALT/SGPT 16.0 U/L (13-56); AST/SGOT 11.0 U/L (15-37); Albumin 2.6 g/dL (3.4-5.0); Albumin/Globulin Ratio 0.8 (1.1-1.8); Alkaline Phosphatase 75.0 U/L (45-117); Anion Gap 10.2 mEq/L (5.0-15.0); BUN Blood Urea Nitrogen 10.0 mg/dL (7-18); Globulin 3.2 g/dL (2.3-3.5); Glucose Level 174.0 mg/dL (74-106); Potassium 4.2 mEq/L (3.5-5.1)
--- NOTE | 2025-07-04 12:53 | P.PN ---
Subjective Date of Service: 07/04/25 Chief Complaint: Difficulty seeing and syncope with collapse Subjective: No new changes, No C/O voiced, Tolerating diet, Ambulating, Improving Review of Systems 10-point ROS is otherwise unremarkable Physical Examination - Vital Signs Temperature: 97.5 F Blood Pressure: 140/65 Pulse: 64 Respirations: 18 Pulse Ox (%): 97 - Physical Exam General: Alert, In no apparent distress HEENT: Atraumatic, PERRLA, EOMI Neck: Supple, JVD not distended Respiratory: Clear to auscultation bilaterally, Normal air movement Cardiovascular: Regular rate/rhythm, Normal S1 S2 Gastrointestinal: Normal bowel sounds, No tenderness Musculoskeletal: No tenderness Integumentary: No rashes Neurological: Normal speech, Normal tone, Normal affect Lymphatics: No axilla or inguinal lymphadenopathy - Studies Medications List Reviewed: Yes Assessment And Plan - Current Problems (Diagnosis) (1) Syncope and collapse Current Visit: Yes Status: Acute Plan: patient tele did not show any significant arrhythmia Echo shows normal EF Outpatient follow up with cardiology for event monitor No further inpatient cardiac work up needed. Cardiology will sign off, please call with any questions. (2) Chest pain Onset Date: 07/30/16 Current Visit: No Status: Acute Plan: continue ASA 81 mg daily continue Lipitor 40 mg daily echo is normal outpatient follow up with cardiology for Cardiac PET scan.
[2025-07-04 13:06] LABS: White Blood Cell Scan OK (OK)
[2025-07-04 13:07] LABS: Blood Morphology Comment NOT SEEN (NOT SEEN)
[2025-07-04 16:28] VITALS: BP 137/86; TEMP 98.2
--- NOTE | 2025-07-04 19:18 | CON ---
Reason For Consultation: Consultation called because of syncope. History Of Present Illness: Ms. Whyte is a 79-year-old patient, who has history of diabetes mellit us, Guillain-Napavine syndrome, back surgery, dyslipidemia, neuropathic pain, hypertension, who reported ly fell at home and had a hard time getting up and regaining her balance. She is actually Indian-sp eaking. The translation over the phone was used to communicate with the patient and family who were in the room. There is no reported episode of tonic-clonic activity, tongue biting, or loss of bowel and bladder control with fall. She was seen at [facility]. Head CT scan was unremarkable. She had a brain MRI which showed no acute ischemic or hemorrhagic changes. Routine electroencephalo gram done capturing awake and sleep modes were normal. CT angiogram of the head showed no significan t atherosclerotic findings. No occlusions, no aneurysms, or hemodynamically significant stenosis. S he also had blood work which showed initially an elevated white blood cell count up to 14,500 yesterd ay with neutrophils of 82.2 and today white blood cell count up to 8.6, neutrophils 86.0. Her compre hensive metabolic panel essentially unremarkable. Chloride slightly elevated, glucose 174, normal li cristobal function studies. C-reactive protein was very elevated to 78.3. Procalcitonin was negative at 0 .05 with normal lactic acid of 1.2. She had a urinalysis showing 3+ glucose, extreme turbidity. At the time of my evaluation, the patient was fully oriented to person, place, situation. Follows co mmands appropriately. She of course communicated in Indian. She had no focal deficits in face, arm , or leg. Family History: Noncontributory. Allergies: NO KNOWN DRUG ALLERGIES. Medications: Tylenol 500 mg every 6 hours as needed, aspirin 162 mg daily, Lipitor 40 mg at bedtime, Lovenox 40 mg subcutaneously daily, Deb 180 mg daily, she is on hydrocortisone rectal cream 2.5% twice daily. She did receive morphine for pain. She is on piperacillin/tazobactam 3.375 mg every 8 hours, Lyrica 100 mg at bedtime, and receiving IV fluids normal saline at 75 cc an hour. Review of Systems: Aside from mentioned above, no fevers, chills, nausea, vomiting, myalgias, arthralgias, rash, headach e, weight change. No psychiatric complaints. Past Surgical History: Bunion removed from left foot. She did have surgery in back, appendectomy, a nd cholecystectomy. Social History: No alcohol, tobacco, or IV drug use. The patient lives with family. She smoked in the past. Physical Examination: Vital Signs: Blood pressure is 140/65, pulse 64, respiratory rate 18, temperature 97.5, oxygen satur ation 97%. Weight 170 pounds, height 5 feet 7 inches, BMI 26.6. General: Ms. Whyte is resting in bed comfortably. She is in no significant distress. HEENT: She is normocephalic, atraumatic. Sclerae anicteric. Oropharynx moist. Neck: Supple. Chest: Clear. Heart: Regular. Extremities: No significant clubbing, cyanosis, or edema noted. She has stocking-glove loss to ligh t touch temperature. She has symmetric strength in upper and lower extremities. She has no focal de ficits in terms of cranial nerves. Assessment And Plan: Ms. Whyte is a 79-year-old patient with reported syncopal episode potentially related to dehydration. There was also a chance of a possible infection, although there is currentl y in terms of her laboratory studies no evidence of urinary tract infection. There is elevated white blood cell count with elevated neutrophils and she is on Zosyn. She is currently at baseline level of functioning. She may be ambulated with the Physical Therapy Service and determined her orthostati c changes, although in her blood pressures, she did have low blood pressure systolic 105/45, 102/56. She may have autonomic dysfunction related to diabetes mellitus and the benefit from abdominal binde r, ANNIE hose if there is a drop in pressure and midodrine. In terms of plan, she may be discharged an d follow up in Dr. Frazier's clinic within the month. Continue with current medication management p er Primary Team and again consider ANNIE hose, abdominal binder, and midodrine if she has orthostatic r elated issues which may be autonomic dysfunction related to diabetes. LB/MODL Voice ID: [id number] Report ID: [id number]
[2025-07-04] MEDS ORDERED: PREGABALIN 50 MG CAP PO SCH (21:00)
--- NOTE | 2025-07-05 09:13 | EEG ---
CHART: [id number] TEST ID#: [id number] DATE OF STUDY: 07/03/2025 THE EEG WAS RECORDED PORTABLE IN THE PATIENT'S ROOM ON A 17 CHANNEL MACHINE. ELECTRODES WERE APPLIED IN THE USUAL MANNER USING THE INTERNATIONAL 10-20 SYSTEM. THE WAKING BACKGROUND RHYTHM IN THIS RECORD CONSISTS OF VERY WELL DEVELOPED AND WELL ORGANIZED WAVES OF 9 HZ., MAXIMAL IN THE POSTERIOR HEAD REGIONS WHICH ATTENUATE NORMALLY WITH EYE OPENING. LOW-VOLTAGE 18-22 HZ ACTIVITY IS EXPRESSED IN THE FRONTAL REGIONS. THERE ARE NO FOCAL OR LATERALIZING FEATURES. NO EPILEPTIFORM ACTIVITY APPEARS. SLEEP OCCURRED NATURALLY. IN ADDITION TO NORMAL SLEEP PATTERNS ARE PRESENT. HYPERVENTILATION WAS NOT PERFORMED. PHOTIC STIMULATION PRODUCED NO DRIVING BILATERALLY. IMPRESSION: NORMAL EEG FOR THE AGE OF THE PATIENT IN [place], DROWSINESS AND SLEEP.
== END 2025-07-04 18:06 | disposition home or self-care (01) | DRG 74 ==
LOC: ER 12:12 → ERHOLD 15:41 → 4TH 16:04 → OBSVTOIN 07-03 15:23
PROVIDERS: ADMIT Hospitalist; ATTEND Hospitalist
DX: E11.43 Type 2 diabetes mellitus with diabetic autonomic (poly)neuropathy (principal); G61.0 Guillain-Barre syndrome; E86.0 Dehydration; R55 Syncope and collapse; Z79.84 Long term (current) use of oral hypoglycemic drugs; Z79.899 Other long term (current) drug therapy; Z23 Encounter for immunization; E11.9 Type 2 diabetes mellitus without complications; Z98.890 Other specified postprocedural states; Z90.49 Acquired absence of other specified parts of digestive tract; Z87.891 Personal history of nicotine dependence; H53.9 Unspecified visual disturbance; E78.5 Hyperlipidemia, unspecified; R07.9 Chest pain, unspecified; I10 Essential (primary) hypertension
CPT/HCPCS: 36415; 70450; 70496; 70551; 71045; 71275; 72191; 74175; 74176; 80048; 80053; 80076; 81001; 82947; 83605; 83690; 83735; 84145; 84484; 85025; 85610; 85730; 86140; 93005; 93306; 93880; 95816; 96361; 96374; 99285; G0378; J1650; J2270; J2405; J2470; J2543; J7030; Q9967